=== PATIENT | male | born 1935 | race Caucasian/White ===

== ENCOUNTER 2022-05-15 15:08 | Outpatient (CLI) | payer MEDICARE, BC, SELFPAY ==
[2022-05-15 17:23] LABS: Chloride* 100 mmol/L (96-114); Potassium* 3.2 mmol/L (3.6-5.1); Sodium* 140 mmol/L (135-149)
[2022-05-15 17:25] LABS: Creatinine* 0.9 mg/dL (0.5-1.5); Estimated Glomerular Filt Rate 84 ml/min
[2022-05-15 17:26] LABS: Blood Urea Nitrogen* 29 mg/dL (7-30); Calcium* 9.2 mg/dL (8.4-10.6); Carbon Dioxide* 29 mmol/L (20-32); Glucose* 116 mg/dL (60-115)
== END 2022-05-15 15:09 | disposition home or self-care (01) ==
PROVIDERS: PCP Family Medicine; Visit Provider Family Medicine
DX: R10.31 Right lower quadrant pain (principal); R06.00 Dyspnea, unspecified; I10 Essential (primary) hypertension
CPT/HCPCS: 80048; 84443

== ENCOUNTER 2022-05-19 10:30 | Outpatient (CLI) | payer MEDICARE, BC, SELFPAY ==
--- NOTE | 2022-05-19 11:00 | CRLHL7_ITS ---
For Patients: As a result of the Century Cures Act, medical imaging exams and procedure reports are released immediately into your electronic medical record. You may view this report before your referring provider. If you have questions, please contact your health care provider. Indication: RLQ pain Technique: Noncontrast CT abdomen and pelvis Please note that all CT scans at this facility use dose modulation, iterative reconstruction, and/or weight-based dosing when appropriate to reduce radiation dose to as low as reasonably achievable. Comparison: 02/17/2019 Findings: Areas of scarring are present within the visualized lungs. No pleural effusion is present. Tortuosity of the descending thoracic aorta noted. Calcified left hilar lymph nodes are present sequela granulomatous disease. Dense calcifications in the coronary arteries. Calcified granulomas in the spleen. Adrenal glands are normal. Simple water attenuation cysts both kidneys. On the left, these cysts measure up to 7.2 cm and on the right there is a cyst measuring 4.4 cm. No renal stones or hydronephrosis. The gallbladder is normal. The noncontrast enhanced liver is within normal limits. Mild pancreatic atrophy. Vascular calcifications in the aorta. No aneurysm. The bladder is incompletely distended. A small left-sided diverticulum is noted. Colonic diverticulosis. No diverticulitis. There is no bowel obstruction or acute areas of inflammation. The appendix is within normal limits. No free air, free fluid or adenopathy. Postoperative changes of left hip replacement and lumbar spine fusion noted. No acute fracture is present. Impression: No acute intra-abdominal or intrapelvic pathology. Normal appendix without evidence of appendicitis. Incidental renal cysts without hydronephrosis. Please note that all CT scans at this facility use dose modulation, iterative reconstruction, and/or weight-based dosing when appropriate to reduce radiation dose to as low as reasonably achievable. Dictated by Jas Olvera MD @ 05/19/2022 12:36:38 PM (Electronically Signed)
== END 2022-05-19 10:31 | disposition home or self-care (01) ==
LOC: CT 10:31
PROVIDERS: PCP Family Medicine; Visit Provider Family Medicine
DX: R10.31 Right lower quadrant pain (principal); N28.1 Cyst of kidney, acquired
CPT/HCPCS: 74176

== ENCOUNTER 2022-08-11 10:52 | Outpatient (CLI) | payer MEDICARE, BC, SELFPAY | END 2022-08-11 10:53 | disposition home or self-care (01) | LOC: RAD 10:55 | PROVIDERS: PCP Family Medicine; Visit Provider Family Medicine | DX: R06.09 Other forms of dyspnea (principal); I51.7 Cardiomegaly; I35.1 Nonrheumatic aortic (valve) insufficiency; I48.20 Chronic atrial fibrillation, unspecified | CPT/HCPCS: 93306 ==

== ENCOUNTER 2022-11-23 17:53 | Emergency (ER) | payer MEDICARE, BC, SELFPAY ==
[2022-11-23 17:58] VITALS: BP 98/63; PULSE 71; RESP 18; TEMP 36.7; O2SAT 94; BMI 33.9
--- NOTE | 2022-11-23 18:23 | CRLHL7_ITS ---
For Patients: As a result of the Century Cures Act, medical imaging exams and procedure reports are released immediately into your electronic medical record. You may view this report before your referring provider. If you have questions, please contact your health care provider. INDICATION: Diarrhea. TECHNIQUE: CT abdomen and pelvis acquired with 97 cc Isovue 370 IV contrast. COMPARISON: 05/19/2022. FINDINGS: Lower chest: Coronary artery calcifications. Calcified left hilar lymph nodes, likely sequela of healed granulomatous disease. Liver: Hepatic steatosis. Gallbladder and bile ducts: Unremarkable. No stones or inflammation. No biliary ductal dilatation. Spleen: Normal in size. Few calcified granulomas. Adrenal glands: Unremarkable. No nodules. Pancreas: Fatty atrophy. Kidneys: Bilateral renal cysts. Subcentimeter hypodense foci are too small to accurately characterize but statistically likely cysts. No stones or hydronephrosis. GI tract: Normal in caliber. No evidence of obstruction. Fluid-filled colon. Scattered colonic diverticula without evidence of diverticulitis. Appendix not visualized. Lymph nodes: No lymphadenopathy. Vasculature: Scattered atherosclerotic calcifications. Omentum/Peritoneum/Abdominal Wall: Small fat containing umbilical hernia. No free air or significant free fluid. Pelvis: Status post prostatectomy. Few small urinary bladder diverticula, possibly sequela of chronic bladder outlet obstruction. Bones: Degenerative changes of the spine. L4-S1 spinal fusion. Left hip arthroplasty. IMPRESSION: 1. Fluid-filled colon, likely reflecting diarrheal state. 2. Scattered colonic diverticula without evidence of diverticulitis. 3. Hepatic steatosis. Please note that all CT scans at this facility use dose modulation, iterative reconstruction, and/or weight-based dosing when appropriate to reduce radiation dose to as low as reasonably achievable. Dictated by Tanner Garcia MD @ 11/23/2022 8:04:55 PM (Electronically Signed)
--- NOTE | 2022-11-23 18:40 | ED.GENADULT ---
HPI - General Adult General Date Seen: 11/23/22 Chief complaint: Diarrhea Stated complaint: Abdominal pain and diarrhea Time Seen by Provider: 11/23/22 18:11 Source: patient and family Mode of arrival: ambulatory Limitations: no limitations History of Present Illness HPI narrative: Patient is an 87-year-old male brought into the ER by his with concerns of watery stools that have gone on just today. He has gone more than 10 times. He has not seen anything black or bloody. He denies any weakness, chest pain, shortness of breath. He has some chronic ankle edema which is unchanged. He had a similar day like this about two weeks ago that resolved in less than 24 hours. He has no appetite but denies vomiting. He is on Coumadin and had a protime checked a couple of weeks ago. Related Data Home Medications Medication Instructions Recorded Confirmed multivitamin (Multiple Vitamins 1 tab PO QAM 12/20/21 05/15/22 tablet) omega-3 fatty acids-fish oil 340 1 cap PO QDAY 12/20/21 05/15/22 mg-1,000 mg capsule (Fish Oil) triamcinolone acetonide 0.5 % 1 applic topical BID 12/20/21 05/15/22 topical cream metolazone 5 mg tablet 5 mg PO QDAY 11/23/22 11/23/22 torsemide 20 mg tablet 20 mg PO QDAY 11/23/22 11/23/22 Previous Rx's Medication Instructions Recorded atorvastatin 20 mg tablet 20 mg PO .Bedtime #90 tabs 12/20/21 metolazone 5 mg tablet 5 mg PO QDAY #90 tabs 12/20/21 oxycodone 5 mg tablet 5 - 10 mg (1 - 2 x 5 mg) PO QPM 01/30/22 PRN pain #45 tabs tramadol 50 mg tablet 50 mg PO Q8H PRN pain #30 tabs 02/25/22 metoprolol succinate 50 mg 50 mg PO DAILY #90 tabs 04/04/22 tablet,extended release 24 hr diltiazem HCl 240 mg See Rx Instructions .Route 05/02/22 capsule,extended release 24 hr .COMPLEX #90 caps potassium chloride 10 mEq 10 meq PO QDAY #90 caps 05/16/22 capsule,extended release gabapentin 100 mg capsule See Rx Instructions .Route 05/26/22 .COMPLEX #180 caps zolpidem 10 mg tablet 10 mg PO .hs #30 tabs 10/05/22 warfarin 5 mg tablet See Rx Instructions PO DAILY #135 11/07/22 tabs Allergies Allergy/AdvReac Type Severity Reaction Status Date / Time No Known Allergies Allergy Verified 11/23/22 18:01 Review of Systems Narrative: Review of systems is outlined above otherwise noted to be negative. He is on Coumadin chronically for atrial fibrillation. He does have some neuropathy symptoms and some hearing loss. [facility] Medical History Encounter for counseling regarding advance directives (06/10/09) Surgical History History of arthroplasty of left hip History of blepharoplasty History of fusion of lumbar spine Status post arthroscopy of right knee (01/01/09) Status post tonsillectomy and adenoidectomy Status post transurethral resection of prostate Social History Smoking Status: Never smoker Non-prescribed substance use: denies use Exam Narrative: Exam Narrative: Vitals noted. He is in no distress. HEENT: Conjunctiva clear. Tympanic membranes are pearly white bilaterally. Posterior pharynx is clear without erythema or exudate. Neck is supple without adenopathy, thyromegaly, carotid bruit. Lungs: Clear to auscultation in all ambrosio. No wheezes, rales, rhonchi. Heart: Irregularly irregular rate and rhythm with a systolic murmur. Abdomen: Soft and nontender. No guarding, rigidity, rebound. Bowel sounds are normal. No palpable masses. Extremities: He has 1+ edema on the left and 2+ on the right. Good distal pulses. Skin: No abnormalities noted of the exposed skin. Neurologic: Awake, alert, fully oriented. Neurologic exam is nonfocal. He has stocking-glove distribution neuropathy. Const: Vital Signs, click to edit/add: Vital Signs - 24 hr 11/23/22 17:58 11/23/22 20:12 Temperature 98.0 F 98.1 F Pulse Rate [Left P ulse Oximeter] 71 70 Respiratory Rate 18 16 Blood Pressure [Ri ght Upper Arm] 98/63 102/64 Pulse Oximetry 94 97 Oxygen Delivery Me thod Room Air Room Air Course Course Hospital Course: Patient seen and examined. He is afebrile and vitally stable. IV is established and he is given 500 mL of normal saline. Labs and CT of the abdomen and pelvis are ordered. Reevaluation(s) Reevaluation #1: CBC, BMP, LFTs are unremarkable. INR is 3.66. CT shows a fluid-filled loops of bowel. No evidence of colitis or other worrisome pathology. Vital Signs Vital signs: Initial Vital Signs Temperature 98.0 F 11/23/22 17:58 Temperature Source Temporal Artery Scan 11/23/22 17:58 Pulse Rate 71 11/23/22 17:58 Pulse Rhythm Regular 11/23/22 17:58 Pulse Strength 3+ Normal 11/23/22 17:58 Respiratory Rate 18 11/23/22 17:58 Blood Pressure 98/63 11/23/22 17:58 Blood Pressure Mean 74 11/23/22 17:58 Blood Pressure Position Sitting 11/23/22 17:58 Pulse Oximetry 94 11/23/22 17:58 Oxygen Delivery Method Room Air 11/23/22 17:58 Vital Signs Temperature 98.0 F 11/23/22 17:58 Pulse Rate 71 11/23/22 17:58 Respiratory Rate 18 11/23/22 17:58 Blood Pressure 98/63 11/23/22 17:58 Pulse Oximetry 94 11/23/22 17:58 Oxygen Delivery Method Room Air 11/23/22 17:58 Temperature 98.1 F 11/23/22 20:12 Pulse Rate 70 11/23/22 20:12 Respiratory Rate 16 11/23/22 20:12 Blood Pressure 102/64 11/23/22 20:12 Pulse Oximetry 97 11/23/22 20:12 Oxygen Delivery Method Room Air 11/23/22 20:12 Medical Decision Making Lab Data Labs: Lab Results 11/23/22 Range/Units 18:35 WBC 9.63 (4.50-11.00) K/uL RBC 4.59 (4.30-5.90) m/uL Hgb 13.5 (13.5-17.5) gm/dL Hct 40.6 (37.0-53.0) % MCV 89 (80-100) fL MCH 29 (26-34) pg MCHC 33 (32-36) gm/dL RDW Coeff of [place] 14.3 (11.5-15.5) % Plt Count 212 (140-440) K/uL Neut % (Auto) 87.3 H (42.0-72.0) % Lymph % (Auto) 3.3 L (20-44) % [place] % (Auto) 8.4 (0.0-11.0) % Eos % (Auto) 0.2 (0.0-7.0) % Baso % (Auto) 0.2 (0.0-3.0) % Neut # (Auto) 8.40 H (1.7-7.0) K/uL Lymph # (Auto) 0.30 L (0.90-2.90) K/uL [place] # (Auto) 0.80 (0.00-0.90) K/UL Eos # (Auto) 0.02 (0.00-0.50) K/uL Baso # (Auto) 0.02 (0.00-0.30) K/uL INR 3.66 H (0.91-1.10) Sodium 135 (135-149) mmol/L Potassium 4.1 (3.6-5.1) mmol/L Chloride 100 (96-114) mmol/L Carbon Dioxide 25 (20-32) mmol/L BUN 33 H (7-30) mg/dL Creatinine 1.2 (0.5-1.5) mg/dL Estimated Creat Clear 39.88 Estimated GFR 59 ml/min Glucose 113 (60-115) mg/dL Calcium 8.0 L (8.4-10.6) mg/dL Total Bilirubin 0.7 (0.1-1.5) mg/dL Direct Bilirubin 0.0 (0.0-0.5) mg/dL AST 27 (12-35) U/L ALT 26 (4-50) U/L Alkaline Phosphatase 62 (40-150) U/L Total Protein 6.4 (6.0-8.3) g/dL Albumin 3.7 (3.3-5.0) g/dL Discharge Plan Discharge Clinical Impression: Diarrhea Patient Disposition: Home, Self-Care Condition: Improved Additional Instructions: Your labs are all reassuring. No Coumadin for 3 days and then resume current dose. Push fluids. [place] diet. Imodium is ok to use if diarrhea not improving over the next 1-2 days. Follow up with Dr Barth if not improving over the next 3-5 days. Tylenol for cramps. Prescriptions: No Action torsemide 20 mg tablet 20 mg PO QDAY metolazone 5 mg tablet 5 mg PO QDAY multivitamin [Multiple Vitamins] Tablet 1 tab PO QAM Fish Oil 340-1,000 mg capsule 1 cap PO QDAY triamcinolone acetonide 0.5 % cream 1 applic topical BID Rx Instructions: Apply to affected areas BID. metolazone 5 mg tablet 5 mg PO QDAY Qty: 90 3RF atorvastatin 20 mg tablet 20 mg PO .Bedtime Qty: 90 3RF oxycodone 5 mg tablet 5 - 10 mg PO QPM PRN (Reason: pain) Qty: 45 0RF tramadol 50 mg tablet 50 mg PO Q8H PRN (Reason: pain) Qty: 30 2RF metoprolol succinate 50 mg tablet extended release 24 hr 50 mg PO DAILY Qty: 90 2RF diltiazem HCl 240 mg capsule,extended release 24hr See Rx Instructions .ROUTE .COMPLEX Qty: 90 3RF Dose Instruction: TAKE ONE CAPSULE BY MOUTH ONCE DAILY Rx Instructions: TAKE ONE CAPSULE BY MOUTH ONCE DAILY potassium chloride 10 mEq capsule, extended release 10 meq PO QDAY Qty: 90 3RF gabapentin 100 mg capsule See Rx Instructions .ROUTE .COMPLEX Qty: 180 3RF Dose Instruction: TAKE TWO CAPSULES BY MOUTH AT BEDTIME Rx Instructions: TAKE TWO CAPSULES BY MOUTH AT BEDTIME zolpidem 10 mg tablet 10 mg PO .hs Qty: 30 2RF warfarin 5 mg tablet See Rx Instructions PO DAILY Qty: 135 4RF Rx Instructions: 5 mg QD except 7.5 mg QWed orally daily; Greene 5 MG, M 5 MG, Tu 5 MG, W 7.5 MG, Th 5 MG, F 5 MG, Sa 5 MG Follow Up/Referrals: Rafa Barth MD [Primary Care Provider] - Stand Alone Forms: [facility] Info Instructions
[2022-11-23 18:46] LABS: Basophils Absolute Auto 0.02 K/uL (0.00-0.30); Basophils Percent Auto 0.2 % (0.0-3.0); Eosinophils Absolute Auto 0.02 K/uL (0.00-0.50); Eosinophils Percent Auto 0.2 % (0.0-7.0); Hematocrit 40.6 % (37.0-53.0); Hemoglobin* 13.5 gm/dL (13.5-17.5); Immature Granulocytes Abs Auto 0.06 K/uL (0.00-0.30); Immature Granulocytes Pct Auto 0.6 %; Lymphocytes Percent Auto 3.3 % (20-44); Mean Corpuscular HGB Conc 33 gm/dL (32-36); Mean Corpuscular Hemoglobin 29 pg (26-34); Mean Corpuscular Volume 89 fL (80-100); Monocytes Percent Auto 8.4 % (0.0-11.0); Neutrophils Percent Auto 87.3 % (42.0-72.0); Platelet Count* 212 K/uL (140-440); RDW Coefficient of Variation % 14.3 % (11.5-15.5); Red Blood Count 4.59 m/uL (4.30-5.90); White Blood Count* 9.63 K/uL (4.50-11.00)
[2022-11-23] MEDS: 0.9 % SODIUM CHLORIDE 500 ML 500 ML 250 ML IV (18:49)
[2022-11-23 18:53] LABS: Slide Review Reflex No
[2022-11-23 19:02] LABS: Albumin* 3.7 g/dL (3.3-5.0)
[2022-11-23 19:03] LABS: Chloride* 100 mmol/L (96-114); Potassium* 4.1 mmol/L (3.6-5.1); Sodium* 135 mmol/L (135-149)
[2022-11-23 19:05] LABS: Alkaline Phosphatase* 62 U/L (40-150); Aspartate Amino Transferase* 27 U/L (12-35); Bilirubin Total* 0.7 mg/dL (0.1-1.5); Blood Urea Nitrogen* 33 mg/dL (7-30); Carbon Dioxide* 25 mmol/L (20-32); Creatinine* 1.2 mg/dL (0.5-1.5); Est. Creatinine Clearance* 39.88; Estimated Glomerular Filt Rate 59 ml/min; INR 3.66 (0.91-1.10); Prothrombin Time 38.1 Seconds; Total Protein* 6.4 g/dL (6.0-8.3)
[2022-11-23 19:06] LABS: Alanine Aminotransferase* 26 U/L (4-50); Glucose* 113 mg/dL (60-115)
[2022-11-23 20:12] VITALS: BP 102/64; PULSE 70; RESP 16; TEMP 36.7; O2SAT 97
== END 2022-11-23 20:40 | disposition home or self-care (01) ==
PROVIDERS: Emergency Provider Family Medicine; PCP Family Medicine
DX: R19.7 Diarrhea, unspecified (principal)
CPT/HCPCS: 36415; 74177; 80048; 80076; 85025; 85610; 99282; 99284; 99285; J7120; Q9967

== ENCOUNTER 2023-01-09 09:13 | Outpatient (CLI) | payer MEDICARE, BC, SELFPAY | END 2023-01-09 09:14 | disposition home or self-care (01) | PROVIDERS: PCP Family Medicine; Visit Provider Family Medicine | DX: Z00.00 Encounter for general adult medical examination without abnormal findings (principal); E78.5 Hyperlipidemia, unspecified; I10 Essential (primary) hypertension; I48.0 Paroxysmal atrial fibrillation; R60.9 Edema, unspecified | CPT/HCPCS: 80048; 80061; 82607; 85610 ==

== ENCOUNTER 2023-02-13 08:58 | Outpatient (CLI) | payer MEDICARE, BC, SELFPAY | END 2023-02-13 08:59 | disposition home or self-care (01) | LOC: NFLDREF 02-14 00:19 | PROVIDERS: PCP Family Medicine; Referring Provider Family Medicine; Visit Provider Family Medicine | DX: I48.0 Paroxysmal atrial fibrillation (principal) | CPT/HCPCS: 85610 ==

== ENCOUNTER 2023-02-19 09:27 | Outpatient (CLI) | payer MEDICARE, BC, SELFPAY | END 2023-02-19 09:28 | disposition home or self-care (01) | LOC: NFLDREF 02-22 09:30 | PROVIDERS: PCP Family Medicine; Referring Provider Family Medicine; Visit Provider Family Medicine | DX: I48.0 Paroxysmal atrial fibrillation (principal); Z79.01 Long term (current) use of anticoagulants | CPT/HCPCS: 85610 ==

== ENCOUNTER 2023-03-20 10:06 | Emergency (ER) | payer MEDICARE, BC, SELFPAY ==
[2023-03-20 10:09] VITALS: BP 154/83; PULSE 62; RESP 18; TEMP 36.3; O2SAT 97; BMI 41.6
--- NOTE | 2023-03-20 11:06 | CRLHL7_ITS ---
For Patients: As a result of the Cures Act, medical imaging exams and procedure reports are released immediately into your electronic medical record. You may view this report before your referring provider. If you have questions, please contact your health care provider. INDICATION: Fall 1 week ago, hip Pain TECHNIQUE: Single view pelvis with AP and frogleg views of the right hip. COMPARISONS: None available. FINDINGS: There is a left hip arthroplasty with extensive osteophyte and joint capsule calcification. The right femoral head is well seated in the acetabulum. There is no evidence of displaced fracture or dislocation. There is moderate degenerative change of the right hip. There is no significant degenerative change. The soft tissues are unremarkable. IMPRESSION: Moderate degenerative change of the right hip without acute osseous abnormality. Dictated by Michael Alegria MD @ 03/20/2023 11:53:39 AM (Electronically Signed)
--- NOTE | 2023-03-20 11:16 | ED_ITS ---
HPI - General Adult General Date Seen: 03/20/23 Chief complaint: Hip Injury/Pain Stated complaint: rt hip pain Time Seen by Provider: 03/20/23 11:01 Source: patient Mode of arrival: ambulatory Limitations: no limitations History of Present Illness HPI narrative: Patient is an 87-year-old gentleman here with his for evaluation of pain in his right hip and leg since a fall about a week ago. He says that initially was hurting just back at the upper posterior leg near the gluteal cleft but it has moved now more up into the hip. He is needing to use a walker because he is not able to put weight on it without that. He denies other injuries. He has had problems with swelling in that leg for the past couple of months, he says he was seen and had some sort of test done, he is not sure exactly what it was or what they were looking for, something to do with blood vessels. He says he was told that that looked fine and that he was ?just getting old, which he says he did not appreciate. Related Data Home Medications Medication Instructions Recorded Confirmed multivitamin (Multiple Vitamins 1 tab PO QAM 12/20/21 01/09/23 tablet) omega-3 fatty acids-fish oil 340 1 cap PO QDAY 12/20/21 01/09/23 mg-1,000 mg capsule (Fish Oil) triamcinolone acetonide 0.5 % 1 applic topical BID 12/20/21 01/09/23 topical cream torsemide 20 mg tablet 20 mg PO QDAY 11/23/22 01/09/23 Previous Rx's Medication Instructions Recorded diltiazem HCl 240 mg See Rx Instructions .Route 05/02/22 capsule,extended release 24 hr .COMPLEX #90 caps potassium chloride 10 mEq 10 meq PO QDAY #90 caps 05/16/22 capsule,extended release zolpidem 10 mg tablet 10 mg PO .hs #30 tabs 10/05/22 warfarin 5 mg tablet See Rx Instructions PO DAILY #135 11/07/22 tabs tramadol 50 mg tablet 50 mg PO Q8H PRN pain #30 tabs 11/27/22 amoxicillin 500 mg capsule 2,000 mg (4 x 500 mg) PO ONCE #8 12/21/22 caps metoprolol succinate 50 mg 50 mg PO DAILY #90 tabs 12/21/22 tablet,extended release 24 hr atorvastatin 20 mg tablet 20 mg PO .Bedtime #90 tabs 12/28/22 metolazone 5 mg tablet 5 mg PO QDAY #90 tabs 01/28/23 Allergies Allergy/AdvReac Type Severity Reaction Status Date / Time No Known Allergies Allergy Verified 01/09/23 08:30 Review of Systems Status of ROS: Reports: 6 or more systems reviewed and unremarkable except as noted in History and below [facility] History Syncope ?R55 - Syncope and collapse (ICD-10) Encounter for counseling regarding advance directives (06/10/09) ?Z71.89 - Other specified counseling (ICD-10) Surgical History Status post transurethral resection of prostate ?Z90.79 - Acquired absence of other genital organ(s) (ICD-10) Status post tonsillectomy and adenoidectomy ?Z90.89 - Acquired absence of other organs (ICD-10) Status post arthroscopy of right knee (01/01/09) ?Z98.890 - Other specified postprocedural states (ICD-10) History of fusion of lumbar spine ?Z98.1 - Arthrodesis status (ICD-10) History of blepharoplasty ?Z98.890 - Other specified postprocedural states (ICD-10) History of arthroplasty of left hip ?Z98.890 - Other specified postprocedural states (ICD-10) Social History What is your current living situation?: I presently have a place to live Problems where you live: no known problems In the past 12 months, utilities in danger of being shut off: no In past 12 months, lack of transportation kept you from medical appts, meetings, work, or getting things needed for daily living: no In the past 12 mos, have been you worried that your food would run out before you had money to buy more?: never true In the past 12 mos, the food you bought just didn't last and you didn't have money to buy more?: never true Smoking Status: Never smoker Non-prescribed substance use: denies use How often does anyone, including family, friends and others, physically hurt you : never How often does anyone, including family, friends and others, insult or talk down to you: never How often does anyone, including family, friends and others, threaten you with harm: never How often does anyone, including family, friends and others, scream or curse at you: never Little interest or pleasure in doing things: more than half the days Feeling down, depressed, or hopeless: several days Exam Narrative: Exam Narrative: Vital signs reviewed In general, alert, well-appearing elderly male, lying comfortably in bed. Extremities: He does have asymmetric edema right greater than left, though he does have edema in both legs. Pulses are intact. He has full range of motion of the right hip, does not complain of pain. He does not have any significant tenderness throughout the lateral hip or groin but is mildly tender over the hamstring. There is no bruising, swelling or deformity. No significant tenderness over the trochanteric bursa. Skin: Warm and dry, no erythema, warmth, rashes or other lesions. Const: Vital Signs, click to edit/add: Vital Signs - 24 hr 03/20/23 10:09 Temperature 97.4 F L Pulse Rate [Right Pulse Oximeter] 62 Respiratory Rate 18 Blood Pressure [Ri ght Upper Arm] 154/83 H Pulse Oximetry 97 Oxygen Delivery Me thod Room Air Documenting provider has reviewed patient's vital signs: yes Course Course ED Course: I reviewed the patient's prior records, his is under the impression that he was seen somewhere here for this leg swelling and had this test done at the hospital but I do not see any record of that. X-rays ordered of the right hip and pelvis. By my review, x-rays of the right hip and pelvis were unremarkable aside from degenerative changes. He has a hip replacement on the left, some arthritis no rodrigue on the right. Final radiology read was negative for acute fracture. He continued to note pain with weight-bearing so I elected to do a CT scan. This is read by Radiology as negative for fracture as well. He does have some stranding around the proximal hamstring muscles consistent with a muscular tendinous injury which certainly is consistent with his presentation. I suspect this is the source of his pain. He has been taking ibuprofen and Tylenol and says it is not providing adequate pain control for him. I gave him 2.5 mg of oxycodone here with some improvement. He is ambulatory with his walker without difficulty and is comfortable going home. He asked if an injection would be helpful, at this time I think that is unlikely since I think the pain is likely coming from the proximal hamstring, but encouraged him to follow up with Orthopedics if he is not gradually improving with conservative measures over the next week or 2. Return any time for worsening. I gave him 4 tablets of oxycodone to use 1/2 tablet as needed in addition to Tylenol 1000 mg daily. Recommend ice and relative rest. Vital Signs Vital signs: Initial Vital Signs Temperature 97.4 F L 03/20/23 10:09 Temperature Source Temporal Artery Scan 03/20/23 10:09 Pulse Rate 62 03/20/23 10:09 Respiratory Rate 18 03/20/23 10:09 Blood Pressure 154/83 H 03/20/23 10:09 Blood Pressure Mean 106 H 03/20/23 10:09 Blood Pressure Position Sitting 03/20/23 10:09 Pulse Oximetry 97 03/20/23 10:09 Oxygen Delivery Method Room Air 03/20/23 10:09 Vital Signs Temperature 97.4 F L 03/20/23 10:09 Pulse Rate 62 03/20/23 10:09 Respiratory Rate 18 03/20/23 10:09 Blood Pressure 154/83 H 03/20/23 10:09 Pulse Oximetry 97 03/20/23 10:09 Oxygen Delivery Method Room Air 03/20/23 10:09 Temperature 97.4 F L 03/20/23 10:09 Pulse Rate 62 03/20/23 10:09 Respiratory Rate 18 03/20/23 10:09 Blood Pressure 154/83 H 03/20/23 10:09 Pulse Oximetry 97 03/20/23 10:09 Oxygen Delivery Method Room Air 03/20/23 10:09 Discharge Plan Discharge Clinical Impression: Right hamstring injury Patient Disposition: Home, Self-Care Condition: Improved Instructions: Hamstring Injury (ED) Additional Instructions: Ice, continue with Tylenol 1000 mg 3 times daily. If needed, you can use oxycodone for uncontrolled pain. Be aware that this can be habit-forming if taken for longer time. , can be associated with dizziness or lightheadedness, fatigue, constipation. Use only as needed. My suspicion is that your pain is coming from muscular injury and is unlikely to be helped by an injection to the hip joint, but if you find you are not improving over the next week or 2 it would be reasonable to follow up with Orthopedics for re-evaluation. [phone] if you need to schedule with them. Prescriptions: No Action torsemide 20 mg tablet 20 mg PO QDAY multivitamin [Multiple Vitamins] Tablet 1 tab PO QAM Fish Oil 340-1,000 mg capsule 1 cap PO QDAY triamcinolone acetonide 0.5 % cream 1 applic topical BID Rx Instructions: Apply to affected areas BID. tramadol 50 mg tablet 50 mg PO Q8H PRN (Reason: pain) Qty: 30 1RF diltiazem HCl 240 mg capsule,extended release 24hr See Rx Instructions .ROUTE .COMPLEX Qty: 90 3RF Dose Instruction: TAKE ONE CAPSULE BY MOUTH ONCE DAILY Rx Instructions: TAKE ONE CAPSULE BY MOUTH ONCE DAILY potassium chloride 10 mEq capsule, extended release 10 meq PO QDAY Qty: 90 3RF zolpidem 10 mg tablet 10 mg PO .hs Qty: 30 2RF warfarin 5 mg tablet See Rx Instructions PO DAILY Qty: 135 4RF Rx Instructions: 5 mg QD except 7.5 mg QWed orally daily; Greene 5 MG, M 5 MG, Tu 5 MG, W 7.5 MG, Th 5 MG, F 5 MG, Sa 5 MG metoprolol succinate 50 mg tablet extended release 24 hr 50 mg PO DAILY Qty: 90 2RF amoxicillin 500 mg capsule 2,000 mg PO ONCE Qty: 8 1RF atorvastatin 20 mg tablet 20 mg PO .Bedtime Qty: 90 0RF metolazone 5 mg tablet 5 mg PO QDAY Qty: 90 3RF Follow Up/Referrals: Rafa Barth MD [Primary Care Provider] - Stand Alone Forms: [facility] Info Instructions
--- NOTE | 2023-03-20 12:06 | CRLHL7_ITS ---
For Patients: As a result of the Century Cures Act, medical imaging exams and procedure reports are released immediately into your electronic medical record. You may view this report before your referring provider. If you have questions, please contact your health care provider. Indication: Fall, painful weight-bearing. Technique: Noncontrast CT of the right hip. Please note that all CT scans at this facility use dose modulation, iterative reconstruction, and/or weight-based dosing when appropriate to reduce radiation dose to as low as reasonably achievable. Comparison: Radiographs 03/20/2023. Findings: The bones are diffusely demineralized, which limits evaluation for nondisplaced fracture. No displaced fractures identified. There is severe right hip osteoarthritis with joint space loss and marginal osteophytes at the acetabulum and femoral head neck junction. Moderate degenerative changes of the right sacroiliac joint. Extensive atherosclerotic arterial calcifications. Mild stranding surrounding the proximal hamstring muscles without definite intramuscular fluid collection. Impression: 1. No displaced fracture identified. If there is continued clinical concern for CT occult fracture, MRI is recommended. 2. Stranding about the proximal hamstring muscles may be related to muscle strain/myotendinous injury. 3. Severe right hip osteoarthritis. Please note that all CT scans at this facility use dose modulation, iterative reconstruction, and/or weight-based dosing when appropriate to reduce radiation dose to as low as reasonably achievable. Dictated by Kristel Nava MD @ 03/20/2023 1:08:50 PM (Electronically Signed)
[2023-03-20] MEDS: OXYCODONE 5 MG TABLET 2.5 MG PO (13:37)
== END 2023-03-20 14:10 | disposition home or self-care (01) ==
PROVIDERS: Emergency Provider Emergency Medicine; PCP Family Medicine
DX: S76.311A Strain of muscle, fascia and tendon of the posterior muscle group at thigh level, right thigh, initial encounter (principal)
CPT/HCPCS: 73502; 73700; 99283; 99284; A9270

== ENCOUNTER 2023-07-20 06:47 | Outpatient (CLI) | payer MEDICARE, BC, SELFPAY ==
--- OUTSIDE RECORDS SUMMARY | 2023-07-21 06:56 | XMS_ITS | Clinical Summary ---
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 0 Active Aosrg-4-GXJ-EPA-F anat Oil 1,000 mg (120 mg-180 mg) [...] mouth once daily. 0 04/13/2022 Active vit C,N-Wx-fyftf-lute in-zeaxan (PreserVision AREDS-2) capsule Take 1 Capsule [...] Name Administration Dates Next Due COVID-19 vaccine ([employer] NTVisualDNA 30mcg/0.3mL) PF, MDV 03/18/2021,08/14/2020,07/24/2020 Influenza, High-dose Inactivated [...] T Respiratory Rate 16 04/20/2017 9:20 AM CAR CHECKER Oxygen Saturation 96% 08/31/2022 1:57 PM CDT Inhaled Oxygen Concentration - - Weight 118.4 kg (261 lb) 08/31/2022 1:57 PM CDT Height 169.5 cm (5' 6.73) 08/11/2022 9:12 AM CS T Body Mass Index 41.21 08/11/2022 9:12 AM CAR CHECKER Plan of Treatment Health Maintenance Due Date [...] Completed 01/24/2012 Medical Devices Implanted Type Area Supervisor Fishing Device Identifier Shelf Expiration Date Model / Serial / Lot Vincent Lmbr 70x5.5mm Tsrh 3d Cvd Titwv - [id number] Implanted:Qty: 2 on 04/17/2017 by Carlos A Del Castillo MD at [facility] Spine Implants N/A: Lumbar Vertebrae Medtronic Spine/Ortho [id number] / / Bone Matrix 6cc Pine Dbf Putty Db - [id number] Implanted:Qty: 1 on 04/17/2017 by Carlos A Del Castillo MD at [facility] N/A: Lumbar Vertebrae Medtronic Spine/Ortho 01/15/2019 [id number] / / [id number] Cnnctr Lmbr Tsrh 3dx Offsettitnm - [id number] Implanted:Qty: 1 on 04/17/2017 by Carlos A Del Castillo MD at [facility] N/A: Lumbar Vertebrae Medtronic Spine/Ortho [id number] / / Bone Matrix 6cc Pine Dbf Putty Dbm - [id number] Implanted:Qty: 1 on 04/17/2017 by Carlos A Del Castillo MD at [facility] N/A: Lumbar Vertebrae Medtronic Spine/Ortho 01/15/2019 [id number] / / [id number] Bone 1-4mm 60cc Medtronic Chips Canclls Frozen - [id number] Implanted:Qty: 1 on 04/17/2017 by Carlos A Del Castillo MD at [facility] N/A: Lumbar Vertebrae Medtronic Spine/Ortho 06/17/2021 [id number] / [id number] / [id number] Spacer Lmbr 63u92ao Capstone Tlif Titnm Coating - [id number] Implanted:Qty: 1 on 04/17/2017 by Carlos A Del Castillo MD at [facility] N/A: Lumbar Vertebrae Medtronic Spine/Ortho 09/24/2023 [id number] / / [id number] Spacer Lmbr [id number] Capstone Tlif Titnm Coating - [id number] Implanted:Qty: 1 on 04/17/2017 by Carlos A Del Castillo MD at [facility] N/A: Lumbar Vertebrae Medtronic Spine/Ortho 08/16/2024 [id number] / / [id number] Screw Lmbr Post 7.5x50mm Tsrh 3dx Og Thin Va - [id number] Implanted:Qty: 3 on 04/17/2017 by Carlos A Del Castillo MD at [facility] N/A: Lumbar Vertebrae Medtronic Spine/Ortho [id number] # / / Screw Lmbr Post 7.5x45mm Tsrh 3dx Og Thin Va - [id number] Implanted:Qty: 3 on 04/17/2017 by Carlos A Del Castillo MD at [facility] N/A: Lumbar Vertebrae Medtronic Spine/Ortho [id number] # / / Set Screw Lmbr Ts 3dx - [id number] Implanted:Qty: 6 on 04/17/2017 by Carlos A Del Castillo MD at [facility] N/A: Lumbar Vertebrae Medtronic Spine/Ortho [id number] / / Cnnctr Lmbr Sm Tsrh 3dx Offsettitnm - [id number] Implanted:Qty: 5 on 04/17/2017 by Carlos A Del Castillo MD at [facility] N/A: Lumbar Vertebrae Medtronic Spine/Ortho [id number] / / Additional Health Concerns Infection Onset [...] Code Status Discussion: Not Discussed Care Teams Splicing Machine Operator Relationship Specialty Start Date End Date Aditi Jackson MD [address] [place] [address] PCP - General Family Practice 09/19/22
== END 2023-07-21 06:48 | disposition home or self-care (01) ==
LOC: AMB 08-15 08:42
PROVIDERS: PCP Family Medicine; Visit Provider Family Medicine
DX: S49.92XA Unspecified injury of left shoulder and upper arm, initial encounter (principal); W18.30XA Fall on same level, unspecified, initial encounter; Y92.007 Garden or yard of unspecified non-institutional (private) residence as the place of occurrence of the external cause
CPT/HCPCS: A0425; A0427

== ENCOUNTER 2023-07-20 08:09 | Emergency (ER) | payer MEDICARE, BC, SELFPAY ==
[2023-07-20] VITALS (24 sets, daily range): BP systolic 135–146; BP diastolic 79–85; PULSE 85–97; RESP 20; TEMP 38.1–38.8; O2SAT 91–96; BMI 39.5
--- NOTE | 2023-07-20 08:27 | XR_ITS ---
Final Report Patient: KRISTINE SIMPSON Facility:?[facility] Patient ID:?[id number] Site Patient ID:?[id number]. Site :?[id number] Study:?XRay Shoulder Left 3 VIEWS-07/20/2023 9:51:35 AM Ordering Physician:GHULAM Final Report: Indication: Injury, pain Technique: Left shoulder 3 views. Comparison: None. Findings: Type 2 acromion is present. Chronic ossicle adjacent to the lateral acromion. Narrowing and spurring at the acromioclavicular and glenohumeral joints. No acute fracture. Impression: No sign of acute injury. Dictated by Jas Olvera MD @ 07/20/2023 10:37:27 AM (Electronic Signature)
--- NOTE | 2023-07-20 08:28 | XR_ITS ---
Final Report Patient: KRISTINE SIMPSON Facility:?[facility] Patient ID:?[id number] Site Patient ID:?[id number]. Site :?[id number] Study:?XRay Chest 2 VIEWS-07/20/2023 9:54:13 AM Ordering Physician:GHULAM Final Report: INDICATION: Shortness of breath TECHNIQUE: Chest 2 views COMPARISON: 02/20/2019 FINDINGS: Reticulonodular densities are present within both lung bases. Cardiomegaly. Aortic tortuosity. No pleural effusion. No vertebral body compression fracture. IMPRESSION: CHF suspected. Dictated by Jas Olvera MD @ 07/20/2023 10:34:36 AM (Electronic Signature)
--- OUTSIDE RECORDS SUMMARY | 2023-07-20 08:37 | XMS_ITS | Clinical Summary ---
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 Max acetaminophen dose: 4000mg in 24 hrs. 0 Active Zyslp-4-MME-EPA-F anat Oil 1,000 mg (120 mg-180 mg) cap Take by mouth. 0 Active diltiazem CD (CARDIZEM CD) 240 mg extended release 24 hr capsule Take 240 mg by mouth once daily. 0 Active metOLazone (ZAROXOLYN) 5 mg tablet Take 5 mg by mouth once daily. 0 12/20/2021 Active atorvastatin (LIPITOR) 20 mg tablet Take 20 mg by mouth at bedtime. 0 04/04/2022 Active cholecalciferol (Vitamin D) 1,000 unit capsule Take 1 Capsule (1,000 units) by mouth once daily. 0 04/13/2022 Active vit C,O-On-clmie-lute in-zeaxan (PreserVision AREDS-2) capsule Take 1 Capsule by mouth once daily. 0 04/13/2022 Active zolpidem (AMBIEN) 10 mg tablet Take 10 mg by mouth at bedtime. 0 02/26/2022 Active gabapentin (NEURONTIN) 100 mg capsule Take 2 Capsules (200 mg) by mouth at bedtime. 0 04/13/2022 Active bisacodyL (DULCOLAX) 10 mg suppositoryIndica tions:Constipatio n, acute Insert 1 Suppository (10 mg) rectally once daily if needed (constipation). 4 Suppository 0 08/11/2022 Active polyethylene glycoL (MIRALAX) 17 gram/scoop powderIndications :Constipation, acute Mix 1 scoop (17 g) in liquid then take by mouth once daily. 289 g 0 08/11/2022 Active ammonium lactate 12% (LACHYDRIN) 12 % creamIndications: Xerosis cutis Apply topically to affected area(s) two times daily. 140 g 3 08/11/2022 Active potassium chloride (MICRO-K) 10 mEq Controlled-releas e capsuleIndication s:Hypokalemia Take 2 Capsules (20 mEq) by mouth once daily with a meal. 0 08/21/2022 Active warfarin (COUMADIN) 5 mg tabletIndications :Chronic atrial fibrillation (HC),Anticoagulat ion monitoring, INR range 2-3 TAKE 5MG BY MOUTH ON SUN/SUN/SUN/SUN/ AND 7.5MG ON SUNDAY/SUNDAY 104 Tablet 01/30/2023 Active Active Problems Problem Noted Date Diagnosed Date Depression, recurrent 08/04/2022 Obesity, morbid 08/04/2022 Chronic atrial fibrillation 04/13/2022 Overview: Since 2011. On warfarin. History of left hip replacement 05/22/2018 Primary osteoarthritis of right hip 05/22/2018 Trochanteric bursitis of both hips 05/22/2018 Spinal stenosis, lumbar [place] on, without neurogenic claudication 04/17/2017 Sensorineural hearing loss, bilateral 07/29/2013 Subjective tinnitus 07/29/2013 Peter's esophagus 03/16/2010 Overview: EGD 03/2010 Peter's esophagus, repeat EGD in 2 years VASOVAGAL SYNCOPE ASCENDING AORTIC ANEURYSM OBSTRUCTIVE SLEEP APNEA BENIGN PROSTATIC HYPERTROPHY Resolved Problems Problem Noted Date Diagnosed Date Resolved Date Anticoagulation monitoring, INR range 2-3 07/25/2022 12/21/2022 Immunizations Name Administration Dates Next Due COVID-19 vaccine (Abcodia NTVault Dragon 30mcg/0.3mL) PF, MDV 03/18/2021,08/14/2020,07/24/2020 Influenza, High-dose Inactivated 019,04/17/2018,03/16/2017,2015,03/29/2015 Influenza, High-dose Quadriv alent Inactivated 03/08/2022,03/10/2021,03/17/2020 Influenza, IIV3 (Age >=3 years) 04/20/2008 Influenza, IIV4 02/13/2017 Pneumococcal conj 13-Valent (Prevnar 13) 04/28/2015 Td, Preservative Free (age > = 7 Years) 04/18/2007 Tdap 01/24/2012 Social History Tobacco Use Types Packs/Day Years Used Date Smoking Tobacco: Never Smokeless Tobacco: Never Tobacco Cessation:Counseling Given: Not Answered Alcohol Use Standard Drinks/Week Comments Not Currently 0 (1 standard drink = 0.6 oz pur e alcohol) PHQ-2 Answer Date Recorded PHQ-2 TOTAL SCORE 4 04/13/2022 Social Connections Answer Date Recorded Frequency of Communication with Friends and Fami ly Not on file 04/18/2023 Alcohol Use Answer Date Recorded How often do you have a drink containing alcohol ? 2 07/25/2022 How many drinks containing a lcohol do you have on a typical day when you are drinking? 0 07/25/2022 How often do you have five or more drinks on one occasion? 0 07/25/2022 Financial Resource Strain Answer Date R ecorded Difficulty of Paying Living Expenses 3 04/13/2022 Difficulty of Paying Living Expenses Not on file 04/13/2022 Food Insecurity Answer Date Recorded Worried About Running Out of Food in the Last Ye ar 1 04/13/2022 Transportation Needs Answer Date Record ed Lack of Transportation (Medical) 1 04/13/2022 Housing Stability Answer Date Recorded Unable to Pay for Housing in the Last Year 1 04/13/2022 Sex and Gender Information Value Date Recorded Sex Assigned at Not on file Gender Identity Not on file Sexual Orientation Not on file Obstetrics History Last Filed Vital Signs Vital Sign Reading Time Taken Comments Blood Pressure 149/82 08/31/2022 1:57 PM CDT Pulse 69 08/31/2022 1:57 PM CDT Temperature 36.8 ??C (98.2 ??F) 04/20/2017 9:20 AM CS T Respiratory Rate 16 04/20/2017 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 Oxygen Saturation 96% 08/31/2022 1:57 PM CDT Inhaled Oxygen Concentration - - Weight 118.4 kg (261 lb) 08/31/2022 1:57 PM CDT Height 169.5 cm (5' 6.73) 08/11/2022 9:12 AM CS T Body Mass Index 41.21 08/11/2022 9:12 AM [employer]PER[employer] GLUING Plan of Treatment Health Maintenance Due Date Last Done Comments Zoster (shingles) series for age 50+ (1 of 2) 1986 Medicare Wellness for age 65+ 2001 Pneumococcal series for age 65+ (2 of 2 - PPSV23 or PCV20) 06/23/2015 04/28/2015 Tetanus booster 01/23/2022 01/24/2012, 04/18/2007 COVID-19 vaccine series ( season) 2023 03/18/2021, 08/14/2020, 07/24/2020 Influenza for age 65+ 02/02/2023 03/08/2022 , 03/10/2021, 03/17/2020, Additional history exists Depression screening for age 12+ 04/13/2023 04/13/20, 04/13/2022 BMI (ht and wt on same day) for age 18+ 08/12/2023 08/11/2022, 04/13/2022 Tdap Completed 01/24/2012 Medical Devices Implanted Type Area Residential Roofer Device Identifier Shelf Expiration Date Model / Serial / Lot Vincent Lmbr 70x5.5mm Tsrh 3d Cvd Titvt - [id number] Implanted:Qty: 2 on 04/17/2017 by Carlos A Del Castillo MD at [facility] Spine Implants N/A: Lumbar Vertebrae Medtronic Spine/Ortho [id number] / / Bone Matrix 6cc Kingsbury Dbf Putty Db - [id number] Implanted:Qty: 1 on 04/17/2017 by Carlos A Del Castillo MD at [facility] N/A: Lumbar Vertebrae Medtronic Spine/Ortho 01/15/2019 [id number] / / [id number] Cnnctr Lmbr Tsrh 3dx Offsettitnm - [id number] Implanted:Qty: 1 on 04/17/2017 by Carlos A Del Castillo MD at [facility] N/A: Lumbar Vertebrae Medtronic Spine/Ortho [id number]# / / Bone Matrix 6cc Kingsbury Dbf Putty Dbm - [id number] Implanted:Qty: 1 on 04/17/2017 by Carlos A Del Castillo MD at [facility] N/A: Lumbar Vertebrae Medtronic Spine/Ortho 01/15/2019 [id number]# / / [id number] Bone 1-4mm 60cc Medtronic Chips Canclls Frozen - [id number] Implanted:Qty: 1 on 04/17/2017 by Carlos A Del Castillo MD at [facility] N/A: Lumbar Vertebrae Medtronic Spine/Ortho 06/17/2021 [id number] / [id number] / [id number] Spacer Lmbr [id number] Capstone Tlif Titnm Coating - [id number] Implanted:Qty: 1 on 04/17/2017 by Carlos A Del Castillo MD at [facility] N/A: Lumbar Vertebrae Medtronic Spine/Ortho 09/24/2023 [id number]# / / [id number] Spacer Lmbr 10o71py Capstone Tlif Titnm Coating - [id number] Implanted:Qty: 1 on 04/17/2017 by Carlos A Del Castillo MD at [facility] N/A: Lumbar Vertebrae Medtronic Spine/Ortho 08/16/2024 [id number]# / / [id number] Screw Lmbr Post 7.5x50mm Tsrh 3dx Og Thin Va - [id number] Implanted:Qty: 3 on 04/17/2017 by Carlos A Del Castillo MD at [facility] N/A: Lumbar Vertebrae Medtronic Spine/Ortho [id number] # / / Screw Lmbr Post 7.5x45mm Tsrh 3dx Og Thin Va - [id number] Implanted:Qty: 3 on 04/17/2017 by Carlos A Del Castillo MD at [facility] N/A: Lumbar Vertebrae Medtronic Spine/Ortho [id number] # / / Set Screw Lmbr Ts 3dx - [id number] Implanted:Qty: 6 on 04/17/2017 by Carlos A Del Castillo MD at [facility] N/A: Lumbar Vertebrae Medtronic Spine/Ortho [id number]# / / Cnnctr Lmbr Sm Tsrh 3dx Offsettitnm - [id number] Implanted:Qty: 5 on 04/17/2017 by Carlos A Del Castillo MD at [facility] N/A: Lumbar Vertebrae Medtronic Spine/Ortho [id number]# / / Additional Health Concerns Infection Onset Date Last Indicated MRSA Clearance Comment:Order contact precautions. Nares surveillance cultures needed to clear patient if <12 months since positive culture. If >12 months since positive culture, precautions can be discontinued if patient has no MRSA risk factors. #1 +MRSA right ring wound, 7 04/12/2017 04/12/2017 MRSA Comment:Order contact precautions. Nares surveillance cultures needed to clear patient if <12 months since positive culture. If >12 months since positive culture, precautions can be discontinued if patient has no MRSA risk factors. #1 +MRSA 12/03/14, right ring 04/12/2017 04/12/2017 Advance Directives Latest Code Status on File Code Status Date Activated Date Inactivated Comments DNR 04/17/2017 5:37 PM 04/20/2017 1:08 PM DNR after the first 48 hours post operative phase. Question Answer Comments Code Status Discussion: Discussed Code Status History Code Status Date Activated Date Inactivated Comments Full Code 04/17/2017 10:39 AM 04/17/2017 5:09 PM Question Answer Comments Code Status Discussion: Not Discussed Care Teams Manager Apple Relationship Specialty Start Date End Date Aditi Jackson MD [address] [place] [address] PCP - General Family Practice 09/19/22
--- NOTE | 2023-07-20 08:51 | ED_ITS ---
HPI - General Adult General Chief complaint: Fall/Minor Trauma Stated complaint: fall Time Seen by Provider: 07/20/23 08:14 Source: patient Mode of arrival: EMS Limitations: no limitations History of Present Illness HPI narrative: Presenting to the ER via EMS with complains of shoulder pain. Patient states that 2 days ago he fell twice in 1 day by slipping on ice. He states that he did not lose consciousness. States that he did bump his head lightly the 1st time he fell but not the 2nd time. He states that the 2nd time he fell he landed on his left shoulder. He states that since then his left shoulder has been hurting quite a bit. The pain radiates down the arm. It makes his hand go numb on and off throughout the day. This morning he stated that the pain was so bad and his hand was so numb that he called the ambulance. States that the pain also radiates into the left chest. He is not short of breath. He states that he does feel more tired than usual. He denies coughing, nausea or vomiting. States that he ate normal amount of food yesterday. Did not have breakfast this morning. He states that his legs feel achy, and are perhaps more swollen than they usually are. He does not have any shortness of breath. He denies headache. He denies changes in his vision or hearing. He denies any neck or back pain. His past medical history is significant for bilateral hearing loss, obesity, hyperlipidemia, hypertension, atrial fibrillation, neuropathy, spinal stenosis, BPH, ascending aortic aneurysm, macular degeneration, tenderness, sleep apnea, history of sciatica, history of a non ST elevation MA, Peter's esophagus, anticoagulation therapy. Related Data Home Medications Medication Instructions Recorded Confirmed multivitamin (Multiple Vitamins 1 tab PO QAM 12/20/21 07/20/23 tablet) atorvastatin 20 mg tablet 20 mg PO HS 07/20/23 07/20/23 gabapentin 100 mg capsule 200 mg PO QPM 07/20/23 07/20/23 metolazone 5 mg tablet 5 mg PO DAILY 07/20/23 07/20/23 potassium chloride 10 mEq 10 meq PO DAILY 07/20/23 07/20/23 capsule,extended release zolpidem 10 mg tablet 10 mg PO HS PRN 07/20/23 07/20/23 Previous Rx's Medication Instructions Recorded warfarin 5 mg tablet See Rx Instructions PO DAILY #135 11/07/22 tabs amoxicillin 500 mg capsule 2,000 mg (4 x 500 mg) PO ONCE #8 12/21/22 caps metoprolol succinate 50 mg 50 mg PO DAILY #90 tabs 12/21/22 tablet,extended release 24 hr diltiazem HCl 240 mg See Rx Instructions .Route 07/10/23 capsule,extended release 24 hr .COMPLEX #90 caps Allergies Allergy/AdvReac Type Severity Reaction Status Date / Time No Known Allergies Allergy Verified 07/20/23 08:21 Review of Systems Status of ROS: Reports: 10 or more systems reviewed and unremarkable except as noted in History and below [facility] Medical History Syncope ?R55 - Syncope and collapse (ICD-10) Surgical History Status post transurethral resection of prostate ?Z90.79 - Acquired absence of other genital organ(s) (ICD-10) Status post tonsillectomy and adenoidectomy ?Z90.89 - Acquired absence of other organs (ICD-10) Status post arthroscopy of right knee (01/01/09) ?Z98.890 - Other specified postprocedural states (ICD-10) History of fusion of lumbar spine ?Z98.1 - Arthrodesis status (ICD-10) History of blepharoplasty ?Z98.890 - Other specified postprocedural states (ICD-10) History of arthroplasty of left hip ?Z98.890 - Other specified postprocedural states (ICD-10) Social History What is your current living situation?: I presently have a place to live Problems where you live: no known problems In the past 12 months, utilities in danger of being shut off: no In past 12 months, lack of transportation kept you from medical appts, meetings, work, or getting things needed for daily living: no In the past 12 mos, have been you worried that your food would run out before you had money to buy more?: never true In the past 12 mos, the food you bought just didn't last and you didn't have money to buy more?: never true Smoking Status: Never smoker Do you use any of these nicotine containing products: None How often do you have a drink containing alcohol: never How often do you have six or more drinks on one occasion: Never AUDIT-C Alcohol total score: 0 Non-prescribed substance use: denies use How often does anyone, including family, friends and others, physically hurt you : never How often does anyone, including family, friends and others, insult or talk down to you: never How often does anyone, including family, friends and others, threaten you with harm: never How often does anyone, including family, friends and others, scream or curse at you: never Little interest or pleasure in doing things: more than half the days Feeling down, depressed, or hopeless: several days Exam Narrative: Exam Narrative: Obese, well-developed patient in no acute distress. Alert and oriented x3. Answers questions appropriately. Mood and affect are appropriate. Thoughts are goal oriented and rational. No tangential or magical thinking noted. Patient speaks in full sentences without needing to catch his breath. HEENT: Normocephalic atraumatic. Pupils are equally round reactive to light. Extraocular muscles are intact. Conjunctivae are moist without any icterus noted. Moist mucous membranes. Neck is soft . He has no tenderness to palpation of the cervical spine. Cardiovascular: Heart is regular rate and rhythm S1 and S2 are present without any murmurs. Lungs: Clear to auscultation bilaterally no wheezes rhonchi or rales are appreciated. Abdomen: Soft, protuberant. Nontender. Normal bowel sounds. He has bruising on the anterior right abdominal wall. Extremities: Bilateral lower extremities have 2+ pitting edema. Patient has tenderness to palpation over the left anterior shoulder and proximal humerus. He has normal radial pulse of the left arm. 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 Capillary refill is normal. There is no bruising over the shoulder or arm. He can bend at the elbow but does not want to lift the arm up the shoulder. He does not appear to be uncomfortable with palpation of the elbow dying the preliminary examination. He does have swelling on fresh ecchymosis over the left knee. Swelling appears to be subcutaneous. Skin: Well perfused without any obvious rashes. Const: Vital Signs, click to edit/add: Vital Signs - 24 hr 07/20/23 08:16 07/20/23 08:27 07/20/23 09:57 Temperature 101.1 F H Pulse Rate 91 Pulse Rate [Right Pulse Oximeter] 85 Respiratory Rate 20 Blood Pressure 141/79 H Blood Pressure [Ri ght Upper Arm] 146/84 H Pulse Oximetry 94 94 93 Oxygen Delivery Me thod Room Air 07/20/23 09:58 07/20/23 10:00 07/20/23 10:15 Temperature Pulse Rate 92 92 91 Pulse Rate [Right Pulse Oximeter] Respiratory Rate Blood Pressure Blood Pressure [Ri ght Upper Arm] Pulse Oximetry 93 92 91 Oxygen Delivery Me thod 07/20/23 10:21 07/20/23 10:40 07/20/23 10:45 Temperature 100.8 F H Pulse Rate 90 97 Pulse Rate [Right Pulse Oximeter] Respiratory Rate Blood Pressure Blood Pressure [Ri ght Upper Arm] Pulse Oximetry 92 93 Oxygen Delivery Me thod 07/20/23 11:00 07/20/23 11:43 07/20/23 11:45 Temperature Pulse Rate 92 88 92 Pulse Rate [Right Pulse Oximeter] Respiratory Rate Blood Pressure Blood Pressure [Ri ght Upper Arm] Pulse Oximetry 93 93 94 Oxygen Delivery Me thod 07/20/23 11:49 07/20/23 11:50 07/20/23 12:14 Temperature 100.8 F H Pulse Rate 92 90 Pulse Rate [Right Pulse Oximeter] Respiratory Rate Blood Pressure 146/79 H Blood Pressure [Ri ght Upper Arm] Pulse Oximetry 94 94 Oxygen Delivery Me thod 07/20/23 12:15 07/20/23 12:37 07/20/23 12:45 Temperature Pulse Rate 94 95 94 Pulse Rate [Right Pulse Oximeter] Respiratory Rate Blood Pressure Blood Pressure [Ri ght Upper Arm] Pulse Oximetry 93 93 93 Oxygen Delivery Me thod 07/20/23 13:08 07/20/23 13:09 Temperature 100.6 F H Pulse Rate 96 Pulse Rate [Right Pulse Oximeter] Respiratory Rate Blood Pressure 135/85 Blood Pressure [Ri ght Upper Arm] Pulse Oximetry 95 Oxygen Delivery Me thod Course Course ED Course: Given fact that the patient had an unwitnessed fall x2 and did strike his head and and is on anticoagulation, we did do a head CT which was unremarkable. We also x-rayed the left shoulder given the amount tenderness she was having and that surprisingly was unremarkable. Because of the amount of tenderness he was having of the shoulder did go ahead proceed with a shoulder CT. This did not show any evidence of acute fracture. When I went to re-evaluate the patient who told me that his elbow was hurting quite a bit and a with palpation of the elbow he did express discomfort despite the fact that it was not uncomfortable when I initially palpated and examined the elbow. Because of this we did proceed with an elbow x-ray which was unremarkable. Patient then tells me that he is having bilateral hip pain pain comes and goes but has been present for years. He is requesting x-ray of his hips. At this time we discussed that he is not having new pain or worsening pain since his fall on Sunday so a hip x-ray at this time would not be warranted. He seemed comfortable with that. However, he did want to make sure that I knew that his knee was hurting more since falling and the requested an x-ray of the knee. X-ray of the knee was done and was unremarkable. BC did show a slightly elevated white cell count at 14.99. 79% neutrophils. Hemoglobin at 13.3 which appears to be around his baseline. Sodium was 134, potassium low at 2.9. He does appear to have a history of hypokalemia with his last potassium being 3.0. He did receive 20 mEq of IV potassium in 200 mL of normal saline while in the ED today. BUN and creatinine unremarkable, lactate 2.0. CRP slightly elevated at 2.4. UA showing 3+ blood, 25-50 rbc's. Triple swab negative. Blood and urine cultures pending. EKG, read by me, shows sinus rhythm with first-degree AV block and premature atrial complexes with a pulse of 89. Prolonged QT. Patient remained febrile during his stay, otherwise hemodynamically stable. I had a very long discussion with the patient and his about spending the night in the hospital for 1 night of observation. I do not feel comfortable sending him home with a fever of unknown origin and leukocytosis. Patient tells me that he is feeling fine he is requesting to be discharged at this time. Again stressed the importance of observation given his fever and leukocytosis, patient states that he absolutely will not stay in hospital. Vital Signs Vital signs: Initial Vital Signs Temperature 101.1 F H 07/20/23 08:16 Temperature Source Temporal Artery Scan 07/20/23 08:16 Pulse Rate 85 07/20/23 08:16 Pulse Rhythm Regular 07/20/23 08:16 Respiratory Rate 20 07/20/23 08:16 Blood Pressure 146/84 H 07/20/23 08:16 Blood Pressure Mean 104 07/20/23 08:16 Blood Pressure Position Semi-Fowlers 07/20/23 08:16 Pulse Oximetry 94 07/20/23 08:16 Oxygen Delivery Method Room Air 07/20/23 08:16 Vital Signs Temperature 101.1 F H 07/20/23 08:16 Pulse Rate 85 07/20/23 08:16 Respiratory Rate 20 07/20/23 08:16 Blood Pressure 146/84 H 07/20/23 08:16 Pulse Oximetry 94 07/20/23 08:16 Oxygen Delivery Method Room Air 07/20/23 08:16 Temperature 100.6 F H 07/20/23 13:09 Pulse Rate 96 07/20/23 13:08 Respiratory Rate 20 07/20/23 08:16 Blood Pressure 135/85 07/20/23 13:08 Pulse Oximetry 95 07/20/23 13:08 Oxygen Delivery Method Room Air 07/20/23 08:16 Medications Administered Medications: Discontinued Medications Generic Name Dose Route Start Last Admin Trade Name Sheri PRN Reason Stop Dose Admin Acetaminophen 650 mg 07/20/23 08:49 07/20/23 09:01 Acetaminophen 325 Mg Tablet PO 07/20/23 08:50 650 mg ONCE ONE Administration Potassium Chloride 10 meq in 100 mls @ 100 mls/hr 07/20/23 09:30 07/20/23 13:00 Potassium Chloride IVPB 07/20/23 11:59 Infused Q90M OPAL Infusion Morphine Sulfate 2 mg 07/20/23 08:44 07/20/23 09:03 Morphine 2 Mg/Ml Inj IVP 07/20/23 08:45 2 mg ONCE ONE Administration Medical Decision Making MDM Narrative Medical decision making narrative: 88-year-old male with multiple contusions status post fall, no evidence of fractures on multiple imaging modalities. Fever and leukocytosis of unclear etiology. At this time patient is refusing further treatment. Just prior to discharge patient's fever did go up to 102. I told him that going home at this time would be a very bad decision and he told me that that was my opinion. At this point I did have him sign out AMA as I do not feel uncomfortable sending him home with his comorbidities, fever of unclear etiology and leukocytosis. I did give a dose of Rocephin before discharge. Had long discussion again with him and his about returning to the ER for weakness, vomiting, increased fatigue and having a low threshold to do so. I would like for him to be re-evaluated on Sunday. Medical Records Medical records reviewed: Yes I reviewed the patient's medical records Lab Data Lab results reviewed: Yes I reviewed the patient's lab results Labs: Lab Results 07/20/23 07/20/23 Range/Units 08:45 09:01 WBC 14.99 H (4.50-11.00) K/uL RBC 4.49 (4.30-5.90) m/uL Hgb 13.3 L (13.5-17.5) gm/dL Hct 38.8 (37.0-53.0) % MCV 86 (80-100) fL MCH 30 (26-34) pg MCHC 34 (32-36) gm/dL RDW Coeff of Jayson 13.6 (11.5-15.5) % Plt Count 247 (140-440) K/uL Neut % (Auto) 79.1 H (42.0-72.0) % Lymph % (Auto) 6.9 L (20-44) % [place] % (Auto) 13.2 H (0.0-11.0) % Eos % (Auto) 0.2 (0.0-7.0) % Baso % (Auto) 0.2 (0.0-3.0) % Neut # (Auto) 11.90 H (1.7-7.0) K/uL Lymph # (Auto) 1.00 (0.90-2.90) K/uL [place] # (Auto) 2.00 H (0.00-0.90) K/UL Eos # (Auto) 0.00 (0.00-0.50) K/uL Baso # (Auto) 0.00 (0.00-0.30) K/uL Abs Immat Gran (auto) 0.10 (0.00-0.30) K/uL Imm/Tot Granulo (auto) 0.4 % Sodium 134 L (135-149) mmol/L Potassium 2.9 L* (3.6-5.1) mmol/L Chloride 98 (96-114) mmol/L Carbon Dioxide 26 (20-32) mmol/L Anion Gap 10 (7-15) mEq/L BUN 24 (7-30) mg/dL Creatinine 0.9 (0.5-1.5) mg/dL Estimated Creat Clear 48.66 Estimated GFR 83 ml/min Glucose 170 H (60-115) mg/dL Lactate 2.0 H (0.5-1.9) mmol/L Calcium 8.8 (8.4-10.6) mg/dL Total Bilirubin 1.0 (0.1-1.5) mg/dL Direct Bilirubin 0.2 (0.0-0.5) mg/dL AST 24 (12-35) U/L ALT 19 (4-50) U/L Alkaline Phosphatase 78 (40-150) U/L Troponin I 0.01 (0.01-0.04) ng/mL C-Reactive Protein 2.4 H (0.5-1.0) mg/dL NT-Pro-B Natriuret Pep 351 pg/mL Total Protein 7.4 (6.0-8.3) g/dL Albumin 4.0 (3.3-5.0) g/dL Urine Color Yellow (Yellow) Urine Appearance Clear (Clear) Urine pH 6.0 (5.0-8.5) Ur Specific [place] 1.025 (1.000-1.030) Urine Protein Negative (Negative) Urine Glucose (UA) Negative (Negative) Urine Ketones Negative (Negative) Urine Blood 3+ A (Negative) Urine Nitrite Negative (Negative) Urine Bilirubin Negative (Negative) Urine Urobilinogen 0.2 (0.2-1.0) Ur Leukocyte Esterase Negative (Negative) Urine RBC 25-50 A (0-2) Urine WBC 0-2 (0-5) Ur Squamous Epith Cells Few (None-Few) Urine Bacteria None (None) SARS-CoV-2 (PCR) Negative SARS-CoV-2 (Negative) Influenza Type A (PCR) Negative PCR FLU A (Negative) Influenza Type B (PCR) Negative PCR FLU B (Negative) RSV (PCR) Negative PCR RSV (Negative) Imaging Data Chest x-ray: Attestation: I have reviewed the pertinent imaging results. Radiologist's impression: Chest 2 views COMPARISON: 02/20/2019 FINDINGS: Reticulonodular densities are present within both lung bases. Cardiomegaly. Aortic tortuosity. No pleural effusion. No vertebral body compression fracture. IMPRESSION: CHF suspected. X-ray elbow: Attestation: I have reviewed the pertinent imaging results. Radiologist's impression: Indication: Injury and pain Technique: Left elbow 3 views Comparison: None Findings: Degenerative changes are present. There is no fracture. The alignment is normal. No joint effusion. Impression: No sign of acute injury. X-ray knee: Attestation: I have reviewed the pertinent imaging results. Radiologist's impression: Technique: Left knee 3 views Comparison: 02/05/2018 Findings: Chronic fullness of the prepatellar soft tissues. Patellofemoral spurring. No joint effusion. Vascular calcifications. Chondrocalcinosis. No fracture. Impression: No sign of acute injury or synovitis. X-ray shoulder: Attestation: I have reviewed the pertinent imaging results. Radiologist's impression: Technique: Left shoulder 3 views. Comparison: None. Findings: Type 2 acromion is present. Chronic ossicle adjacent to the lateral acromion. Narrowing and spurring at the acromioclavicular and glenohumeral joints. No acute fracture. Impression: No sign of acute injury. CT shoulder: Attestation: I have reviewed the pertinent imaging results. Radiologist's impression: Technique: Routine noncontrast CT left shoulder. Please note that all CT scans at this facility use dose modulation, iterative reconstruction, and/or weight-based dosing when appropriate to reduce radiation dose to as low as reasonably achievable. Comparison: X-rays 07/20/2023 Findings: There is no acute fracture. The alignment is normal. Degenerative joint disease. Intact visualized ribs. Sequela of granulomatous disease. No soft tissue mass. Joint effusion is present related to the degenerative joint disease. Impression: No sign of acute fracture. CT head: Attestation: I have reviewed the pertinent imaging results. Radiologist's impression: TECHNIQUE: A CT volumetric acquisition was performed of the brain without IV contrast. Please note that all CT scans at this facility use dose modulation, iterative reconstruction, and/or weight-based dosing when appropriate to reduce radiation dose to as low as reasonably achievable. FINDINGS: Generalized cortical atrophy is present. Vascular calcifications noted. No intracranial hemorrhage or mass effect. No midline shift or hydrocephalus. Patchy opacification of the ethmoid sinuses and maxillary sinuses. No fracture. IMPRESSION: No intracranial hemorrhage. ECG Data Attestation: I personally reviewed and interpreted this ECG as follows: Discharge Plan Discharge Clinical Impression: Acute shoulder pain, Fever, Leukocytosis, Left knee pain, Left elbow pain, Fall Patient Disposition: Left Against Medical Advice Condition: Unchanged Prescriptions: No Action multivitamin [Multiple Vitamins] Tablet 1 tab PO QAM gabapentin 100 mg capsule 200 mg PO QPM potassium chloride 10 mEq capsule, extended release 10 meq PO DAILY atorvastatin 20 mg tablet 20 mg PO HS metolazone 5 mg tablet 5 mg PO DAILY zolpidem 10 mg tablet 10 mg PO HS PRN warfarin 5 mg tablet See Rx Instructions PO DAILY Qty: 135 4RF Protocol: Dose Management Condition: Sunday Dose/Route: 7.5 mg Instruction: 1.5 x 5 mg tablets Condition: Sunday Dose/Route: 7.5 mg Instruction: 1.5 x 5 mg tablets Condition: Sunday Dose/Route: 7.5 mg Instruction: 1.5 x 5 mg tablets Condition: Sunday Dose/Route: 7.5 mg Instruction: 1.5 x 5 mg tablets Condition: Dose/Route: 5 mg Instruction: 1 x 5 mg tablet Condition: Sunday Dose/Route: 7.5 mg Instruction: 1.5 x 5 mg tablets Condition: Sunday Dose/Route: 7.5 mg Instruction: 1.5 x 5 mg tablets Protocol Text: Adjustment Start Date: 06/28/23 INR Value: 2.4 INR Date: 06/28/23 Recheck Date: 07/28/23 Rx Instructions: 5 mg QD except 7.5 mg QWed orally daily; [place] 5 MG, M 5 MG, Tu 5 MG, W 7.5 MG, Th 5 MG, F 5 MG, Sa 5 MG metoprolol succinate 50 mg tablet extended release 24 hr 50 mg PO DAILY Qty: 90 2RF amoxicillin 500 mg capsule 2,000 mg PO ONCE Qty: 8 1RF diltiazem HCl 240 mg capsule,extended release 24hr See Rx Instructions .ROUTE .COMPLEX Qty: 90 1RF Dose Instruction: TAKE ONE CAPSULE BY MOUTH ONCE DAILY Rx Instructions: TAKE ONE CAPSULE BY MOUTH ONCE DAILY Follow Up/Referrals: Rafa Barth MD [Primary Care Provider] - Stand Alone Forms: [employer] Info Instructions
--- NOTE | 2023-07-20 08:56 | CT_ITS ---
Final Report Patient: KRISTINE SIMPSON Facility:?[facility] Patient ID:?[id number] Site Patient ID:?[id number]. Site :?[id number] Study:?CT Head W/O-07/20/2023 9:39:55 AM Ordering Physician:CLAUDIA PARMAR Final Report: INDICATION: Fall COMPARISON: none TECHNIQUE: A CT volumetric acquisition was performed of the brain without IV contrast. Please note that all CT scans at this facility use dose modulation, iterative reconstruction, and/or weight-based dosing when appropriate to reduce radiation dose to as low as reasonably achievable. FINDINGS: Generalized cortical atrophy is present. Vascular calcifications noted. No intracranial hemorrhage or mass effect. No midline shift or hydrocephalus. Patchy opacification of the ethmoid sinuses and maxillary sinuses. No fracture. IMPRESSION: No intracranial hemorrhage. Please note that all CT scans at this facility use dose modulation, iterative reconstruction, and/or weight-based dosing when appropriate to reduce radiation dose to as low as reasonably achievable. Dictated by Jas Olvera MD @ 07/20/2023 10:22:46 AM (Electronic Signature)
[2023-07-20 08:57] LABS: Basophils Percent Auto 0.2 % (0.0-3.0); Eosinophils Percent Auto 0.2 % (0.0-7.0); Hematocrit 38.8 % (37.0-53.0); Hemoglobin* 13.3 gm/dL (13.5-17.5); Immature Granulocytes Pct Auto 0.4 %; Lymphocytes Percent Auto 6.9 % (20-44); Mean Corpuscular HGB Conc 34 gm/dL (32-36); Mean Corpuscular Hemoglobin 30 pg (26-34); Mean Corpuscular Volume 86 fL (80-100); Monocytes Percent Auto 13.2 % (0.0-11.0); Neutrophils Percent Auto 79.1 % (42.0-72.0); Platelet Count* 247 K/uL (140-440); RDW Coefficient of Variation % 13.6 % (11.5-15.5); Red Blood Count 4.49 m/uL (4.30-5.90); White Blood Count* 14.99 K/uL (4.50-11.00)
[2023-07-20 08:58] LABS: Slide Review Reflex No
[2023-07-20] MEDS: ACETAMINOPHEN 325 MG TABLET 650 MG PO (09:01)
[2023-07-20] MEDS: MORPHINE 2 MG/ML inj IVP (09:03)
[2023-07-20 09:06] LABS: Appearance Urine Clear (Clear); Bilirubin Urine Negative (Negative); Blood Urine 3+ (Negative); Color Urine Yellow (Yellow); Glucose Urine Negative (Negative); Ketones Urine Negative (Negative); Leukocyte Esterase Urine Negative (Negative); Nitrite Urine Negative (Negative); Protein Urine Negative (Negative); Specific Gravity Urine 1.025 (1.000-1.030); Urobilinogen Urine 0.2 (0.2-1.0)
[2023-07-20 09:15] LABS: Chloride* 98 mmol/L (96-114); Sodium* 134 mmol/L (135-149)
[2023-07-20 09:16] LABS: RBC Urine 25-50 (0-2)
[2023-07-20 09:17] LABS: Creatinine* 0.9 mg/dL (0.5-1.5); Est. Creatinine Clearance* 48.66; Estimated Glomerular Filt Rate 83 ml/min
[2023-07-20 09:17] LABS: Squamous Epithelial Cell Urine Few (None-Few); WBC Urine 0-2 (0-5)
[2023-07-20 09:18] LABS: Alanine Aminotransferase* 19 U/L (4-50); Alkaline Phosphatase* 78 U/L (40-150); Anion Gap 10 mEq/L (7-15); Aspartate Amino Transferase* 24 U/L (12-35); Bilirubin Direct* 0.2 mg/dL (0.0-0.5); Blood Urea Nitrogen* 24 mg/dL (7-30); Carbon Dioxide* 26 mmol/L (20-32); Total Protein* 7.4 g/dL (6.0-8.3)
[2023-07-20 09:19] LABS: Calcium* 8.8 mg/dL (8.4-10.6); Glucose* 170 mg/dL (60-115)
[2023-07-20 09:21] LABS: C Reactive Protein* 2.4 mg/dL (0.5-1.0)
[2023-07-20 09:22] LABS: Potassium* 2.9 mmol/L (3.6-5.1)
--- NOTE | 2023-07-20 09:23 | ED.NURSE ---
lab called with critical K+2.9, dr. waldrop updated
[2023-07-20 09:28] LABS: PCR FLU A Negative PCR FLU A (Negative); PCR FLU B Negative PCR FLU B (Negative); PCR RSV Negative PCR RSV (Negative); SARS PCR* Negative SARS-CoV-2 (Negative)
[2023-07-20 09:30] LABS: Troponin I* 0.01 ng/mL (0.01-0.04)
[2023-07-20 09:34] LABS: NT Pro B Type NatriureticPept* 351 pg/mL
[2023-07-20] MEDS: POTASSIUM CHLORIDE 10 MEQ/100 ML PIGGYBACK 100 MEQ IVPB ×2 (09:51→11:45)
--- NOTE | 2023-07-20 10:52 | CT_ITS ---
Final Report Patient: KRISTINE SIMPSON Facility:?[facility] Patient ID:?[id number] Site Patient ID:?[id number]. Site :?[id number] Study:?CT Extremity Left SHOULDER W/O-07/20/2023 11:48:11 AM Ordering Physician:CLAUDIA PARMAR Final Report: Indication: Fall, pain. Technique: Routine noncontrast CT left shoulder. Please note that all CT scans at this facility use dose modulation, iterative reconstruction, and/or weight-based dosing when appropriate to reduce radiation dose to as low as reasonably achievable. Comparison: X-rays 07/20/2023 Findings: There is no acute fracture. The alignment is normal. Degenerative joint disease. Intact visualized ribs. Sequela of granulomatous disease. No soft tissue mass. Joint effusion is present related to the degenerative joint disease. Impression: No sign of acute fracture. Please note that all CT scans at this facility use dose modulation, iterative reconstruction, and/or weight-based dosing when appropriate to reduce radiation dose to as low as reasonably achievable. Dictated by Jas Olvera MD @ 07/20/2023 2:19:39 PM (Electronic Signatur
--- NOTE | 2023-07-20 10:52 | XR_ITS ---
Final Report Patient: KRISTINE SIMPSON Facility:?[facility] Patient ID:?[id number] Site Patient ID:?[id number]. Site :?[id number] Study:?XRay Extremity Left 3V ELBOW-07/20/2023 11:45:29 AM Ordering Physician:?DR. GANDHI Final Report: Indication: Injury and pain Technique: Left elbow 3 views Comparison: None Findings: Degenerative changes are present. There is no fracture. The alignment is normal. No joint effusion. Impression: No sign of acute injury. Dictated by Jas Olvera MD @ 07/20/2023 12:01:58 PM (Electronic Signature)
--- NOTE | 2023-07-20 11:10 | XR_ITS ---
Final Report Patient: KRISTINE SIMPSON Facility:?[facility] Patient ID:?[id number] Site Patient ID:?[id number]. Site :?[id number] Study:?XRay Extremity Left 3V KNEE-07/20/2023 11:42:52 AM Ordering Physician:?DR. GANDHI Final Report: Indication: Fall, pain Technique: Left knee 3 views Comparison: 02/05/2018 Findings: Chronic fullness of the prepatellar soft tissues. Patellofemoral spurring. No joint effusion. Vascular calcifications. Chondrocalcinosis. No fracture. Impression: No sign of acute injury or synovitis. Dictated by Jas Olvera MD @ 07/20/2023 12:01:01 PM (Electronic Signature)
--- NOTE | 2023-07-20 14:56 | ED.NURSE ---
Pt wanted to leave against medical advise, notified the pt of the risks involved. Temporal temperature of 102F taken on pt, pt refused oral temp at the time.
--- NOTE | 2023-07-20 15:03 | ED.NURSE ---
Pt left without getting antibiotic shot. aware, wanted pt to be called to come back to receive antibiotic. Left voicemail with pt phone number on file, 's phone number not working at this time.
[2023-07-20] MEDS: cefTRIAXone 1 GM VIAL IM (16:44)
== END 2023-07-20 16:59 | disposition left against medical advice (07) ==
PROVIDERS: Emergency Provider Family Medicine; PCP Family Medicine
DX: Z53.29 Procedure and treatment not carried out because of patient's decision for other reasons (principal)
CPT/HCPCS: 36415; 70450; 71046; 73030; 73080; 73200; 73562; 80048; 80076; 81001; 83605; 83880; 84484; 85025; 86140; 87040; 87086; 87631; 93005; 94761; 99285; A9270; J0696; J2270; J3480

== ENCOUNTER 2023-07-20 17:00 | Inpatient (IN) | payer MEDICARE, BC, SELFPAY ==
[2023-07-20] VITALS (7 sets, daily range): BP systolic 122–138; BP diastolic 80–97; PULSE 83–96; RESP 16–18; TEMP 37–37.3; O2SAT 92–96; BMI 37.6; BMI 39.7
[2023-07-20] MEDS: cefTRIAXone 500 MG in 0.9 % SODIUM CHLORIDE Mini-bag 100 ML 200 MG IVPB (17:28)
--- OUTSIDE RECORDS SUMMARY | 2023-07-20 17:40 | XMS_ITS | Clinical Summary ---
Author Name Unknown Organization [employer] [facility] Address [place], [place] [address] Care Team Providers Care Geoscience Technician Name Role Phone Aditi Jackson MD Primary [...] dose: 4000mg in 24 hrs. 0 Active Uexvd-7-JCC-EPA-F anat Oil 1,000 mg (120 mg-180 mg) [...] mouth once daily. 0 04/13/2022 Active vit C,K-Kz-ppouw-lute in-zeaxan (PreserVision AREDS-2) capsule Take 1 Capsule [...] Name Administration Dates Next Due COVID-19 vaccine ([facility] 30mcg/0.3mL) PF, MDV 03/18/2021,08/14/2020,07/24/2020 Influenza, High-dose Inactivated [...] T Respiratory Rate 16 04/20/2017 9:20 AM SOUND CUTTER Oxygen Saturation 96% 08/31/2022 1:57 PM CDT Inhaled Oxygen Concentration - - Weight 118.4 kg (261 lb) 08/31/2022 1:57 PM CDT Height 169.5 cm (5' 6.73) 08/11/2022 9:12 AM CS T Body Mass Index 41.21 08/11/2022 9:12 AM SOUND CUTTER Plan of Treatment Health Maintenance Due Date [...] Completed 01/24/2012 Medical Devices Implanted Type Area Legal Paraprofessional Device Identifier Shelf Expiration Date Model / Serial / Lot Vincent Lmbr 70x5.5mm Tsrh 3d Cvd Titid - [id number] Implanted:Qty: 2 on 04/17/2017 by Carlos A Del Castillo MD at [facility] Spine Implants N/A: Lumbar Vertebrae Medtronic Spine/Ortho [id number] / / Bone Matrix 6cc Manati Dbf Putty Db - [id number] Implanted:Qty: 1 on 04/17/2017 by Carlos A Del Castillo MD at [facility] N/A: Lumbar Vertebrae Medtronic Spine/Ortho 01/15/2019 [id number] / / [id number] Cnnctr Lmbr Tsrh 3dx Offsettitnm - [id number] Implanted:Qty: 1 on 04/17/2017 by Carlos A Del Castillo MD at [facility] N/A: Lumbar Vertebrae Medtronic Spine/Ortho [id number] / / Bone Matrix 6cc Manati Dbf Putty Dbm - [id number] Implanted:Qty: 1 on 04/17/2017 by Carlos A Del Castillo MD at [facility] N/A: Lumbar Vertebrae Medtronic Spine/Ortho 01/15/2019 [id number] / / [id number] Bone 1-4mm 60cc Medtronic Chips Canclls Frozen - [id number] Implanted:Qty: 1 on 04/17/2017 by Carlos A Del Castillo MD at [facility] N/A: Lumbar Vertebrae Medtronic Spine/Ortho 06/17/2021 [id number] / [id number] / [id number] Spacer Lmbr 61a09fi Capstone Tlif Titnm Coating - [id number] Implanted:Qty: 1 on 04/17/2017 by Carlos A Del Castillo MD at [facility] N/A: Lumbar Vertebrae Medtronic Spine/Ortho 09/24/2023 [id number] / / [id number] Spacer Lmbr 16h25fn Capstone Tlif Titnm Coating - [id number] Implanted:Qty: 1 on 04/17/2017 by Carlos A Del Castillo MD at [facility] N/A: Lumbar Vertebrae Medtronic Spine/Ortho 08/16/2024 [id number] / / [id number] Screw Lmbr Post 7.5x50mm Tsrh 3dx Og Thin Va - [id number] Implanted:Qty: 3 on 04/17/2017 by Carlos A Del Castillo MD at [facility] N/A: Lumbar Vertebrae Medtronic Spine/Ortho [id number] # / / Screw Lmbr Post 7.5x45mm Tsrh 3dx Og Thin Va - [id number] Implanted:Qty: 3 on 04/17/2017 by Carlos A Del Castillo MD at [facility] N/A: Lumbar Vertebrae Medtronic Spine/Ortho [id number] # / / Set Screw Lmbr Ts 3dx - [id number] Implanted:Qty: 6 on 04/17/2017 by Carlos A Del Castillo MD at [facility] N/A: Lumbar Vertebrae Medtronic Spine/Ortho [id number]# / / Cnnctr Lmbr Sm Tsrh 3dx Offsettitnm - [id number] Implanted:Qty: 5 on 04/17/2017 by Carlos A Del Castillo MD at [facility] N/A: Lumbar Vertebrae Medtronic Spine/Ortho [id number] / / Additional Health Concerns Infection Onset [...] Code Status Discussion: Not Discussed Care Teams Geoscience Technician Relationship Specialty Start Date End Date Aditi Jackson MD [address] [place] [address] PCP - General Family Practice 09/19/22
--- NOTE | 2023-07-20 18:41 | ED_ITS ---
HPI - Weakness General Date Seen: 07/20/23 Chief complaint: Weakness Stated complaint: Fell this AM Time Seen by Provider: 07/20/23 17:34 Source: patient and family Mode of arrival: ambulatory Limitations: no limitations History of Present Illness HPI Narrative: Patient is gentleman, was brought in by his son he was seen earlier today, is suggested for admission, or at least antibiotics, he went back home, signing the AMA form. But then came back with this son. He has been basically having weakness today, with 1 fall and injury to his left shoulder. He had no loss of consciousness, with this denies any neck pain at all, and shortness of breath or other issues, he did have a fever however when he was seen before, I suspect that this is the reason for his weakness. He does have a history of swelling in his legs. I spoke to the doctor who saw him before, she did have a reason for his fever, and suggested that we admit him to the hospital. Other workup included leukocytosis and also low potassium Past medical history significant for hearing loss obesity, hyperlipidemia hypertension atrial fibrillation neuropathy spinal stenosis, BPH, ascending aortic aneurysm, macular degeneration tenderness sleep apnea, history of sciatica history of non STEMI, Peter's esophagus and on anticoagulation. Related Data Home Medications Medication Instructions Recorded Confirmed multivitamin (Multiple Vitamins 1 tab PO QAM 12/20/21 07/20/23 tablet) atorvastatin 20 mg tablet 20 mg PO HS 07/20/23 07/20/23 gabapentin 100 mg capsule 200 mg PO QPM 07/20/23 07/20/23 metolazone 5 mg tablet 5 mg PO DAILY 07/20/23 07/20/23 potassium chloride 10 mEq 10 meq PO DAILY 07/20/23 07/20/23 capsule,extended release zolpidem 10 mg tablet 10 mg PO HS PRN 07/20/23 07/20/23 Previous Rx's Medication Instructions Recorded warfarin 5 mg tablet See Rx Instructions PO DAILY #135 11/07/22 tabs amoxicillin 500 mg capsule 2,000 mg (4 x 500 mg) PO ONCE #8 12/21/22 caps metoprolol succinate 50 mg 50 mg PO DAILY #90 tabs 12/21/22 tablet,extended release 24 hr diltiazem HCl 240 mg See Rx Instructions .Route 07/10/23 capsule,extended release 24 hr .COMPLEX #90 caps Allergies Allergy/AdvReac Type Severity Reaction Status Date / Time No Known Allergies Allergy Verified 07/20/23 08:21 Review of Systems Status of ROS: Reports: 10 or more systems reviewed and unremarkable except as noted in History and below [facility] Medical History Syncope ?R55 - Syncope and collapse (ICD-10) Surgical History Status post transurethral resection of prostate ?Z90.79 - Acquired absence of other genital organ(s) (ICD-10) Status post tonsillectomy and adenoidectomy ?Z90.89 - Acquired absence of other organs (ICD-10) Status post arthroscopy of right knee (01/01/09) ?Z98.890 - Other specified postprocedural states (ICD-10) History of fusion of lumbar spine ?Z98.1 - Arthrodesis status (ICD-10) History of blepharoplasty ?Z98.890 - Other specified postprocedural states (ICD-10) History of arthroplasty of left hip ?Z98.890 - Other specified postprocedural states (ICD-10) Social History What is your current living situation?: I presently have a place to live Problems where you live: no known problems In the past 12 months, utilities in danger of being shut off: no In past 12 months, lack of transportation kept you from medical appts, meetings, work, or getting things needed for daily living: no In the past 12 mos, have been you worried that your food would run out before you had money to buy more?: never true In the past 12 mos, the food you bought just didn't last and you didn't have money to buy more?: never true Smoking Status: Never smoker Do you use any of these nicotine containing products: None How often do you have a drink containing alcohol: never How often do you have six or more drinks on one occasion: Never AUDIT-C Alcohol total score: 0 Non-prescribed substance use: denies use How often does anyone, including family, friends and others, physically hurt you : never How often does anyone, including family, friends and others, insult or talk down to you: never How often does anyone, including family, friends and others, threaten you with harm: never How often does anyone, including family, friends and others, scream or curse at you: never Little interest or pleasure in doing things: more than half the days Feeling down, depressed, or hopeless: several days service: No Exam Narrative: Exam Narrative: I am seeing him in a stabilization room 2, he is appears to be in no apparent distress speaking to me normally, he really has a hard time lifting his left shoulder at all, either internal external rotation, or flexion extension. 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 Finger abduction is normal his neck is full range of motion with no tenderness to palpation, over the C-spine, his head shows no evidence of any injury, his chest is good air entry bilaterally. His heart sounds appear normal, and regular, his abdomen is soft, there is no guarding, no hepatosplenomegaly, obese, nontender, above bruising in the right upper quadrant is notable. Extremities all have 3 to 4+ edema, right greater than left which she says is common for him, his cap refill is normal, he is able to lift both legs up, his back appears nontender over his L-spine T-spine and C-spine, no evidence of bruising is noted. Previous x-rays reports are normal noted. Const: Vital Signs, click to edit/add: Vital Signs - 24 hr 07/20/23 17:06 07/20/23 17:44 Temperature 99.2 F Pulse Rate [Right Pulse Oximeter] 96 Respiratory Rate 18 Blood Pressure [Ri ght Upper Arm] 122/80 Pulse Oximetry 96 94 Oxygen Delivery Me thod Room Air Documenting provider has reviewed patient's vital signs: yes Course Course ED Course: I spoke to Dr. Mcmahan from hospital medicine she agreed to [facility] I spoke with the son who is here also. He does have a history of sepsis and use a walker to get around in given the fact that I do not think he can uses walker with his left shoulder. We should probably admit him at this point. I am reassured by no bony abnormality seen on his shoulder, but wonder about the of the rotator cuff in the biceps Vital Signs Vital signs: Initial Vital Signs Temperature 99.2 F 07/20/23 17:06 Temperature Source Oral 07/20/23 17:06 Pulse Rate 96 07/20/23 17:06 Pulse Rhythm Regular 07/20/23 17:06 Respiratory Rate 18 07/20/23 17:06 Blood Pressure 122/80 07/20/23 17:06 Blood Pressure Mean 94 07/20/23 17:06 Blood Pressure Position Sitting 07/20/23 17:06 Pulse Oximetry 96 07/20/23 17:06 Oxygen Delivery Method Room Air 07/20/23 17:06 Vital Signs Temperature 99.2 F 07/20/23 17:06 Pulse Rate 96 07/20/23 17:06 Respiratory Rate 18 07/20/23 17:06 Blood Pressure 122/80 07/20/23 17:06 Pulse Oximetry 96 07/20/23 17:06 Oxygen Delivery Method Room Air 07/20/23 17:06 Temperature 99.2 F 07/20/23 17:06 Pulse Rate 96 07/20/23 17:06 Respiratory Rate 18 07/20/23 17:06 Blood Pressure 122/80 07/20/23 17:06 Pulse Oximetry 94 07/20/23 17:44 Oxygen Delivery Method Room Air 07/20/23 17:06 Medications Administered Medications: Discontinued Medications Generic Name Dose Route Start Last Admin Trade Name Freq PRN Reason Stop Dose Admin Ceftriaxone Sodium 1 gm/ 100 mls @ 200 mls/hr 07/20/23 17:42 07/20/23 18:05 Sodium Chloride IVPB 07/20/23 17:43 Not Given ONCE ONE Ceftriaxone Sodium 500 mg/ 100 mls @ 200 mls/hr 07/20/23 17:49 07/20/23 17:28 Sodium Chloride IVPB 07/20/23 17:50 200 mls/hr ONCE ONE Administration MDM - Weakness MDM Narrative Medical decision making narrative: There was an order for Rocephin in the nurse before a some gave him 1 g IM, I think giving him 500 mg IV would be also supplemental with this, so we will start this, previously they had done blood cultures, urine cultures, and also a lactate which was borderline at 2.0. He did have a lot of red cells in his urine and this could be a cause given his trying to pee all the time. I think CT treatment with antibiotic is appropriate. Life-threatening differential diagnosis considered include stroke, coronary artery disease, pneumonia, and heart failure. Other differential diagnosis include but are not limited to electrolyte imbalances, anemia, medication reactions, and urinary tract infection Medical Records Attestation: I reviewed the patient's medical records. Discharge Plan Discharge Clinical Impression: Weakness, Fever, Leukocytosis, Fall, Acute pain of left shoulder, Acute hypokalemia Patient Disposition: Admitted As Observation Prescriptions: No Action multivitamin [Multiple Vitamins] Tablet 1 tab PO QAM gabapentin 100 mg capsule 200 mg PO QPM potassium chloride 10 mEq capsule, extended release 10 meq PO DAILY atorvastatin 20 mg tablet 20 mg PO HS metolazone 5 mg tablet 5 mg PO DAILY zolpidem 10 mg tablet 10 mg PO HS PRN warfarin 5 mg tablet See Rx Instructions PO DAILY Qty: 135 4RF Protocol: Dose Management Condition: Sunday Dose/Route: 7.5 mg Instruction: 1.5 x 5 mg tablets Condition: Sunday Dose/Route: 7.5 mg Instruction: 1.5 x 5 mg tablets Condition: Sunday Dose/Route: 7.5 mg Instruction: 1.5 x 5 mg tablets Condition: Sunday Dose/Route: 7.5 mg Instruction: 1.5 x 5 mg tablets Condition: Dose/Route: 5 mg Instruction: 1 x 5 mg tablet Condition: Sunday Dose/Route: 7.5 mg Instruction: 1.5 x 5 mg tablets Condition: Sunday Dose/Route: 7.5 mg Instruction: 1.5 x 5 mg tablets Protocol Text: Adjustment Start Date: 06/28/23 INR Value: 2.4 INR Date: 06/28/23 Recheck Date: 07/28/23 Rx Instructions: 5 mg QD except 7.5 mg QWed orally daily; Greene 5 MG, M 5 MG, Tu 5 MG, W 7.5 MG, Th 5 MG, F 5 MG, Sa 5 MG metoprolol succinate 50 mg tablet extended release 24 hr 50 mg PO DAILY Qty: 90 2RF amoxicillin 500 mg capsule 2,000 mg PO ONCE Qty: 8 1RF diltiazem HCl 240 mg capsule,extended release 24hr See Rx Instructions .ROUTE .COMPLEX Qty: 90 1RF Dose Instruction: TAKE ONE CAPSULE BY MOUTH ONCE DAILY Rx Instructions: TAKE ONE CAPSULE BY MOUTH ONCE DAILY Follow Up/Referrals: Rafa Barth MD [Primary Care Provider] -
--- NOTE | 2023-07-20 18:47 | ED.NURSE ---
report given to grace VALENCIA
[2023-07-20 20:44] LABS: Lactate* 1.9 mmol/L (0.5-1.9)
[2023-07-20 21:05] LABS: INR 3.23 (0.91-1.10); Prothrombin Time 35.5 Seconds
[2023-07-20 21:57] LABS: Procalcitonin* 0.56 ng/mL (<0.50)
[2023-07-20] MEDS: OXYCODONE 5 MG TABLET 2.5 MG PO (22:00)
[2023-07-20] MEDS: SODIUM CHLORIDE 0.9 % (FLUSH) 10 ML SYRINGE 5 ML IVF (22:01)
--- NOTE | 2023-07-20 22:42 | PC.NURSE ---
End of shift: Patient alert and oriented to self and birthdate, intermittent confusion noted. Patient up with assist x 1 with walker, tolerating activity well. Reports pain to left shoulder rating at 8/10, pain does radiate down to hand with movement. Occasional urinary and fecal incontinence reported, patient has remained continent this shift. Denies any chest pain or shortness of breath.
[2023-07-20] MEDS: ACETAMINOPHEN 325 MG TABLET PO (23:15)
[2023-07-21] VITALS (10 sets, daily range): BP systolic 115–146; BP diastolic 61–103; PULSE 76–96; RESP 18–20; TEMP 36.5–38.2; O2SAT 94–95
--- NOTE | 2023-07-21 00:45 | P.IMHP_ITS ---
Hospitalist- H&P: HPI History of Present Illness Time Seen by Provider: 20:15 Date Seen: 07/20/23 Chief complaint: Fell this AM Narrative: Wilber Tsang is a 88 year old male who has had several falls recently came in this morning for a fever and left shoulder pain. Wilber is a poor historian, but was able to give me some history on and off which I was then able to verify over the phone with his , Rebecca. He had a fall about a month ago from which he did not sustain any injuries. He then fell again about 2 days ago on to a wagon. Since then he has been complaining of left shoulder pain. His tells me that she checked his temperature this morning and it was mildly elevated at 100.5. Really got to the emergency room his temperature was elevated around 101. He was offered an observation admission and left against medical advice. He returned to the emergency room shortly after leaving as his family was worried about him going home. He denies any recent illnesses, coughs, colds, shortness of breath, or pain in the chest other than this left shoulder pain. Review of Systems Status of ROS: Reports: 10 or more systems reviewed and unremarkable except as noted in History and below [facility] Medical History (Updated 07/21/23 @ 01:06 by Rebecca Mcmahan MD) Hyperlipidemia ?E78.5 - Hyperlipidemia, unspecified (ICD-10) Neuropathy ?G62.9 - Polyneuropathy, unspecified (ICD-10) Heterotopic ossification of bone ?M89.8X9 - Other specified disorders of bone, unspecified site (ICD-10) Basal cell carcinoma (BCC) ?C44.91 - Basal cell carcinoma of skin, unspecified (ICD-10) Edema ?R60.9 - Edema, unspecified (ICD-10) 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/13) ?H93.13 - Tinnitus, bilateral (ICD-10) Spinal stenosis of lumbar region without neurogenic claudication (04/17/17) ?M48.061 - Spinal stenosis, lumbar region without neurogenic claudication (ICD-10) Sleep apnea (01/01/09) ?G47.30 - Sleep apnea, unspecified (ICD-10) Sensorineural hearing loss (SNHL) of both ears (07/29/13) ?H90.3 - Sensorineural hearing loss, bilateral (ICD-10) Seborrheic keratosis ?L82.1 - Other seborrheic keratosis (ICD-10) Seborrheic dermatitis ?L21.9 - Seborrheic dermatitis, unspecified (ICD-10) Sciatica ?M54.30 - Sciatica, unspecified side (ICD-10) Pulmonary nodules ?R91.8 - Other nonspecific abnormal finding of lung field (ICD-10) Non-ST elevation myocardial infarction (NSTEMI) ?I21.4 - Non-ST elevation (NSTEMI) myocardial infarction (ICD-10) Methicillin resistant Staphylococcus aureus culture positive (12/2014) ?Z22.322 - Carrier or suspected carrier of Methicillin resistant Staphylococcus aureus (ICD-10) detention current use of anticoagulant therapy ?Z79.01 - detention (current) use of anticoagulants (ICD-10) Insomnia, unspecified (01/01/09) ?G47.00 - Insomnia, unspecified (ICD-10) Hypertension (01/01/09) ?I10 - Essential (primary) hypertension (ICD-10) Erysipelas ?A46 - Erysipelas (ICD-10) Diverticulosis (03/02/10) ?K57.90 - Diverticulosis of intestine, part unspecified, without perforation or abscess without bleeding (ICD-10) Colon polyp (01/01/09) ?K63.5 - Polyp of colon (ICD-10) BPH (benign prostatic hyperplasia) (01/01/09) ?N40.0 - Benign prostatic hyperplasia without lower urinary tract symptoms (ICD-10) 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) ?K22.70 - Peter's esophagus without dysplasia (ICD-10) Atrial fibrillation ?I48.91 - Unspecified atrial fibrillation (ICD-10) Ascending aortic aneurysm (09/19/10) ?I71.2 - Thoracic aortic aneurysm, without rupture (ICD-10) Anticoagulation goal of INR 2 to 3 ?Z51.81 - Encounter for therapeutic drug level monitoring (ICD-10) ?Z79.01 - detention (current) use of anticoagulants (ICD-10) Syncope ?R55 - Syncope and collapse (ICD-10) Surgical History Status post transurethral resection of prostate ?Z90.79 - Acquired absence of other genital organ(s) (ICD-10) Status post tonsillectomy and adenoidectomy ?Z90.89 - Acquired absence of other organs (ICD-10) Status post arthroscopy of right knee (01/01/09) ?Z98.890 - Other specified postprocedural states (ICD-10) History of fusion of lumbar spine ?Z98.1 - Arthrodesis status (ICD-10) History of blepharoplasty ?Z98.890 - Other specified postprocedural states (ICD-10) History of arthroplasty of left hip ?Z98.890 - Other specified postprocedural states (ICD-10) Social History (Updated 07/21/23 @ 00:49 by Rebecca Mcmahan MD) Narrative: Lives independently with his , Rebecca. Wishes to be full code. What is your current living situation?: I presently have a place to live Problems where you live: no known problems Problems where you live details: NA In the past 12 months, utilities in danger of being shut off: no In past 12 months, lack of transportation kept you from medical appts, meetings, work, or getting things needed for daily living: no In the past 12 mos, have been you worried that your food would run out before you had money to buy more?: never true In the past 12 mos, the food you bought just didn't last and you didn't have money to buy more?: never true Highest level of school completed/degree received: high school graduate Smoking Status: Former smoker Do you use any of these nicotine containing products: None Second hand tobacco smoke exposure: No How often do you have a drink containing alcohol: monthly or less How many standard drinks containing alcohol do you have on a typical day: 1 or 2 How often do you have six or more drinks on one occasion: Never AUDIT-C Alcohol total score: 1 Non-prescribed substance use: denies use Caffeine: Yes How often does anyone, including family, friends and others, physically hurt you : never How often does anyone, including family, friends and others, insult or talk down to you: never How often does anyone, including family, friends and others, threaten you with harm: never How often does anyone, including family, friends and others, scream or curse at you: never Little interest or pleasure in doing things: more than half the days Feeling down, depressed, or hopeless: several days service: Yes Meds Home Medications and Allergies Home Medications Medication Instructions Recorded Confirmed Type multivitamin (Multiple Vitamins 1 tab PO QAM 12/20/21 07/20/23 History tablet) ascorbic acid (vitamin C) 250 mg 500 mg PO DAILY 07/20/23 07/20/23 History tablet (Vitamin C) cholecalciferol (vitamin D3) 25 25 mcg PO DAILY 07/20/23 07/20/23 History mcg (1,000 unit) capsule gabapentin 100 mg capsule 200 mg PO QPM PRN 07/20/23 07/20/23 History metolazone 5 mg tablet 5 mg PO DAILY 07/20/23 07/20/23 History potassium chloride 10 mEq 10 meq PO DAILY 07/20/23 07/20/23 History capsule,extended release Allergies Allergy/AdvReac Type Severity Reaction Status Date / Time No Known Allergies Allergy Verified 07/20/23 08:21 Exam Narrative: Exam Narrative: General: No acute distress. Awake, alert, oriented x3, although this fluctuates. At times he did not remember that he had fallen or could not remember when he had fallen. HEENT: Normocephalic atraumatic, pupils equally round and reactive to light and accommodation. Oropharynx clear. Mucous membranes are moist. No cervical lymphadenopathy, thyromegaly or carotid bruits. No JVD. Cardiovascular: Irregularly regular. No murmurs, gallops, or rubs. Chest: No increased work of breathing. Clear to auscultation bilaterally. No crackles or wheezes. Abdomen: Bowel sounds present. Soft, nondistended, nontender. No hepatosplenomegaly or masses. Extremities: 3+ pitting edema of both lower extremities to the thighs, no cyanosis or clubbing. Skin: Large ecchymosis over the the right upper quadrant of the abdomen and multiple coalescing ecchymosis over the lower anterior left knee. No jaundice, no pallor, no rashes. Neuro: There are no focal deficits. Romberg is negative. Cranial nerves 2-12 are intact. Extraocular movements are full. No nystagmus. No facial asymmetry. Tongue is midline. Peripheral vision and vision are grossly intact. Strength is 5/5 in all 4 extremities. DTRs intact and symmetric. Light touch sensation is intact in face body and extremities. Coordination is intact in upper and lower extremities. Const: Vital Signs, click to edit/add: Vital Signs - 24 hr 07/20/23 17:06 07/20/23 17:44 07/20/23 19:25 Temperature 99.2 F 98.6 F Pulse Rate Pulse Rate [Right Pulse Oximeter] 96 89 Respiratory Rate 18 16 Blood Pressure [Ri ght Arm] 124/97 H Blood Pressure [Ri ght Upper Arm] 122/80 Pulse Oximetry 96 94 96 Oxygen Delivery Me thod Room Air Room Air 07/20/23 19:25 07/20/23 23:00 07/20/23 23:11 Temperature 99.0 F Pulse Rate 83 Pulse Rate [Right Pulse Oximeter] 83 Respiratory Rate 16 18 Blood Pressure [Ri ght Arm] 138/80 Blood Pressure [Ri ght Upper Arm] Pulse Oximetry 96 92 Oxygen Delivery Me thod Room Air Room Air 07/20/23 23:15 07/20/23 23:20 Temperature 99.0 F Pulse Rate Pulse Rate [Right Pulse Oximeter] Respiratory Rate 18 Blood Pressure [Ri ght Arm] Blood Pressure [Ri ght Upper Arm] Pulse Oximetry 92 Oxygen Delivery Me thod Room Air Hospitalist - H&P: Result Labs Labs: 07/20/2023 EKG: Sinus rhythm with first-degree AV block with premature atrial complexes. 89 beats per minute. Nonspecific ST abnormality. Prolonged QT. Facility:?[facility] Patient ID:?[id number] Site Patient ID:?[id number]. Site :?1935 Study:?CT Head W/O-07/20/2023 9:39:55 AM Ordering Physician:?CLAUDIA GANDHI Final Report: INDICATION: Fall COMPARISON: none TECHNIQUE: A CT volumetric acquisition was performed of the brain without IV contrast. Please note that all CT scans at this facility use dose modulation, iterative reconstruction, and/or weight-based dosing when appropriate to reduce radiation dose to as low as reasonably achievable. FINDINGS: Generalized cortical atrophy is present. Vascular calcifications noted. No intracranial hemorrhage or mass effect. No midline shift or hydrocephalus. Patchy opacification of the ethmoid sinuses and maxillary sinuses. No fracture. IMPRESSION: No intracranial hemorrhage. Please note that all CT scans at this facility use dose modulation, iterative reconstruction, and/or weight-based dosing when appropriate to reduce radiation dose to as low as reasonably achievable. Dictated by Jas Olvera MD @ 07/20/2023 10:22:46 AM (Electronic Signature) Facility: [facility] Site . Site : 1935 Study: XRay Shoulder Left 3 VIEWS-07/20/2023 9:51:35 AM Ordering Physician: HIRAM Final Report: Indication: Injury, pain Technique: Left shoulder 3 views. Comparison: None. Findings: Type 2 acromion is present. Chronic ossicle adjacent to the lateral acromion. Narrowing and spurring at the acromioclavicular and glenohumeral joints. No acute fracture. Impression: No sign of acute injury. Dictated by Jas Olvera MD @ 07/20/2023 10:37:27 AM (Electronic Signature) Facility: [facility] Site . Site : 1935 Study: XRay Chest 2 VIEWS-07/20/2023 9:54:13 AM Ordering Physician: HIRAM Final Report: INDICATION: Shortness of breath TECHNIQUE: Chest 2 views COMPARISON: 02/20/2019 FINDINGS: Reticulonodular densities are present within both lung bases. Cardiomegaly. Aortic tortuosity. No pleural effusion. No vertebral body compression fracture. IMPRESSION: CHF suspected. Dictated by Jas Olvera MD @ 07/20/2023 10:34:36 AM (Electronic Signature) Facility: [facility] Site . Site : 1935 Study: XRay Extremity Left 3V KNEE-07/20/2023 11:42:52 AM Ordering Physician: DR. GANDHI Final Report: Indication: Fall, pain Technique: Left knee 3 views Comparison: 02/05/2018 Findings: Chronic fullness of the prepatellar soft tissues. Patellofemoral spurring. No joint effusion. Vascular calcifications. Chondrocalcinosis. No fracture. Impression: No sign of acute injury or synovitis. Dictated by Jas Olvera MD @ 07/20/2023 12:01:01 PM (Electronic Signature) Facility: [facility] Site . Site : 1935 Study: XRay Extremity Left 3V ELBOW-07/20/2023 11:45:29 AM Ordering Physician: DR. GANDHI Final Report: Indication: Injury and pain Technique: Left elbow 3 views Comparison: None Findings: Degenerative changes are present. There is no fracture. The alignment is normal. No joint effusion. Impression: No sign of acute injury. Dictated by Jas Olvera MD @ 07/20/2023 12:01:58 PM (Electronic Signature) Facility:?[facility] Patient ID:?[id number] Site Patient ID:?[id number]. Site :?1935 Study:?CT Extremity Left SHOULDER W/O-07/20/2023 11:48:11 AM Ordering Physician:CLAUDIA PARMAR Final Report: Indication: Fall, pain. Technique: Routine noncontrast CT left shoulder. Please note that all CT scans at this facility use dose modulation, iterative reconstruction, and/or weight-based dosing when appropriate to reduce radiation dose to as low as reasonably achievable. Comparison: X-rays 07/20/2023 Findings: There is no acute fracture. The alignment is normal. Degenerative joint disease. Intact visualized ribs. Sequela of granulomatous disease. No soft tissue mass. Joint effusion is present related to the degenerative joint disease. Impression: No sign of acute fracture. Please note that all CT scans at this facility use dose modulation, iterative reconstruction, and/or weight-based dosing when appropriate to reduce radiation dose to as low as reasonably achievable. Dictated by Jas Olvera MD @ 07/20/2023 2:19:39 PM (Electronic Signature) Assessment and Plan Assessment and plan (1) Fever: Status: Acute (2) Acute pain of left shoulder: Status: Acute (3) Sleep apnea: Problem comment: On AutoPAP, 4-20cm H2O, changed to 5-18 cm H2O on 01/2023. Sleep study 11/03/05 at [facility] Status: Chronic (4) Hyperlipidemia: Status: Chronic (5) Hypertension: Status: Chronic (6) Atrial fibrillation: Status: Chronic (7) Edema: Status: Chronic (8) Anticoagulation goal of INR 2 to 3: Status: Acute (9) Fall: Status: Acute (10) Hypokalemia: Status: Acute (11) Supratherapeutic INR: Status: Acute Plan 88-year-old male with several recent falls and presented through the emergency department with a fever of unclear etiology. He does not appear otherwise ill. Interestingly his white count and procalcitonin are mildly elevated. He was given a dose of ceftriaxone in the emergency department. Blood cultures are pending. Urinalysis is remarkable only for hematuria. COVID, influenza a, influenza B, and RSV PCR swabs are negative. Will admit for observation. I will hold off on further antibiotics and just monitor for now to see if he declares himself overnight. Abdomen is soft and essentially nontender and LFTs are unremarkable, so I do not think he needs gallbladder imaging at this time. Will replace potassium and recheck potassium and INR in the morning. Will also have PT and OT evaluate him because of the recent falls to help determine if he needs any services at home.
[2023-07-21] MEDS: OXYCODONE 5 MG TABLET 2.5 MG PO ×2 (02:41→10:30)
--- NOTE | 2023-07-21 06:56 | PC.NURSE ---
End of shift [id number]: Alert &O w/ periodic confusion. VSS w/ sats >90% on RA. Rating pain in left shoulder 8-02/11. See eMAR for intervention. Denies chest pain or SOB. KARENA wraps in BLE. SBA w/ walker and gait belt. Using call light appropriately.
[2023-07-21 07:38] LABS: Basophils Percent Auto 0.4 % (0.0-3.0); Eosinophils Percent Auto 0.4 % (0.0-7.0); Hematocrit 37.5 % (37.0-53.0); Hemoglobin* 12.8 gm/dL (13.5-17.5); Immature Granulocytes Pct Auto 0.3 %; Mean Corpuscular HGB Conc 34 gm/dL (32-36); Mean Corpuscular Hemoglobin 30 pg (26-34); Mean Corpuscular Volume 86 fL (80-100); Monocytes Percent Auto 19.2 % (0.0-11.0); Neutrophils Percent Auto 65.7 % (42.0-72.0); Platelet Count* 217 K/uL (140-440); RDW Coefficient of Variation % 13.6 % (11.5-15.5); Red Blood Count 4.34 m/uL (4.30-5.90); White Blood Count* 13.46 K/uL (4.50-11.00)
[2023-07-21 07:57] LABS: Chloride* 95 mmol/L (96-114); Sodium* 132 mmol/L (135-149)
[2023-07-21 08:00] LABS: Creatinine* 0.9 mg/dL (0.5-1.5); Est. Creatinine Clearance* 46.96; Estimated Glomerular Filt Rate 83 ml/min
[2023-07-21 08:01] LABS: Anion Gap 9 mEq/L (7-15); Blood Urea Nitrogen* 24 mg/dL (7-30); Calcium* 8.4 mg/dL (8.4-10.6); Carbon Dioxide* 28 mmol/L (20-32); Glucose* 131 mg/dL (60-115); Magnesium* 1.4 mg/dL (1.5-2.6)
[2023-07-21 08:14] LABS: Potassium* 2.9 mmol/L (3.6-5.1)
[2023-07-21 08:15] LABS: C Reactive Protein* 17.7 mg/dL (0.5-1.0)
[2023-07-21 08:18] LABS: INR 3.06 (0.91-1.10)
[2023-07-21] MEDS: POTASSIUM BICARB 25 MEQ EFFERVESCENT TAB PO ×3 (08:35→13:26)
[2023-07-21] MEDS: ASCORBIC ACID 500 MG TABLET PO (08:38)
[2023-07-21] MEDS: METOPROLOL SUCCINATE (XL) 50 MG TAB PO (08:38)
[2023-07-21] MEDS: POTASSIUM CHLORIDE 10 MEQ CAPSULE ER PO (08:38)
[2023-07-21] MEDS: dilTIAZem 240 MG CAP (CD) PO (08:38)
[2023-07-21] MEDS: MULTIVITAMIN/MINERALS 1 TABLET 1 TAB PO (08:38)
[2023-07-21] MEDS: ACETAMINOPHEN 325 MG TABLET PO ×2 (08:39→16:40)
[2023-07-21] MEDS: SODIUM CHLORIDE 0.9 % (FLUSH) 10 ML SYRINGE 5 ML IVF ×2 (08:39→21:49)
[2023-07-21] MEDS: metOLazone 2.5 MG TABLET 5 MG PO (08:45)
[2023-07-21] MEDS: AZITHROMYCIN 250 MG TABLET 500 MG PO (08:45)
[2023-07-21 08:47] LABS: Slide Review Reflex Yes
[2023-07-21 08:48] LABS: Slide Review Acceptable Review (Acceptable)
--- NOTE | 2023-07-21 15:47 | P.IMPN_ITS ---
Progress Note: A&P Assessment and plan (1) Frequent falls: Problem details: Patient appears to have gait instability leading to falls and now injuries leading to inability to walk independently. PT and OT to assess. Consult Orthopedics regarding left knee and shoulder injuries for plan of care Status: Acute (2) Atrial fibrillation: Problem details: Continue rate control and therapeutic anticoagulation Status: Chronic (3) Pneumonia: Problem details: Suspected based on abnormal chest x-ray, fever, leukocytosis, elevated CRP and procalcitonin. Ceftriaxone and azithromycin. Status: Acute (4) Hypokalemia: Problem details: Replace and follow Status: Acute (5) Sleep apnea: Problem details: On AutoPAP, 4-20cm H2O, changed to 5-18 cm H2O on 01/2023. Sleep study 11/03/05 at [facility] Status: Chronic (6) Injury of left shoulder: Problem details: Likely primarily from recent fall. No obvious bony injury. Suspect rotator cuff tear. Consult Ortho Status: Acute (7) Left knee injury: Problem details: From recent fall. May have a hemarthrosis. On anticoagulation causing quite a bit of bruising and stiffness. Consult Ortho Status: Acute Plan Patient is admitted the hospital for evaluation management of fever, suspected pneumonia, acute left shoulder and left knee injuries and disability from these illnesses and injury. Time Spent With Patient Total time spent: Total time spent today is 60 minutes, 40 minutes in coordination of care and discussing with patient, and other providers ongoing evaluation management of injuries and illness. Subjective Date Seen: 07/21/23 Interval history: Wilber Tsang is a 88 year old male who has had several falls recently came in this morning for a fever and left shoulder pain. Wilber is a poor historian, but was able to give me some history on and off which I was then able to verify over the phone with his , Rebecca. He had a fall about a month ago from which he may have injured his left shoulder. After that however his left shoulder and arm were relatively functional. He then fell again about 2 days ago on to a wagon. Since then he has been complaining of left shoulder pain. Since then he has not been able to move his left shoulder at all. It is quite painful His tells me that she checked his temperature this morning and it was mildly elevated at 100.5. Really got to the emergency room his temperature was elevated around 101. He was offered an observation admission and left against medical advice. He returned to the emergency room shortly after leaving as his family was worried about him going home. He denies any recent illnesses, coughs, colds, shortness of breath, or pain in the chest other than this left shoulder pain. He normally walks independently at home. He does have a walker but he does not usually use it. The fall a month ago was a slip on the ice. The recent fall was a loss of balance for unknown reasons. In addition to his left shoulder injury he also has a left knee injury. Radiographs of the shoulder and knee show no obvious fracture. Today he reports no symptoms of illness. He is not aware of fever and chills. He had a fever on admission but maximum temperature overnight was 99.1. He reports some cough which he attributes to a bad cold he had a month ago. No new shortness of breath. No chest pain. No nausea vomiting or abdominal pain. No diarrhea. Does have chronic urinary problems with frequency and urgency. On admission chest x-ray was mildly abnormal suggestive of heart failure though in the presence of cough and fever this may be aspiration pneumonia. Urinalysis notable for hematuria without pyuria. Blood and urine cultures are negative to date and pending. Exam Narrative: Exam Narrative: He is alert and not oriented to his circumstances. Head is without apparent trauma. Oropharynx with small airway. Neck is supple without mass or adenopathy. Respirations with somewhat diminished breath sounds. Rare basilar crackle. Otherwise clear and unlabored breathing. Cardiovascular: S1, S2, regular rate and rhythm. Abdomen: Bowel sounds active. Abdomen is soft without tenderness or mass. Right upper extremity moves normally without pain or weakness. Left upper extremity has marked limitation of movement in the shoulder with only 30? of abduction and flexion limited by pain. Left elbow motion and strength is normal as is left wrist motion and strength. Intact pulses and sensation distally. Right lower extremity is relatively normal. He does struggle to lift it off the bed but it is not painful. Strength appears to be intact in his right lower extremity. Left lower extremity as moderate swelling of the knee. There appears to be a joint effusion as well as bruising external to the joint. He has quite limited range of motion in that left knee. Hip and ankle moved without significant discomfort. Intact strength in his foot and ankle. Const: Vital Signs, click to edit/add: Vital Signs - 24 hr 07/20/23 17:06 07/20/23 17:44 07/20/23 19:25 Temperature 99.2 F 98.6 F Pulse Rate Pulse Rate [Right Pulse Oximeter] 96 89 Respiratory Rate 18 16 Blood Pressure [Ri ght Arm] 124/97 H Blood Pressure [Ri ght Upper Arm] 122/80 Pulse Oximetry 96 94 96 Oxygen Delivery Me thod Room Air Room Air 07/20/23 19:25 07/20/23 23:00 07/20/23 23:11 Temperature 99.0 F Pulse Rate 83 Pulse Rate [Right Pulse Oximeter] 83 Respiratory Rate 16 18 Blood Pressure [Ri ght Arm] 138/80 Blood Pressure [Ri ght Upper Arm] Pulse Oximetry 96 92 Oxygen Delivery Me thod Room Air Room Air 07/20/23 23:15 07/20/23 23:20 07/21/23 00:57 Temperature 99.0 F 98.2 F Pulse Rate Pulse Rate [Right Pulse Oximeter] Respiratory Rate 18 Blood Pressure [Ri ght Arm] Blood Pressure [Ri ght Upper Arm] Pulse Oximetry 92 Oxygen Delivery Me thod Room Air 07/21/23 02:33 07/21/23 07:00 07/21/23 07:00 Temperature 97.9 F 97.7 F Pulse Rate Pulse Rate [Right Pulse Oximeter] 76 81 Respiratory Rate 20 18 18 Blood Pressure [Ri ght Arm] 146/79 H 115/81 Blood Pressure [Ri ght Upper Arm] Pulse Oximetry 95 95 94 Oxygen Delivery Me thod Room Air Room Air Room Air 07/21/23 07:00 07/21/23 11:55 Temperature 99.1 F Pulse Rate Pulse Rate [Right Pulse Oximeter] 76 76 Respiratory Rate 18 18 Blood Pressure [Ri ght Arm] 122/72 Blood Pressure [Ri ght Upper Arm] Pulse Oximetry 94 Oxygen Delivery Me thod Room Air Documenting provider has reviewed patient's vital signs: yes Labs Labs: Laboratory Results - last 24 hr 07/20/23 07/21/23 07/21/23 20:35 06:49 06:52 WBC 13.46 H RBC 4.34 Hgb 12.8 L Hct 37.5 MCV 86 MCH 30 MCHC 34 RDW Coeff of Jayson 13.6 Plt Count 217 Neut % (Auto) 65.7 Lymph % (Auto) 14.0 L [place] % (Auto) 19.2 H Eos % (Auto) 0.4 Baso % (Auto) 0.4 Neut # (Auto) 8.80 H Lymph # (Auto) 1.90 [place] # (Auto) 2.60 H Eos # (Auto) 0.10 Baso # (Auto) 0.10 Abs Immat Gran (auto) 0.00 Imm/Tot Granulo (auto) 0.3 Diff Slide Review Acceptable Review INR 3.23 H 3.06 H Sodium 132 L Potassium 2.9 L* Chloride 95 L Carbon Dioxide 28 Anion Gap 9 BUN 24 Creatinine 0.9 Estimated Creat Clear 46.96 Estimated GFR 83 Glucose 131 H Lactate 1.9 Calcium 8.4 Magnesium 1.4 L C-Reactive Protein 17.7 H Procalcitonin 0.56 H Lab Acknowledgement Test Added
[2023-07-21] MEDS: WARFARIN 5 MG TABLET PO (16:40)
[2023-07-21] MEDS: cefTRIAXone 1 GM in 0.9 % SODIUM CHLORIDE Mini-bag 100 ML IVPB (17:53)
--- NOTE | 2023-07-21 19:43 | PC.NURSE ---
End of shift-- Very pleasant and cooperative, alert and oriented but forgetful patient. VSS and highest temp this shift 100.3F. SPO2 maintained >90% on RA. Pain appears well managed with Tylenol and occasional Oxycodone. Pt denied pain in arm while still, but rated it 10 out of 10 when moving it. Telemetry shows NSR with 1st degree AV block. LS clear but diminished. He denied nausea and ate 100% of 3 meals today. He was up to BR and chair with SBA and walker and tolerated it well. Bruising noted on right side of abdomen/ribs, abrasion and swelling noted to left knee and small area of redness that is warm to touch was noted on front of right pacheco. Area was outlined, but appeared improved even by this evening. was at bedside today and appears loving and supportive. Report to ERIK Joya.
--- NOTE | 2023-07-22 06:02 | PC.NURSE ---
Shift note: Pt was doing well at the start of the shift until 2300 where pt started increase confusion. Pt removed the telebox and did want it back. Pt was disoriented but easily redirecting. Pt removed the IV line and refused for insertion of new one. Had frequency of micturition. Dressed up and requested to sit in the recliner waiting to go home. Vitally stable.
[2023-07-22] MEDS: AZITHROMYCIN 250 MG TABLET 500 MG PO (06:47)
[2023-07-22 07:00] VITALS: BP 147/93; PULSE 81; RESP 18; TEMP 37.8; O2SAT 94
[2023-07-22] MEDS: ASCORBIC ACID 500 MG TABLET PO (08:32)
[2023-07-22] MEDS: MULTIVITAMIN/MINERALS 1 TABLET 1 TAB PO (08:32)
[2023-07-22] MEDS: metOLazone 2.5 MG TABLET 5 MG PO (08:32)
[2023-07-22] MEDS: METOPROLOL SUCCINATE (XL) 50 MG TAB PO (08:32)
[2023-07-22] MEDS: ACETAMINOPHEN 325 MG TABLET PO ×2 (08:32→17:13)
[2023-07-22] MEDS: dilTIAZem 240 MG CAP (CD) PO (08:33)
[2023-07-22] MEDS: POTASSIUM CHLORIDE 10 MEQ CAPSULE ER PO (08:33)
[2023-07-22 09:44] LABS: Basophils Percent Auto 0.2 % (0.0-3.0); Eosinophils Percent Auto 0.1 % (0.0-7.0); Hematocrit 35.5 % (37.0-53.0); Immature Granulocytes Pct Auto 0.3 %; Lymphocytes Percent Auto 6.6 % (20-44); Mean Corpuscular HGB Conc 34 gm/dL (32-36); Mean Corpuscular Hemoglobin 29 pg (26-34); Mean Corpuscular Volume 87 fL (80-100); Monocytes Percent Auto 12.1 % (0.0-11.0); Neutrophils Percent Auto 80.7 % (42.0-72.0); Platelet Count* 231 K/uL (140-440); RDW Coefficient of Variation % 13.5 % (11.5-15.5); Red Blood Count 4.09 m/uL (4.30-5.90); White Blood Count* 16.15 K/uL (4.50-11.00)
[2023-07-22 09:47] LABS: Slide Review Reflex No
[2023-07-22 09:59] LABS: Chloride* 93 mmol/L (96-114); Potassium* 3.2 mmol/L (3.6-5.1); Sodium* 132 mmol/L (135-149)
[2023-07-22 10:01] LABS: INR 2.57 (0.91-1.10); Prothrombin Time 29.6 Seconds
[2023-07-22 10:02] LABS: Est. Creatinine Clearance* 46.96; Estimated Glomerular Filt Rate 73 ml/min
[2023-07-22 10:03] LABS: Anion Gap 9 mEq/L (7-15); Blood Urea Nitrogen* 23 mg/dL (7-30); Calcium* 8.3 mg/dL (8.4-10.6); Carbon Dioxide* 30 mmol/L (20-32); Glucose* 161 mg/dL (60-115)
[2023-07-22 10:21] LABS: C Reactive Protein* 26.3 mg/dL (0.5-1.0)
--- NOTE | 2023-07-22 12:19 | CT_ITS ---
Final Report Patient: KRISTINE SIMPSON Facility:?[facility] Patient ID:?[id number] Site Patient ID:?[id number]. Site :?[id number] Study:?CT Chest/Abd/Pelvis w/iv-07/22/2023 2:24:24 PM Ordering Physician:YONI Final Report: INDICATION: Fever, history of basal cell carcinoma. TECHNIQUE: CT chest, abdomen and pelvis acquired with 113 mL Isovue 370 IV contrast. COMPARISON: 11/23/2022 and 05/19/2022 abdomen pelvis CTs, 05/24/[address] FINDINGS: CHEST: Cardiovascular structures: Heart size is normal. 5.1 cm ascending aortic aneurysm is unchanged. Mediastinum and azar: No mass or adenopathy. Lungs and pleura: Somewhat shallow inspiration with mild dependent atelectasis. No suspicious nodule or consolidation. Chest wall and axilla: No mass or adenopathy. Bones: No suspicious bone lesions. Unremarkable for age. ABDOMEN AND PELVIS: Liver: Mild steatosis. Gallbladder and bile ducts: Unremarkable. Pancreas: Unremarkable. Spleen: Unremarkable. Adrenal glands: Unremarkable. Kidneys: Bilateral cysts GI tract: Unremarkable. Vascular structures: Unremarkable. Lymph nodes: Unremarkable. Miscellaneous: Small fat containing left inguinal hernia. No free air or significant free fluid. Pelvic Organs: Unremarkable. Bones: Left hip arthroplasty. Lumbar spine fusion. IMPRESSION: 1. No acute findings. No cause for fever identified. 2. Hepatic steatosis. 3. Stable 5.1 cm ascending thoracic aortic aneurysm. Please note that all CT scans at this facility use dose modulation, iterative reconstruction, and/or weight-based dosing when appropriate to reduce radiation dose to as low as reasonably achievable. Dictated by Deepak Sim MD @ 07/22/2023 5:37:55 PM (Electronic Signature)
--- NOTE | 2023-07-22 12:22 | P.ORCN_ITS ---
History of Present Illness HPI Time Seen by Provider: 11:00 Date Seen: 07/22/23 Consult date: 07/22/23 Requesting physician: Luis Miguel Pa Consult reason: other (Left knee, left shoulder pain post fall) Chief complaint: Fell this AM Narrative: Orthopedics consulted on a pleasant 88-year-old male, chief complaint of left knee and left shoulder pain. This is result of two separate falls - most recent 07/18/2023 in his garage while getting ready to go to orthodox, and the initial fall a couple of months ago. Denies loss of consciousness with her fall. He believes he fell landing on his left knee on 07/18/2023. Was able to get up on his own. EMS brought the patient to [facility] ER for evaluation. The reports patient has also had a fever measured at home. Upon initial ER assessment on 07/20/2023, there is no radiographic evidence of fracture involving multiple bones including proximal humerus, knee, elbow including CT of the proximal humerus. Was found to have an elevated white count, CRP and fever in the ER. Recommendation was for patient to be admitted for observation, which patient declined and discharged AMA. He returned to the ER a few hours later as family did not feel he could manage at home (he lives independently with his in [place]). Similar findings at that ER visit. He was admitted for observation primarily due to his fever of unknown origin, leukocytosis, elevated CRP, and low potassium. Patient reports that his left shoulder and left knee bother him. He has history of chronic pain, not managed with pain medication. Left shoulder hurts anteriorly, and he has little to no motion or strength. He and his state that he was unable to lift his arm above chest height even before the initial fall a couple months ago. He is right-hand dominant. 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 Also comments left knee pain, swelling, heat, and bruising. He is on chronic Coumadin for atrial fibrillation. His knee feels mildly stiff with thresholds of motion (flexion and extension). Notes discomfort over the knee cap. Also has a history of right chronic knee discomfor. Past medical history pertinent for atrial fibrillation (Coumadin and rate control), frequent falls, hypertension, chronic anticoagulation, MRSA, left total hip arthroplasty, posterior approach Dr. Davis (06/09/2009). Review of Systems Narrative: No recent illnesses, chills, or aches; no numbness or tingling distally. [facility] Medical History Frequent falls ?R29.6 - Repeated falls (ICD-10) Hyperlipidemia ?E78.5 - Hyperlipidemia, unspecified (ICD-10) Neuropathy ?G62.9 - Polyneuropathy, unspecified (ICD-10) Heterotopic ossification of bone ?M89.8X9 - Other specified disorders of bone, unspecified site (ICD-10) Basal cell carcinoma (BCC) ?C44.91 - Basal cell carcinoma of skin, unspecified (ICD-10) Edema ?R60.9 - Edema, unspecified (ICD-10) 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/13) ?H93.13 - Tinnitus, bilateral (ICD-10) Spinal stenosis of lumbar region without neurogenic claudication (04/17/17) ?M48.061 - Spinal stenosis, lumbar region without neurogenic claudication (ICD-10) Sleep apnea (01/01/09) ?G47.30 - Sleep apnea, unspecified (ICD-10) Sensorineural hearing loss (SNHL) of both ears (07/29/13) ?H90.3 - Sensorineural hearing loss, bilateral (ICD-10) Seborrheic keratosis ?L82.1 - Other seborrheic keratosis (ICD-10) Seborrheic dermatitis ?L21.9 - Seborrheic dermatitis, unspecified (ICD-10) Sciatica ?M54.30 - Sciatica, unspecified side (ICD-10) Pulmonary nodules ?R91.8 - Other nonspecific abnormal finding of lung field (ICD-10) Non-ST elevation myocardial infarction (NSTEMI) ?I21.4 - Non-ST elevation (NSTEMI) myocardial infarction (ICD-10) Methicillin resistant Staphylococcus aureus culture positive (12/2014) ?Z22.322 - Carrier or suspected carrier of Methicillin resistant Staphylococcus aureus (ICD-10) custodial current use of anticoagulant therapy ?Z79.01 - custodial (current) use of anticoagulants (ICD-10) Insomnia, unspecified (01/01/09) ?G47.00 - Insomnia, unspecified (ICD-10) Hypertension (01/01/09) ?I10 - Essential (primary) hypertension (ICD-10) Erysipelas ?A46 - Erysipelas (ICD-10) Diverticulosis (03/02/10) ?K57.90 - Diverticulosis of intestine, part unspecified, without perforation or abscess without bleeding (ICD-10) Colon polyp (01/01/09) ?K63.5 - Polyp of colon (ICD-10) BPH (benign prostatic hyperplasia) (01/01/09) ?N40.0 - Benign prostatic hyperplasia without lower urinary tract symptoms (ICD-10) 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) ?K22.70 - Peter's esophagus without dysplasia (ICD-10) Atrial fibrillation ?I48.91 - Unspecified atrial fibrillation (ICD-10) Ascending aortic aneurysm (09/19/10) ?I71.2 - Thoracic aortic aneurysm, without rupture (ICD-10) Anticoagulation goal of INR 2 to 3 ?Z51.81 - Encounter for therapeutic drug level monitoring (ICD-10) ?Z79.01 - custodial (current) use of anticoagulants (ICD-10) Syncope ?R55 - Syncope and collapse (ICD-10) Surgical History Status post transurethral resection of prostate ?Z90.79 - Acquired absence of other genital organ(s) (ICD-10) Status post tonsillectomy and adenoidectomy ?Z90.89 - Acquired absence of other organs (ICD-10) Status post arthroscopy of right knee (01/01/09) ?Z98.890 - Other specified postprocedural states (ICD-10) History of fusion of lumbar spine ?Z98.1 - Arthrodesis status (ICD-10) History of blepharoplasty ?Z98.890 - Other specified postprocedural states (ICD-10) History of arthroplasty of left hip ?Z98.890 - Other specified postprocedural states (ICD-10) Social History Narrative: Lives independently with his , Rebecca. Wishes to be full code. What is your current living situation?: I presently have a place to live Problems where you live: no known problems Problems where you live details: NA In the past 12 months, utilities in danger of being shut off: no In past 12 months, lack of transportation kept you from medical appts, meetings, work, or getting things needed for daily living: no In the past 12 mos, have been you worried that your food would run out before you had money to buy more?: never true In the past 12 mos, the food you bought just didn't last and you didn't have money to buy more?: never true Highest level of school completed/degree received: high school graduate Smoking Status: Former smoker Do you use any of these nicotine containing products: None Second hand tobacco smoke exposure: No How often do you have a drink containing alcohol: monthly or less How many standard drinks containing alcohol do you have on a typical day: 1 or 2 How often do you have six or more drinks on one occasion: Never AUDIT-C Alcohol total score: 1 Non-prescribed substance use: denies use Caffeine: Yes How often does anyone, including family, friends and others, physically hurt you : never How often does anyone, including family, friends and others, insult or talk down to you: never How often does anyone, including family, friends and others, threaten you with harm: never How often does anyone, including family, friends and others, scream or curse at you: never Little interest or pleasure in doing things: more than half the days Feeling down, depressed, or hopeless: several days service: Yes Meds Home Medications and Allergies Home Medications Medication Instructions Recorded Confirmed Type multivitamin (Multiple Vitamins 1 tab PO QAM 12/20/21 07/20/23 History tablet) ascorbic acid (vitamin C) 250 mg 500 mg PO DAILY 07/20/23 07/20/23 History tablet (Vitamin C) cholecalciferol (vitamin D3) 25 25 mcg PO DAILY 07/20/23 07/20/23 History mcg (1,000 unit) capsule gabapentin 100 mg capsule 200 mg PO QPM PRN 07/20/23 07/20/23 History metolazone 5 mg tablet 5 mg PO DAILY 07/20/23 07/20/23 History potassium chloride 10 mEq 10 meq PO DAILY 07/20/23 07/20/23 History capsule,extended release Home Medication Comments: Patient is also on chronic warfarin, and diltiazem which is not indicated in the above medication section. Allergies Allergy/AdvReac Type Severity Reaction Status Date / Time No Known Allergies Allergy Verified 07/20/23 08:21 Ortho Exam Narrative Exam Narrative: General: Well-developed, well-nourished, A&Ox 3, no apparent acute distress. Pulmonary: Breathing pattern regular, even, without apparent distress or audible wheeze present. Left Shoulder: No lesions, no wounds, no erythema or ecchymosis; no heat TTP long head biceps tendon Soft tissue swelling anterior shoulder vs. joint effusion AROM: 20/10/20/unable to perform internal rotation due to position in chair, but I do not believe that he would be able to perform this even when not in his chair (contralateral side 170/170/50) PROM: 170/170 pain-free; at 90 degrees abduction ER/IR 70/25 painful more with internal rotation (contralateral side 90/30). Unable to perform any strength testing Positive drop test Nontender AC joint 2+ radial pulse, pink, warm digits with appropriate cap refill; intact dermatomes and myotomes including the radial, ulnar, median, and axillary nerve distributions Left Knee: Notable swelling throughout the knee especially prepatellar, with notable ecchymosis predominantly inferior patella, and just distal and posterior to the lateral joint line to the posterior knee. There is slight erythema that appears to be spreading around the knee, outlined in marker today. This is either erythema or ecchymosis as patient is on Coumadin. Patient's knee is notably warm to touch, as well as distal/mid thigh, and proximal lower leg Boggy prepatellar bursa (difficult to palpate borders of the patella) No obvious knee joint effusion No obvious wounds regarding the knee, lesions, there is dry skin directly over his knee, lower patellar region Tender to palpation prepatellar bursa Moderate tender medial joint line Mild-moderate tender lateral joint line Nontender medial/lateral retinaculum Nontender Tibial plateau Nontender Distal femoral condyles ROM 0-90 degrees actively, without significant discomfort until reaching threshold of flexion. Passive flexion is 95 degree. Gentle knee arc range of motion from 0-30 does not cause significant pain Stable to varus and valgus stress at 0 and 30? Intact straight leg raise 2+ DP/PT pulses, pink warm digits with brisk cap refill; intact dermatomes and myotomes distally including the common peroneal, tibial, saphenous, and sural nerve distributions Const Vital Signs, click to edit/add: Vital Signs - 24 hr 07/21/23 15:00 07/21/23 15:00 07/21/23 15:00 Temperature 100.8 F H Pulse Rate Pulse Rate [Right Pulse Oximeter] 83 83 Respiratory Rate 18 18 18 Blood Pressure [Right Arm] 134/61 Pulse Oximetry 94 94 Oxygen Delivery Method Room Air Room Air 07/21/23 15:20 07/21/23 16:40 07/21/23 17:57 Temperature 100.8 F H 100.3 F H Pulse Rate 79 Pulse Rate [Right Pulse Oximeter] Respiratory Rate Blood Pressure [Right Arm] Pulse Oximetry Oxygen Delivery Method 07/21/23 19:00 07/21/23 23:00 07/21/23 23:00 Temperature 98.5 F Pulse Rate Pulse Rate [Right Pulse Oximeter] 80 96 Respiratory Rate 18 18 Blood Pressure [Right Arm] 132/79 Pulse Oximetry 95 95 Oxygen Delivery Method Room Air Room Air 07/21/23 23:00 07/22/23 07:00 07/22/23 07:00 Temperature 98.6 F 100.1 F H Pulse Rate Pulse Rate [Right Pulse Oximeter] 96 81 Respiratory Rate 18 18 18 Blood Pressure [Right Arm] 142/103 H 147/93 H Pulse Oximetry 95 94 94 Oxygen Delivery Method Room Air Room Air Room Air 07/22/23 07:00 Temperature Pulse Rate Pulse Rate [Right Pulse Oximeter] 81 Respiratory Rate 18 Blood Pressure [Right Arm] Pulse Oximetry Oxygen Delivery Method Results Labs Labs: Laboratory Results - last 48 hr 07/20/23 07/21/23 07/21/23 20:35 06:49 06:52 WBC 13.46 H RBC 4.34 Hgb 12.8 L Hct 37.5 MCV 86 MCH 30 MCHC 34 RDW Coeff of Jayson 13.6 Plt Count 217 Neut % (Auto) 65.7 Lymph % (Auto) 14.0 L Miner % (Auto) 19.2 H Eos % (Auto) 0.4 Baso % (Auto) 0.4 Neut # (Auto) 8.80 H Lymph # (Auto) 1.90 Miner # (Auto) 2.60 H Eos # (Auto) 0.10 Baso # (Auto) 0.10 Abs Immat Gran (auto) 0.00 Imm/Tot Granulo (auto) 0.3 Diff Slide Review Acceptable Review INR 3.23 H 3.06 H Sodium 132 L Potassium 2.9 L* Chloride 95 L Carbon Dioxide 28 Anion Gap 9 BUN 24 Creatinine 0.9 Estimated Creat Clear 46.96 Estimated GFR 83 Glucose 131 H Lactate 1.9 Calcium 8.4 Magnesium 1.4 L C-Reactive Protein 17.7 H Procalcitonin 0.56 H Lab Acknowledgement Test Added 07/22/23 09:37 WBC 16.15 H RBC 4.09 L Hgb 12.0 L Hct 35.5 L MCV 87 MCH 29 MCHC 34 RDW Coeff of Jayson 13.5 Plt Count 231 Neut % (Auto) 80.7 H Lymph % (Auto) 6.6 L Miner % (Auto) 12.1 H Eos % (Auto) 0.1 Baso % (Auto) 0.2 Neut # (Auto) 13.00 H Lymph # (Auto) 1.10 Miner # (Auto) 2.00 H Eos # (Auto) 0.00 Baso # (Auto) 0.00 Abs Immat Gran (auto) 0.00 Imm/Tot Granulo (auto) 0.3 Diff Slide Review INR 2.57 H Sodium 132 L Potassium 3.2 L Chloride 93 L Carbon Dioxide 30 Anion Gap 9 BUN 23 Creatinine 1.0 Estimated Creat Clear 46.96 Estimated GFR 73 Glucose 161 H Lactate Calcium 8.3 L Magnesium C-Reactive Protein 26.3 H Procalcitonin Lab Acknowledgement Diagnostic results Shoulder x-ray: report reviewed and image reviewed Shoulder CT: report reviewed and image reviewed Knee x-ray: report reviewed and image reviewed Additional Comments: 2 different AP, and scap Y-views left shoulder ordered by different provider [facility] dated 07/20/2023. These images were reviewed and corroborated with the radiology report showing no obvious acute fractures, avulsions, or interosseous pathology. While the glenohumeral joint is concentrically reduced without significant joint space narrowing, we do appreciate proximal migration of the humeral head relative to glenoid by approximately 9 mm. This decreases the acromial humeral space. Moderate joint space narrowing of the AC joint with small osteophytes inferiorly off the distal clavicle. Calcification seen lateral to the acromion. Left shoulder noncontrast CT ordered by different provider [facility] dated 07/20/2023. These images were reviewed and corroborated with the radiology report showing no acute fracture. Normal alignment. No soft tissue mass. Joint effusion present. Three views left knee ordered by different provider [facility] dated 07/20/2023. These are nonweightbearing views. These images were reviewed and corroborated with the radiology report showing mild joint space narrowing of the medial compartment. Chondrocalcinosis seen predominantly lateral joint. No obvious fractures, loose bodies, or interosseous pathology. Osteophytes off the inferior and superior pole patella. Notable calcifications to the posterior vessels. No obvious knee joint effusion or lipohemarthrosis. Prominent soft tissue swelling over the prepatellar region. Assessment and Plan Assessment and plan (1) Frequent falls: Problem comment: Patient appears to have gait instability leading to falls and now injuries leading to inability to walk independently. PT and OT to assess. Consult Orthopedics regarding left knee and shoulder injuries for plan of care Status: Acute Total time spent: Total time spent is greater than 50% in coordination of care (as documented) at patient's floor/unit and/or counseling patient: (2) Atrial fibrillation: Problem comment: Continue rate control and therapeutic anticoagulation Status: Chronic Total time spent: Total time spent is greater than 50% in coordination of care (as documented) at patient's floor/unit and/or counseling patient: (3) Pneumonia: Problem comment: Suspected based on abnormal chest x-ray, fever, leukocytosis, elevated CRP and procalcitonin. Ceftriaxone and azithromycin. Status: Acute Total time spent: Total time spent is greater than 50% in coordination of care (as documented) at patient's floor/unit and/or counseling patient: (4) Hypokalemia: Problem comment: Replace and follow Status: Acute Total time spent: Total time spent is greater than 50% in coordination of care (as documented) at patient's floor/unit and/or counseling patient: (5) Sleep apnea: Problem comment: On AutoPAP, 4-20cm H2O, changed to 5-18 cm H2O on 01/2023. Sleep study 11/03/05 at [facility] Status: Chronic Total time spent: Total time spent is greater than 50% in coordination of care (as documented) at patient's floor/unit and/or counseling patient: (6) Injury of left shoulder: Problem comment: Likely primarily from recent fall. No obvious bony injury. Suspect rotator cuf f tear. Consult Ortho Status: Acute Total time spent: Total time spent is greater than 50% in coordination of care (as documented) at patient's floor/unit and/or counseling patient: (7) Left knee injury: Problem comment: From recent fall. May have a hemarthrosis. On anticoagulation causing quite a bit of bruising and stiffness. Consult Ortho Smooth, unimpaired, pain-free left knee motion without obvious effusion or hemarthrosis Status: Acute Total time spent: Total time spent is greater than 50% in coordination of care (as documented) at patient's floor/unit and/or counseling patient: (8) Rotator cuff arthropathy of left shoulder: Problem comment: Exacerbated and inflamed from most recent falls. Status: Acute (9) Prepatellar bursitis, left knee: Problem comment: Appears aseptic Status: Acute Plan We had a thorough discussion regarding pathology. Regarding left shoulder: This appears to be rotator cuff arthropathy, as evidenced by his positive exam findings of poor strength and poor motion, positive drop test, and radiograph findings of proximal migration of the humeral head relative to glenoid. Likely a chronic issue for him, worsened by the most recent fall due, resulting in inflammation. Treatment for left shoulder includes gentle motion with PT/OT, and activities as tolerated. Would be important for him to assess ability to use walker with this left arm weakness in order to determine if he can safely use a walker. He may also be developing an element of frozen shoulder, as evidenced on exam. He may benefit from corticosteroid injection in the future, but at this time since loss of motion and strength are the overriding concerns versus pain. Albeit, he has shoulder pain, but it is not substantial. Thus, we elect to postpone left shoulder corticosteroid injection at this time. Encouraged to follow up outpatient in Orthopedic Clinic to address the shoulder further, establish outpatient physical therapy, and further explain prognosis. I explained today that left shoulder MRI would not change our treatment at this time. He states understanding and agrees with the plan. Left knee: My concern for joint proper infection is low, as he has smooth, unimpaired, pain-free gentle left knee motion arc with passive and active motion. No obvious effusion. We see some swelling over the prepatellar region, which signifies prepatellar bursa especially with the associated ecchymosis all related to his fall onto this left knee. There is no obvious fracture of the patella. The region is warm to touch. The outline region is erythema verses progressing ecchymosis as patient is on Coumadin. He also has notable ecchymosis lateral and posterior knee. After discussing with the patient as well as with hospitalist, we elect to try and aspirate the prepatellar bursa to identify if this is the cause of his leukocytosis, and CRP which both are trending up, as well as persistent fever. Patient agrees with this procedure. Risks, benefits, and alternatives to aspiration and injection provided, including but not limited to: infection, needle encroachment on a nerve or vascular structure, or non sustaining symptom relief. Patient stated understanding, and elects to proceed. After sterile ChloraPrep prep of the left lateral aspect of his knee and topical ethyl chloride spray was applied for topical numbing, a 25 gauge needle was inserted into the distal lateral aspect of the knee and prepatellar bursa for injection of 5 mL 1% lidocaine without epinephrine for numbing purposes. This medication was allowed to numb the region. Then, an 18 gauge needle was inserted into the prepatellar bursa from a distal lateral approach, aspirating approximately 1cc of ray blood, without obvious purulence. This syringe of aspirate was immediately taken to the lab, where unfortunately a clot had already formed; thus, cell count was not able to be performed, but Gram stain and cultures (aerobic, anaerobic) were ran. Procedure tolerated well by the patient without complication. Band-Aid was applied. Post injection instructions given. Patient is encouraged to move his knee as tolerated gently, as well as ankle pumps. Encouraged Austen socks. Orthopedics will continue to follow this patient while in the hospital.
--- NOTE | 2023-07-22 12:28 | PC.NURSE ---
Per lab, unable to perform Cell count with differential due to clot in syringe despite taking sample directly to lab. Macario MARIN notified.
[2023-07-22 12:53] VITALS: BP 119/69; PULSE 64; RESP 18; O2SAT 95
[2023-07-22] MEDS: POTASSIUM BICARB 25 MEQ EFFERVESCENT TAB 50 MEQ PO (14:40)
[2023-07-22 15:00] VITALS: BP 125/76; PULSE 74; RESP 16; RESP 18; TEMP 37.6; O2SAT 95
--- NOTE | 2023-07-22 15:57 | P.IMPN_ITS ---
Progress Note: A&P Assessment and plan (1) Fever: Problem details: Cause for this was initially thought to be a urinary tract infection or pneumonia. Treatment with ceftriaxone and azithromycin has not made any significant improvement. Does not have any obvious symptoms to suggest a focus of infection. Cultures so far are negative. Inflammatory markers continued to increase with marked elevation of white blood count and CRP. Continue to search for infection. Repeat blood cultures. Obtain chest abdomen pelvis CT. Await cultures from aspiration of the prepatellar bursa. Status: Acute (2) Frequent falls: Problem details: Patient appears to have gait instability leading to falls and now injuries leading to inability to walk independently. PT and OT to assess. Consult Orthopedics regarding left knee and shoulder injuries for plan of care Status: Acute (3) Atrial fibrillation: Problem details: Continue rate control and therapeutic anticoagulation Status: Chronic (4) Pneumonia: Problem details: Suspected based on abnormal chest x-ray, fever, leukocytosis, elevated CRP and procalcitonin. Obtain chest CT and broaden spectrum of antibiotics Status: Acute (5) Hypokalemia: Problem details: Replace and follow Status: Acute (6) Sleep apnea: Problem details: On AutoPAP, 4-20cm H2O, changed to 5-18 cm H2O on 01/2023. Sleep study 11/03/05 at [facility] Status: Chronic (7) Injury of left shoulder: Problem details: Likely primarily from recent fall. No obvious bony injury. Suspect rotator cuff tear. Consult Ortho Status: Acute (8) Left knee injury: Problem details: From recent fall. May have a hemarthrosis. On anticoagulation causing quite a bit of bruising and stiffness. Consult Ortho Smooth, unimpaired, pain-free left knee motion without obvious effusion or hemarthrosis Status: Acute (9) Rotator cuff arthropathy of left shoulder: Problem details: Exacerbated and inflamed from most recent falls. Status: Acute (10) Prepatellar bursitis, left knee: Problem details: Appears aseptic. Gram stain and cultures pending from aspiration on 07/22 Status: Acute Plan Continue in hospital for evaluation of injuries, disability, fever, in creasing phlegm a yadira markers. Broad-spectrum IV antibiotics pending identification of a source for his illness. Time Spent With Patient Total time spent: Total time spent today is 60 minutes, 40 minutes in coordination of care discussing with patient and family and other providers ongoing evaluation management of fever and injuries Subjective Date Seen: 07/22/23 Interval history: Wilber Tsang is a 88 year old male who has had several falls recently came in this morning for a fever and left shoulder pain. Wilber is a poor historian, but was able to give me some history on and off which I was then able to verify over the phone with his , Rebecca. He had a fall about a month ago from which he may have injured his left shoulder. After that however his left shoulder and arm were relatively functional. He then fell again about 2 days ago on to a wagon. Since then he has been complaining of left shoulder pain. Since then he has not been able to move his left shoulder at all. It is quite painful His tells me that she checked his temperature this morning and it was mildly elevated at 100.5. Really got to the emergency room his temperature was elevated around 101. He was offered an observation admission and left against medical advice. He returned to the emergency room shortly after leaving as his family was worried about him going home. He denies any recent illnesses, coughs, colds, shortness of breath, or pain in the chest other than this left shoulder pain. He normally walks independently at home. He does have a walker but he does not usually use it. The fall a month ago was a slip on the ice. The recent fall was a loss of balance for unknown reasons. In addition to his left shoulder injury he also has a left knee injury. Radiographs of the shoulder and knee show no obvious fracture. Today he reports no symptoms of illness. He is not aware of fever and chills. He had a fever on admission but maximum temperature overnight was 99.1. He reports some cough which he attributes to a bad cold he had a month ago. No new shortness of breath. No chest pain. No nausea vomiting or abdominal pain. No diarrhea. Does have chronic urinary problems with frequency and urgency. On admission chest x-ray was mildly abnormal suggestive of heart failure though in the presence of cough and fever this may be aspiration pneumonia. Urinalysis notable for hematuria without pyuria. Blood and urine cultures are negative to date and pending. Patient today reports primarily wants to go home. Denies any other problems. His shoulder in knee are still bothering him. He is having no cough shortness of breath. Had a low-grade fever again this morning. Initially refuse blood tests but then agreed after I spoke with him. Exam Narrative: Exam Narrative: He is alert and appears in no distress. He is oriented to his circumstances and when I speak with him is able to negotiate up plan of care where he stays in the hospital gets more treatment and evaluation. Respirations are clear to auscultation. No wheezing rales or rhonchi. Cardiovascular: S1, S2, regular rate and rhythm. Abdomen is soft without tenderness or mass. Has a little bit of superficial bruising over his right upper quadrant. External genitalia normal. Extremities with moderate edema bilaterally. Left shoulder appears without obvious trauma but marked limitation of motion remains and is quite painful to attempt range of motion. He moves his elbow and wrist on the left quite well. Left knee is moderately swollen and bruised it is mildly warm to touch. There appears to be a prepatellar bursa out fluid collection that is ballotable. There may also be at a intra-articular fluid collection. He tolerates range of motion the knee fairly well with only mild discomfort. Const: Vital Signs, click to edit/add: Vital Signs - 24 hr 07/21/23 16:40 07/21/23 17:57 07/21/23 19:00 Temperature 100.8 F H 100.3 F H 98.5 F Pulse Rate [Right Pulse Oximeter] 80 Respiratory Rate 18 Blood Pressure [Ri ght Arm] 132/79 Pulse Oximetry 95 Oxygen Delivery Me thod Room Air 07/21/23 23:00 07/21/23 23:00 07/21/23 23:00 Temperature 98.6 F Pulse Rate [Right Pulse Oximeter] 96 96 Respiratory Rate 18 18 Blood Pressure [Ri ght Arm] 142/103 H Pulse Oximetry 95 95 Oxygen Delivery Me thod Room Air Room Air 07/22/23 07:00 07/22/23 07:00 07/22/23 07:00 Temperature 100.1 F H Pulse Rate [Right Pulse Oximeter] 81 81 Respiratory Rate 18 18 18 Blood Pressure [Ri ght Arm] 147/93 H Pulse Oximetry 94 94 Oxygen Delivery Fl thod Room Air Room Air 07/22/23 12:53 Temperature Pulse Rate [Right Pulse Oximeter] 64 Respiratory Rate 18 Blood Pressure [Ri ght Arm] 119/69 Pulse Oximetry 95 Oxygen Delivery Fl thod Room Air Documenting provider has reviewed patient's vital signs: yes Labs Labs: Laboratory Results - last 24 hr 07/22/23 09:37 WBC 16.15 H RBC 4.09 L Hgb 12.0 L Hct 35.5 L MCV 87 MCH 29 MCHC 34 RDW Coeff of Jayson 13.5 Plt Count 231 Neut % (Auto) 80.7 H Lymph % (Auto) 6.6 L [place] % (Auto) 12.1 H Eos % (Auto) 0.1 Baso % (Auto) 0.2 Neut # (Auto) 13.00 H Lymph # (Auto) 1.10 [place] # (Auto) 2.00 H Eos # (Auto) 0.00 Baso # (Auto) 0.00 Abs Immat Gran (auto) 0.00 Imm/Tot Granulo (auto) 0.3 INR 2.57 H Sodium 132 L Potassium 3.2 L Chloride 93 L Carbon Dioxide 30 Anion Gap 9 BUN 23 Creatinine 1.0 Estimated Creat Clear 46.96 Estimated GFR 73 Glucose 161 H Calcium 8.3 L C-Reactive Protein 26.3 H
[2023-07-22] MEDS: WARFARIN 5 MG TABLET PO (17:12)
[2023-07-22 17:20] VITALS: PULSE 72
[2023-07-22 19:00] VITALS: BP 120/75; PULSE 74; RESP 18; TEMP 37.2; O2SAT 93
[2023-07-22] MEDS: PIPERACILLIN/TAZOBACTAM 3.375 GM in 0.9 % SODIUM CHLORIDE Mini-bag 100 ML IVPB (19:11)
--- NOTE | 2023-07-22 19:47 | PC.NURSE ---
End of shift-- Pt pleasant and alert, but was refusing care this morning. was called and arrived at bedside and with support from her and his son, pt was convinced to cooperate. Pt has been pleasant and cooperative since. VSS and had only low grade temps today. Pain in shoulder and knee are well managed with Tylenol, though pt still c/o pain with movement. Telemetry shows NSR with 1st degree AV block. LS CTA. He denied nausea and tolerated a regular diet. He was up to BR and chair with SBA and walker and tolerated it well. Ortho PA at bedside today and aspirated fluid from pt's knee and pt had an abdominal CT this afternoon and he tolerated both procedures well. and son were at bedside today and appear loving and supportive. Report to ERIK Townsend.
[2023-07-22] MEDS: MAGNESIUM IV 2 GM/50 ML PIGGYBACK IVPB (20:00)
[2023-07-22 23:00] VITALS: BP 142/76; PULSE 59; PULSE 74; PULSE 76; RESP 20; TEMP 36.7; O2SAT 95
[2023-07-23] VITALS (10 sets, daily range): BP systolic 102–138; BP diastolic 51–82; PULSE 60–90; RESP 16–20; TEMP 36.7–37.5; O2SAT 92–96
[2023-07-23] MEDS: PIPERACILLIN/TAZOBACTAM 3.375 GM in 0.9 % SODIUM CHLORIDE Mini-bag 100 ML IVPB ×4 (01:33→18:58)
[2023-07-23 06:19] LABS: Basophils Absolute Auto 0.04 K/uL (0.00-0.30); Basophils Percent Auto 0.5 % (0.0-3.0); Eosinophils Absolute Auto 0.17 K/uL (0.00-0.50); Eosinophils Percent Auto 1.9 % (0.0-7.0); Hematocrit 31.1 % (37.0-53.0); Hemoglobin* 10.6 gm/dL (13.5-17.5); Immature Granulocytes Abs Auto 0.11 K/uL (0.00-0.30); Immature Granulocytes Pct Auto 1.2 %; Lymphocytes Percent Auto 16.6 % (20-44); Mean Corpuscular HGB Conc 34 gm/dL (32-36); Mean Corpuscular Hemoglobin 30 pg (26-34); Mean Corpuscular Volume 87 fL (80-100); Monocytes Percent Auto 13.2 % (0.0-11.0); Neutrophils Percent Auto 66.6 % (42.0-72.0); Platelet Count* 242 K/uL (140-440); RDW Coefficient of Variation % 13.8 % (11.5-15.5); Red Blood Count 3.56 m/uL (4.30-5.90); White Blood Count* 8.86 K/uL (4.50-11.00)
[2023-07-23 06:22] LABS: Slide Review Reflex No
[2023-07-23 06:25] LABS: Chloride* 97 mmol/L (96-114)
[2023-07-23 06:26] LABS: Sodium* 133 mmol/L (135-149)
[2023-07-23 06:28] LABS: Est. Creatinine Clearance* 46.96; Estimated Glomerular Filt Rate 73 ml/min
[2023-07-23 06:29] LABS: Anion Gap 7 mEq/L (7-15); Blood Urea Nitrogen* 23 mg/dL (7-30); Calcium* 7.9 mg/dL (8.4-10.6); Carbon Dioxide* 29 mmol/L (20-32); Glucose* 150 mg/dL (60-115)
--- NOTE | 2023-07-23 06:29 | PC.NURSE ---
End of shift report: Patient alert and oriented to self, date and place. At 2114 patient set off bed alarm, patient found to have pulled out IV. New IV placed. Patient was easily redirected. Charge nurse moved room closer to nurses station due to increased confusion at that time. Patient pleasant and cooperative through the night.
[2023-07-23 06:33] LABS: Potassium* 2.7 mmol/L (3.6-5.1)
[2023-07-23 06:35] LABS: INR 2.34 (0.91-1.10); Prothrombin Time 27.4 Seconds
[2023-07-23 06:44] LABS: Procalcitonin* 0.55 ng/mL (<0.50)
[2023-07-23 07:00] LABS: C Reactive Protein* 21.3 mg/dL (0.5-1.0)
[2023-07-23 07:06] LABS: Erythrocyte SedimentationRate* 97 mm/hr (2-15)
[2023-07-23] MEDS: POTASSIUM BICARB 25 MEQ EFFERVESCENT TAB PO ×4 (07:55→13:27)
[2023-07-23] MEDS: dilTIAZem 240 MG CAP (CD) PO (08:52)
[2023-07-23] MEDS: MAGNESIUM OXIDE 400 MG TABLET PO (08:53)
[2023-07-23] MEDS: METOPROLOL SUCCINATE (XL) 50 MG TAB PO (08:53)
[2023-07-23] MEDS: ASCORBIC ACID 500 MG TABLET PO (08:53)
[2023-07-23] MEDS: MULTIVITAMIN/MINERALS 1 TABLET 1 TAB PO (08:53)
[2023-07-23] MEDS: POTASSIUM CHLORIDE 10 MEQ CAPSULE ER PO (09:22)
[2023-07-23] MEDS: metOLazone 2.5 MG TABLET 5 MG PO (09:23)
[2023-07-23] MEDS: SODIUM CHLORIDE 0.9 % (FLUSH) 10 ML SYRINGE 5 ML IVF ×3 (11:05→20:10)
--- NOTE | 2023-07-23 11:21 | PM.IMPN1 ---
Progress Note: A&P Assessment and plan (1) Fever: Problem details: Cause for this was initially thought to be a urinary tract infection or pneumonia. Treatment with ceftriaxone and azithromycin has not made any significant improvement. Does not have any obvious symptoms to suggest a focus of infection. Cultures so far are negative. Inflammatory markers continued to increase with marked elevation of white blood count and CRP. Continue to search for infection. Repeat blood cultures. Patient has no symptoms of infection. Physical examination shows no focus of definite infection. Chest abdomen and pelvis CT shows no obvious source of infection. Await cultures from aspiration of the prepatellar bursa. Knee bursitis does not appear to be infectious. Continue antibiotics for 1 more day and monitor clinically. Status: Acute (2) Frequent falls: Problem details: Patient appears to have gait instability leading to falls and now injuries leading to inability to walk independently. PT and OT to assess. Orthopedics recommends outpatient therapy. Status: Acute (3) Atrial fibrillation: Problem details: Continue rate control and therapeutic anticoagulation Status: Chronic (4) Pneumonia: Problem details: Pneumonia diagnosed on admission. CT chest does not show signs of pneumonia at this time. Continue to monitor for signs and symptoms. One more day of IV antibiotics. Status: Acute (5) Hypokalemia: Problem details: Replace and follow. Likely due to metolazone. Status: Acute (6) Sleep apnea: Problem details: On AutoPAP, 4-20cm H2O, changed to 5-18 cm H2O on 01/2023. Sleep study 11/03/[address] [facility] Status: Chronic (7) Injury of left shoulder: Problem details: Likely primarily from recent fall. No obvious bony injury. Suspect rotator cuff tear. Consult Ortho Status: Acute (8) Left knee injury: Problem details: From recent fall. May have a hemarthrosis. On anticoagulation causing quite a bit of bruising and stiffness. Consult Ortho Smooth, unimpaired, pain-free left knee motion without obvious effusion or hemarthrosis Status: Acute (9) Rotator cuff arthropathy of left shoulder: Problem details: Exacerbated and inflamed from most recent falls. Status: Acute (10) Prepatellar bursitis, left knee: Problem details: Appears aseptic. Gram stain and cultures pending from aspiration on 07/22 Status: Acute (11) Delirium due to general medical condition: Problem details: Patient appears to have relatively mild hospital-acquired delirium. Episodes occurred yesterday and today but then clear fairly well. Status: Acute Plan Continue in hospital for ongoing broad-spectrum IV antibiotics pending culture results and clinical course. Today patient appears to be improving with his mental status, physical functioning, inflammatory markers. Probable discharge to home with his if continued to do well. Time Spent With Patient Total time spent: Total time spent today is 55 minutes, 35 minutes in coordination of care and discussing with patient and family ongoing evaluation and management of injuries, falls, weakness, confusion, fever. Subjective Date Seen: 07/23/23 Interval history: Wilber Tsang is a 88 year old male who has had several falls recently came in this morning for a fever and left shoulder pain. Wilber is a poor historian, but was able to give me some history on and off which I was then able to verify over the phone with his , Rebecca. He had a fall about a month ago from which he may have injured his left shoulder. After that however his left shoulder and arm were relatively functional. He then fell again about 2 days ago on to a wagon. Since then he has been complaining of left shoulder pain. Since then he has not been able to move his left shoulder at all. It is quite painful His tells me that she checked his temperature this morning and it was mildly elevated at 100.5. Really got to the emergency room his temperature was elevated around 101. He was offered an observation admission and left against medical advice. He returned to the emergency room shortly after leaving as his family was worried about him going home. He denies any recent illnesses, coughs, colds, shortness of breath, or pain in the chest other than this left shoulder pain. He normally walks independently at home. He does have a walker but he does not usually use it. The fall a month ago was a slip on the ice. The recent fall was a loss of balance for unknown reasons. In addition to his left shoulder injury he also has a left knee injury. Radiographs of the shoulder and knee show no obvious fracture. Today he reports no symptoms of illness. He is not aware of fever and chills. He had a fever on admission but maximum temperature overnight was 99.1. He reports some cough which he attributes to a bad cold he had a month ago. No new shortness of breath. No chest pain. No nausea vomiting or abdominal pain. No diarrhea. Does have chronic urinary problems with frequency and urgency. On admission chest x-ray was mildly abnormal suggestive of heart failure though in the presence of cough and fever this may be aspiration pneumonia. Urinalysis notable for hematuria without pyuria. Blood and urine cultures are negative to date and pending. Yesterday and last night patient had episodes where he was a little confused, refusing to cooperate with nursing and blood testing and demanding to go home. When I talk with him and when his talks with him it gets better and he is much more cooperative. Today he seemed more oriented and pleasant and cooperative. He was more articulate and did much better with physical therapy. Exam Narrative: Exam Narrative: He is alert and pleasant. Much more talkative. More oriented to his circumstances. No obvious facial asymmetry. Respirations are clear to auscultation. Breathing is unlabored. Cardiovascular: S1, S2, regular rate and rhythm. Abdomen is soft without tenderness or mass. Left shoulder is nontender to palpation but still marked limitation in motion in his left shoulder. Left knee with still moderate swelling and bruising. No erythema. He has some mild tenderness with palpation. Fairly good range of motion. He is observed to walk with a walker quite effectively despite his shoulder and knee problems. Still with 3+ edema in his legs. Const: Vital Signs, click to edit/add: Vital Signs - 24 hr 07/22/23 12:53 07/22/23 15:00 07/22/23 15:00 Temperature 99.7 F H Pulse Rate Pulse Rate [Right Pulse Oximeter] 64 74 Respiratory Rate 18 16 18 Blood Pressure [Ri ght Arm] 119/69 125/76 Pulse Oximetry 95 95 95 Oxygen Delivery Nc thod Room Air Room Air Room Air 07/22/23 15:00 07/22/23 17:20 07/22/23 19:00 Temperature 98.9 F Pulse Rate 72 Pulse Rate [Right Pulse Oximeter] 74 74 Respiratory Rate 18 18 Blood Pressure [Ri ght Arm] 120/75 Pulse Oximetry 93 Oxygen Delivery Nc thod Room Air 07/22/23 23:00 07/22/23 23:00 07/22/23 23:00 Temperature Pulse Rate 59 L Pulse Rate [Right Pulse Oximeter] 74 Respiratory Rate 20 20 Blood Pressure [Ri ght Arm] Pulse Oximetry 95 Oxygen Delivery Nc thod Room Air 07/22/23 23:00 07/23/23 03:00 07/23/23 07:51 Temperature 98.0 F 98.6 F 98.7 F Pulse Rate Pulse Rate [Right Pulse Oximeter] 76 90 68 Respiratory Rate 20 20 20 Blood Pressure [Ri ght Arm] 142/76 H 132/74 117/51 L Pulse Oximetry 95 96 92 Oxygen Delivery Me thod Room Air Room Air Room Air 07/23/23 09:14 Temperature Pulse Rate 71 Pulse Rate [Right Pulse Oximeter] Respiratory Rate Blood Pressure [Ri ght Arm] Pulse Oximetry Oxygen Delivery Me thod Documenting provider has reviewed patient's vital signs: yes Labs Labs: Laboratory Results - last 24 hr 07/23/23 05:36 WBC 8.86 RBC 3.56 L Hgb 10.6 L Hct 31.1 L MCV 87 MCH 30 MCHC 34 RDW Coeff of Jayson 13.8 Plt Count 242 Neut % (Auto) 66.6 Lymph % (Auto) 16.6 L [place] % (Auto) 13.2 H Eos % (Auto) 1.9 Baso % (Auto) 0.5 Neut # (Auto) 5.90 Lymph # (Auto) 1.50 [place] # (Auto) 1.20 H Eos # (Auto) 0.17 Baso # (Auto) 0.04 Abs Immat Gran (auto) 0.11 Imm/Tot Granulo (auto) 1.2 ESR 97 H INR 2.34 H Sodium 133 L Potassium 2.7 L* Chloride 97 Carbon Dioxide 29 Anion Gap 7 BUN 23 Creatinine 1.0 Estimated Creat Clear 46.96 Estimated GFR 73 Glucose 150 H Calcium 7.9 L Magnesium 2.0 C-Reactive Protein 21.3 H Procalcitonin 0.55 H
--- NOTE | 2023-07-23 14:50 | PC.NURSE ---
shift note: pt up 1/walker/GB in room with steady slow gait. pt rating lt knee 3/10 pain. lt knee swollen with bruising. markings on lt knee and lower rt calf:redness gone. PP+ bilat. IV patent. Pt afeb
[2023-07-23] MEDS: ACETAMINOPHEN 325 MG TABLET PO (16:26)
--- NOTE | 2023-07-23 16:50 | PC.SOCIAL ---
Discharge planning- Met with pt and pt's to discuss discharge plans. Per therapy, pt will discharge with outpatient PT/OT orders. Pt has assistance from and children. Pt's son is installing grab bars in the home today. Pt is not in need of any resources or social work assistance.
[2023-07-23] MEDS: WARFARIN 5 MG TABLET PO (17:37)
--- NOTE | 2023-07-23 19:32 | PC.NURSE ---
End of shift [id number] ? RN took over pt care at approximately 1500. Pt alert, oriented, cooperative. Pt reported pain in L ankle from reportedly walking with PT. RN propped L leg onto pillows and gave PRN medication per MAR with verbalized improvement. Bruising noted on L knee from fall prior to hospitalization. Mild edema noted in bilat LE, wraps added. Pt tolerating RA, regular diet, fluids. VSS, afebrile. Pt appears to be resting comfortably at end of shift. ?
[2023-07-23] MEDS: MELATONIN 3 MG TABLET PO (21:22)
[2023-07-24] VITALS (10 sets, daily range): BP systolic 118–156; BP diastolic 69–87; PULSE 63–98; RESP 16–24; TEMP 36.5–37.1; O2SAT 94–98
[2023-07-24] MEDS: PIPERACILLIN/TAZOBACTAM 3.375 GM in 0.9 % SODIUM CHLORIDE Mini-bag 100 ML IVPB ×2 (00:57→06:29)
[2023-07-24] MEDS: ACETAMINOPHEN 325 MG TABLET PO (05:37)
[2023-07-24 06:18] LABS: Basophils Absolute Auto 0.04 K/uL (0.00-0.30); Basophils Percent Auto 0.4 % (0.0-3.0); Eosinophils Absolute Auto 0.23 K/uL (0.00-0.50); Eosinophils Percent Auto 2.5 % (0.0-7.0); Hematocrit 31.7 % (37.0-53.0); Hemoglobin* 10.8 gm/dL (13.5-17.5); Immature Granulocytes Abs Auto 0.07 K/uL (0.00-0.30); Immature Granulocytes Pct Auto 0.8 %; Lymphocytes Percent Auto 19.4 % (20-44); Mean Corpuscular HGB Conc 34 gm/dL (32-36); Mean Corpuscular Hemoglobin 30 pg (26-34); Mean Corpuscular Volume 87 fL (80-100); Monocytes Percent Auto 13.8 % (0.0-11.0); Neutrophils Absolute Auto 5.81 K/uL (1.7-7.0); Neutrophils Percent Auto 63.1 % (42.0-72.0); Platelet Count* 293 K/uL (140-440); RDW Coefficient of Variation % 13.7 % (11.5-15.5); Red Blood Count 3.65 m/uL (4.30-5.90); White Blood Count* 9.21 K/uL (4.50-11.00)
[2023-07-24 06:23] LABS: Slide Review Reflex No
[2023-07-24] MEDS: 0.9 % SODIUM CHLORIDE 250 ml IV (06:28)
[2023-07-24 06:29] LABS: Chloride* 99 mmol/L (96-114); Sodium* 134 mmol/L (135-149)
[2023-07-24 06:32] LABS: Est. Creatinine Clearance* 46.96; Estimated Glomerular Filt Rate 73 ml/min
[2023-07-24 06:33] LABS: Anion Gap 8 mEq/L (7-15); Blood Urea Nitrogen* 20 mg/dL (7-30); Calcium* 8.5 mg/dL (8.4-10.6); Carbon Dioxide* 27 mmol/L (20-32); Glucose* 113 mg/dL (60-115)
--- NOTE | 2023-07-24 06:41 | PC.NURSE ---
End of shift note [id number]: Pt noted to be alert & oriented x 4 this shift and has been using call light appropriately. Pt noted to urinate every hour at times. Bladder scan was completed after pt voided on toilet and highest PVR of 12 mL was noted. Staff also using urine collection device in toilet to record accurate output. Pt states it is not uncommon for him to have this pattern at home too. IV to L wrist patent and SL. PRN Tylenol administered for c/o headache. Pt has otherwise been denying pain when asked throughout the shift. He is transferring well with SBA using GB and RW. Bruising to L knee and R abdomen have been previously noted. Pt was agreeable to trying PRN Melatonin given at HS. Pt remains on tele with NSR with first degree AV block noted which is not a new finding. VSS and pt has been afebrile throughout the shift.
[2023-07-24 06:43] LABS: INR 2.01 (0.91-1.10); Prothrombin Time 24.3 Seconds
[2023-07-24 06:52] LABS: C Reactive Protein* 14.2 mg/dL (0.5-1.0)
[2023-07-24] MEDS: METOPROLOL SUCCINATE (XL) 50 MG TAB PO (07:57)
[2023-07-24] MEDS: MULTIVITAMIN/MINERALS 1 TABLET 1 TAB PO (07:57)
[2023-07-24] MEDS: ASCORBIC ACID 500 MG TABLET PO (07:57)
[2023-07-24] MEDS: POTASSIUM CHLORIDE 10 MEQ CAPSULE ER 20 MEQ PO (07:57)
[2023-07-24] MEDS: dilTIAZem 240 MG CAP (CD) PO (07:57)
[2023-07-24] MEDS: MAGNESIUM OXIDE 400 MG TABLET PO (07:58)
[2023-07-24] MEDS: POTASSIUM BICARB 25 MEQ EFFERVESCENT TAB PO ×4 (08:07→14:39)
[2023-07-24] MEDS: metOLazone 2.5 MG TABLET PO (08:08)
[2023-07-24] MEDS: SPIRONOLACTONE 25 MG TABLET PO (08:08)
[2023-07-24] MEDS: SODIUM CHLORIDE 0.9 % (FLUSH) 10 ML SYRINGE 5 ML IVF ×2 (08:09→20:53)
--- NOTE | 2023-07-24 10:55 | P.IMPN_ITS ---
Progress Note: A&P Assessment and plan (1) Fever: Problem details: Cause for his fever is uncertain. Initially thought to be urinary infection or pneumonia. Urine and blood cultures are negative so far. Chest abdomen pelvis CT shows no obvious focus of infection. Fever and inflammatory markers are better in the last 2 days. Stop broad-spectrum antibiotics. Status: Acute (2) Frequent falls: Problem details: Patient appears to have gait instability leading to falls and now injuries leading to inability to walk independently. PT and OT to assess. Orthopedics recommends outpatient therapy. Status: Acute (3) Atrial fibrillation: Problem details: Continue rate control and therapeutic anticoagulation Status: Chronic (4) Pneumonia: Problem details: Clinically suspected on admission. Broad-spectrum antibiotics for 5 days. No clinical pneumonia present now Status: Acute (5) Hypokalemia: Problem details: Continues to be difficult to maintain normal potassium. Likely due to metolazone but diarrhea last night also contributing. I have cut metolazone in half to 2.5 mg an added spironolactone 25 mg Status: Acute (6) Sleep apnea: Problem details: On AutoPAP, 4-20cm H2O, changed to 5-18 cm H2O on 01/2023. Sleep study 11/03/05 at [facility] Status: Chronic (7) Rotator cuff arthropathy of left shoulder: Problem details: Exacerbated and inflamed from most recent falls. Status: Acute (8) Prepatellar bursitis, left knee: Problem details: Appears aseptic. Gram stain and cultures pending from aspiration on 07/22. Negative so far. Bruising likely due to trauma from recent falls while on therapeutic warfarin Status: Acute (9) Delirium due to general medical condition: Problem details: Patient appears to have relatively mild hospital-acquired delirium. Episodes occurred earlier in hospitalization but now much better the last 2 days Status: Acute Plan Continue in hospital for evaluation management of above medical problems. Stop IV antibiotics. Replace potassium and monitor potassium. Continue therapy. Addressed diarrhea. Time Spent With Patient Total time spent: Total time spent today is 50 minutes, 40 minutes in coordination of care discussing with patient, and other providers ongoing management of above problems Subjective Date Seen: 07/24/23 Interval history: Wilber Tsang is a 88 year old male who has had several falls recently came in this morning for a fever and left shoulder pain. Wilber is a poor historian, but was able to give me some history on and off which I was then able to verify over the phone with his , Rebecca. He had a fall about a month ago from which he may have injured his left shoulder. After that however his left shoulder and arm were relatively functional. He then fell again about 2 days ago on to a wagon. Since then he has been complaining of left shoulder pain. Since then he has not been able to move his left shoulder at all. It is quite painful His tells me that she checked his temperature this morning and it was mildly elevated at 100.5. Really got to the emergency room his temperature was elevated around 101. He was offered an observation admission and left against medical advice. He returned to the emergency room shortly after leaving as his family was worried about him going home. He denies any recent illnesses, coughs, colds, shortness of breath, or pain in the chest other than this left shoulder pain. He normally walks independently at home. He does have a walker but he does not usually use it. The fall a month ago was a slip on the ice. The recent fall was a loss of balance for unknown reasons. In addition to his left shoulder injury he also has a left knee injury. Radiographs of the shoulder and knee show no obvious fracture. Today he reports no symptoms of illness. He is not aware of fever and chills. He had a fever on admission but maximum temperature overnight was 99.1. He reports some cough which he attributes to a bad cold he had a month ago. No new shortness of breath. No chest pain. No nausea vomiting or abdominal pain. No diarrhea. Does have chronic urinary problems with frequency and urgency. On admission chest x-ray was mildly abnormal suggestive of heart failure though in the presence of cough and fever this may be aspiration pneumonia. Urinalysis notable for hematuria without pyuria. Blood and urine cultures are negative to date and pending. Two days ago patient had episodes where he was a little confused, refusing to cooperate with nursing and blood testing and demanding to go home. When I talk with him and when his talks with him it gets better and he is much more cooperative. Today he seemed more oriented and pleasant and cooperative. He was more articulate and did much better with physical therapy again today. Last night he had quite a bit of diarrhea. No other new concerns. He is not having abdominal pain. Exam Narrative: Exam Narrative: He is alert and appears in no distress. Mood and affect are appropriate. He is quite cooperative and pleasant. Speech is normal. Respirations are clear to auscultation. Cardiovascular: S1, S2, regular rate and rhythm. Abdomen is soft without tenderness or mass. Bowel sounds are active. Left upper extremity moves better today. He has 30? of flexion and abduction with less pain today. Left knee has bruising and improvement in the swelling. No erythema. 2+ edema in both ankles. Const: Vital Signs, click to edit/add: Vital Signs - 24 hr 07/23/23 11:00 07/23/23 15:00 07/23/23 15:00 Temperature 98.2 F 99.5 F Pulse Rate Pulse Rate [Right Pulse Oximeter] 84 74 Respiratory Rate 20 20 20 Blood Pressure [Le ft Arm] Blood Pressure [Ri ght Arm] 102/72 122/70 Pulse Oximetry 96 94 94 Oxygen Delivery Me thod Room Air Room Air Room Air 07/23/23 18:47 07/23/23 19:58 07/23/23 23:00 Temperature 98.1 F Pulse Rate 72 Pulse Rate [Right Pulse Oximeter] 71 60 Respiratory Rate 18 16 Blood Pressure [Le ft Arm] Blood Pressure [Ri ght Arm] 138/82 Pulse Oximetry 96 Oxygen Delivery Me thod Room Air 07/23/23 23:00 07/23/23 23:31 07/23/23 23:31 Temperature 98.0 F Pulse Rate 62 Pulse Rate [Right Pulse Oximeter] 60 Respiratory Rate 16 16 Blood Pressure [Le ft Arm] Blood Pressure [Ri ght Arm] 121/66 Pulse Oximetry 96 96 Oxygen Delivery Me thod Room Air Room Air 07/24/23 02:52 07/24/23 07:00 07/24/23 07:00 Temperature 98.2 F 98.0 F Pulse Rate Pulse Rate [Right Pulse Oximeter] 68 98 Respiratory Rate 16 24 Blood Pressure [Le ft Arm] 118/69 Blood Pressure [Ri ght Arm] 118/75 Pulse Oximetry 95 95 95 Oxygen Delivery Me thod Room Air Room Air Room Air 07/24/23 07:43 Temperature Pulse Rate 69 Pulse Rate [Right Pulse Oximeter] Respiratory Rate Blood Pressure [Le ft Arm] Blood Pressure [Ri ght Arm] Pulse Oximetry Oxygen Delivery Me thod Documenting provider has reviewed patient's vital signs: yes Labs Labs: Laboratory Results - last 24 hr 07/22/23 07/24/23 12:15 05:48 WBC 9.21 RBC 3.65 L Hgb 10.8 L Hct 31.7 L MCV 87 MCH 30 MCHC 34 RDW Coeff of Jayson 13.7 Plt Count 293 Neut % (Auto) 63.1 Lymph % (Auto) 19.4 L Lawrence % (Auto) 13.8 H Eos % (Auto) 2.5 Baso % (Auto) 0.4 Neut # (Auto) 5.81 Lymph # (Auto) 1.80 Lawrence # (Auto) 1.30 H Eos # (Auto) 0.23 Baso # (Auto) 0.04 Abs Immat Gran (auto) 0.07 Imm/Tot Granulo (auto) 0.8 INR 2.01 H Sodium 134 L Potassium 3.0 L Chloride 99 Carbon Dioxide 27 Anion Gap 8 BUN 20 Creatinine 1.0 Estimated Creat Clear 46.96 Estimated GFR 73 Glucose 113 Calcium 8.5 C-Reactive Protein 14.2 H Urine L. pneumophilia Ag Cancelled Urine Strep pneumoniae Ag Cancelled
[2023-07-24] MEDS: WARFARIN 5 MG TABLET PO (17:21)
[2023-07-24 19:25] LABS: Potassium* 3.5 mmol/L (3.6-5.1)
--- NOTE | 2023-07-24 19:31 | PC.NURSE ---
End of shift [id number] - Pt alert, oriented x 4, cooperative. Pt up to bathroom and ambulating in halls with standby assistance. Pt denies pain, SOB, nausea, vomiting. Tolerating RA, regular diet, fluids. Loose stools noted during shift, MD aware, lab results pending. Family at bedside. No hospital induced delirium noted, VSS, afebrile. Pt appears to be resting comfortably at end of shift.
[2023-07-24] MEDS: MELATONIN 3 MG TABLET PO (20:53)
[2023-07-24 21:02] LABS: CDIFFEPI 027 Presumptive Negative (Negative)
[2023-07-24 21:03] LABS: C.Difficile Negative (Negative)
[2023-07-25 03:36] VITALS: BP 115/76; PULSE 65; RESP 16; TEMP 36.8; O2SAT 93
[2023-07-25 06:34] LABS: Basophils Absolute Auto 0.04 K/uL (0.00-0.30); Basophils Percent Auto 0.4 % (0.0-3.0); Eosinophils Percent Auto 3.3 % (0.0-7.0); Hematocrit 33.7 % (37.0-53.0); Hemoglobin* 11.3 gm/dL (13.5-17.5); Immature Granulocytes Abs Auto 0.03 K/uL (0.00-0.30); Immature Granulocytes Pct Auto 0.3 %; Lymphocytes Absolute Auto 2.17 K/uL (0.90-2.90); Mean Corpuscular HGB Conc 34 gm/dL (32-36); Mean Corpuscular Hemoglobin 29 pg (26-34); Mean Corpuscular Volume 87 fL (80-100); Monocytes Percent Auto 12.6 % (0.0-11.0); Neutrophils Absolute Auto 5.38 K/uL (1.7-7.0); Neutrophils Percent Auto 59.4 % (42.0-72.0); Platelet Count* 329 K/uL (140-440); RDW Coefficient of Variation % 13.7 % (11.5-15.5); Red Blood Count 3.86 m/uL (4.30-5.90); White Blood Count* 9.06 K/uL (4.50-11.00)
[2023-07-25 06:41] LABS: Slide Review Reflex No
--- NOTE | 2023-07-25 06:42 | PC.NURSE ---
End of shift note [id number]: Pt continues to transfer and ambulate in room with SBA using GB and walker. Pt has been denying pain when asked. IV to L wrist patent and SL. VSS and pt has been afebrile throughout the shift. Day RN sent stool sample to lab with negative C. diff results noted. Bed alarm utilized as pt has been forgetting to use call light when needing to toilet at times throughout the shift. Pt is also fall risk due to hx of frequent falls before admission to hospital. No loose stool noted this shift.
[2023-07-25 06:53] LABS: INR 1.89 (0.91-1.10); Prothrombin Time 23.1 Seconds
[2023-07-25 06:55] LABS: Chloride* 97 mmol/L (96-114); Potassium* 3.2 mmol/L (3.6-5.1); Sodium* 133 mmol/L (135-149)
[2023-07-25 06:58] LABS: Creatinine* 0.9 mg/dL (0.5-1.5); Est. Creatinine Clearance* 46.96; Estimated Glomerular Filt Rate 83 ml/min
[2023-07-25 06:59] LABS: Anion Gap 10 mEq/L (7-15); Blood Urea Nitrogen* 18 mg/dL (7-30); Calcium* 9.2 mg/dL (8.4-10.6); Carbon Dioxide* 26 mmol/L (20-32); Glucose* 114 mg/dL (60-115)
[2023-07-25 07:13] LABS: C Reactive Protein* 10.9 mg/dL (0.5-1.0)
[2023-07-25 07:24] VITALS: PULSE 65
[2023-07-25 07:50] VITALS: BP 152/88; PULSE 65; PULSE 77; RESP 16; TEMP 36.7; O2SAT 93
[2023-07-25] MEDS: dilTIAZem 240 MG CAP (CD) PO (09:05)
[2023-07-25] MEDS: METOPROLOL SUCCINATE (XL) 50 MG TAB PO (09:05)
[2023-07-25] MEDS: ASCORBIC ACID 500 MG TABLET PO (09:05)
[2023-07-25] MEDS: MULTIVITAMIN/MINERALS 1 TABLET 1 TAB PO (09:05)
[2023-07-25] MEDS: MAGNESIUM OXIDE 400 MG TABLET PO (09:05)
[2023-07-25] MEDS: SODIUM CHLORIDE 0.9 % (FLUSH) 10 ML SYRINGE 5 ML IVF (09:07)
[2023-07-25] MEDS: POTASSIUM CHLORIDE 10 MEQ CAPSULE ER 20 MEQ PO (09:07)
[2023-07-25] MEDS: SPIRONOLACTONE 25 MG TABLET PO (09:07)
[2023-07-25] MEDS: metOLazone 2.5 MG TABLET PO (09:08)
--- NOTE | 2023-07-25 10:05 | PM.DS1 ---
DS: Providers Provider Date Seen: 07/25/23 Date of admission: 07/22/23 12:27 Primary care physician: Rafa Barth MD Admitting Clinician: Rebecca Mcmahan MD Consults: 07/20/23 20:13 Consult to Occupational Therapy [CONS] Routine Comment: Reason(s) for OT Consult:: Evaluate and Treat Any Restrictions?:: No Restrictions Consult to Physical Therapy [CONS] Routine Comment: Reason(s) for PT Consult:: Evaluate and Treat Any Restrictions?:: No Restrictions Consult to Electronic Components Assembler [CONS] Routine Comment: Reason for Consult:: Discharge Planning Needs 07/20/23 21:50 Consult to Occupational Therapy [CONS] Routine Comment: Reason(s) for OT Consult:: Difficulty Managing ADLs Any Restrictions?:: No Restrictions Consult to Physical Therapy [CONS] Routine Comment: Reason(s) for PT Consult:: Recent Falls Any Restrictions?:: No Restrictions 07/21/23 11:20 Consult to Physician [CONS] Routine Comment: Consulting Provider: Macario Sharp Has provider been notified: Yes Attending Physician on discharge: Simona Urbano [facility], [facility] Hospitalist Date of Discharge: 07/25/23 DS: Diagnosis Discharge Diagnosis (1) Fever: Status: Acute Problem details: Cause for his fever is uncertain. Initially thought to be urinary infection or pneumonia. Urine and blood cultures are negative so far. Chest abdomen pelvis CT shows no obvious focus of infection. Fever and inflammatory markers are better in the last 2 days. Stop broad-spectrum antibiotics. (2) Frequent falls: Status: Acute Problem details: Patient appears to have gait instability leading to falls and now injuries leading to inability to walk independently. PT and OT to assess. Orthopedics recommends outpatient therapy. (3) Atrial fibrillation: Status: Chronic Problem details: Continue rate control and therapeutic anticoagulation (4) Pneumonia: Status: Acute Problem details: Clinically suspected on admission. Broad-spectrum antibiotics for 5 days. No clinical pneumonia present now (5) Hypokalemia: Status: Acute Problem details: Continues to be difficult to maintain normal potassium. Likely due to metolazone but diarrhea last night also contributing. I have cut metolazone in half to 2.5 mg an added spironolactone 25 mg (6) Sleep apnea: Status: Chronic Problem details: On AutoPAP, 4-20cm H2O, changed to 5-18 cm H2O on 01/2023. Sleep study 11/03/05 at [facility] (7) Rotator cuff arthropathy of left shoulder: Status: Acute Problem details: Exacerbated and inflamed from most recent falls. (8) Prepatellar bursitis, left knee: Status: Acute Problem details: Appears aseptic. Gram stain and cultures pending from aspiration on 07/22. Negative so far. Bruising likely due to trauma from recent falls while on therapeutic warfarin (9) Delirium due to general medical condition: Status: Acute Problem details: Patient appears to have relatively mild hospital-acquired delirium. Episodes occurred earlier in hospitalization but now much better the last 2 days DS: Summary Hospital Course Hospital Course: [age] year old male past medical history significant for atrial fibrillation on chronic anticoagulation, edema, sleep apnea, hypertension, hyperlipidemia, DJD was admitted to the medical floor for following several falls with a fever and left shoulder pain. Course of care and details as noted above. On admission, patient was started on antibiotics for fever of unknown source, suspected possible community-acquired pneumonia. He completed a 5 day course of antibiotics. No further sources for infection were found. Patient remained afebrile prior to discharge. In setting of recent frequent falls, patient was noted to have a prepatellar bursitis which was aspirated, found to be aseptic. PT and OT were consulted, recommending outpatient PT and OT upon returning home. Paperwork has been completed for this. Initially, patient was noted to have what was suspected to be a mild hospital acquired delirium. This did clear prior to discharge. Remainder of chronic medical comorbidities were monitored and managed with home medications. Status at Discharge Functional status at discharge: uses cane/walker Overall status at discharge: patient is progressing back to baseline Time Spent with Patient Time attestation: Total time spent providing and/or coordinating discharge services: Time spent: Greater than 30 minutes Exam Narrative: Exam Narrative: PHYSICAL EXAM General: Pleasant, conversant, NAD Cardiovascular: RRR Pulmonary: No dyspnea Neurological: Alert, answering questions appropriately Skin: Warm, dry. Const: Vital Signs, click to edit/add: Vital Signs - 24 hr 07/24/23 11:00 07/24/23 15:00 07/24/23 15:00 Temperature 97.7 F 98.8 F Pulse Rate Pulse Rate [Right Pulse Oximeter] 64 72 Respiratory Rate 20 20 20 Blood Pressure [Le ft Arm] 130/72 140/83 H Blood Pressure [Ri ght Arm] Pulse Oximetry 98 95 95 Oxygen Delivery Me thod Room Air Room Air Room Air 07/24/23 15:00 07/24/23 19:43 07/24/23 23:00 Temperature 98.6 F Pulse Rate 70 Pulse Rate [Right Pulse Oximeter] 72 69 Respiratory Rate 16 16 Blood Pressure [Le ft Arm] 156/87 H Blood Pressure [Ri ght Arm] Pulse Oximetry 94 Oxygen Delivery Me thod Room Air 07/24/23 23:02 07/24/23 23:32 07/24/23 23:33 Temperature 98.6 F Pulse Rate 63 Pulse Rate [Right Pulse Oximeter] 69 Respiratory Rate 18 16 Blood Pressure [Le ft Arm] Blood Pressure [Ri ght Arm] 149/86 H Pulse Oximetry 94 94 Oxygen Delivery Me thod Room Air Room Air 07/25/23 03:36 07/25/23 07:24 07/25/23 07:50 Temperature 98.3 F Pulse Rate 65 Pulse Rate [Right Pulse Oximeter] 65 65 Respiratory Rate 16 16 Blood Pressure [Le ft Arm] Blood Pressure [Ri ght Arm] 115/76 Pulse Oximetry 93 Oxygen Delivery Me thod Room Air 07/25/23 07:50 07/25/23 07:50 Temperature 98.1 F Pulse Rate Pulse Rate [Right Pulse Oximeter] 77 Respiratory Rate 16 16 Blood Pressure [Le ft Arm] 152/88 H Blood Pressure [Ri ght Arm] Pulse Oximetry 93 93 Oxygen Delivery Me thod Room Air Room Air DS: Data Data Completed and Pending Completed studies during hospitalization: BC x2 negative, UC negative, left knee aspiration unremarkable, MRSA negative Labs on day of discharge: Labs from last 24 hours 07/25/23 07/24/23 07/24/23 06:16 19:10 18:20 WBC 9.06 RBC 3.86 L Hgb 11.3 L Hct 33.7 L MCV 87 MCH 29 MCHC 34 RDW Coeff of Jayson 13.7 Plt Count 329 Neut % (Auto) 59.4 Lymph % (Auto) 24.0 [place] % (Auto) 12.6 H Eos % (Auto) 3.3 Baso % (Auto) 0.4 Neut # (Auto) 5.38 Lymph # (Auto) 2.17 [place] # (Auto) 1.10 H Eos # (Auto) 0.30 Baso # (Auto) 0.04 Abs Immat Gran (auto) 0.03 Imm/Tot Granulo (auto) 0.3 INR 1.89 H Sodium 133 L Potassium 3.2 L 3.5 L Chloride 97 Carbon Dioxide 26 Anion Gap 10 BUN 18 Creatinine 0.9 Estimated Creat Clear 46.96 Estimated GFR 83 Glucose 114 Calcium 9.2 C-Reactive Protein 10.9 H Stl C. diff Tox B Gene Negative Stl C. diff [id number] Presumptive Negative Preliminary micro results at discharge 07/22/23 12:20 Aerobic Culture - Preliminary Knee,Left 07/22/23 16:55 Blood Culture - Preliminary Blood NO GROWTH AFTER 48 HOURS 07/22/23 16:50 Blood Culture - Preliminary Blood NO GROWTH AFTER [address] Chest/Ab/Pelvis: Attestation: I have reviewed the pertinent imaging results. Radiologist's impression: CT chest, abdomen and pelvis acquired with 113 mL Isovue 370 IV contrast. COMPARISON: 11/23/2022 and 05/19/2022 abdomen pelvis CTs, 05/24/[address] FINDINGS: CHEST: Cardiovascular structures: Heart size is normal. 5.1 cm ascending aortic aneurysm is unchanged. Mediastinum and azar: No mass or adenopathy. Lungs and pleura: Somewhat shallow inspiration with mild dependent atelectasis. No suspicious nodule or consolidation. Chest wall and axilla: No mass or adenopathy. Bones: No suspicious bone lesions. Unremarkable for age. ABDOMEN AND PELVIS: Liver: Mild steatosis. Gallbladder and bile ducts: Unremarkable. Pancreas: Unremarkable. Spleen: Unremarkable. Adrenal glands: Unremarkable. Kidneys: Bilateral cysts GI tract: Unremarkable. Vascular structures: Unremarkable. Lymph nodes: Unremarkable. Miscellaneous: Small fat containing left inguinal hernia. No free air or significant free fluid. Pelvic Organs: Unremarkable. Bones: Left hip arthroplasty. Lumbar spine fusion. IMPRESSION: 1. No acute findings. No cause for fever identified. 2. Hepatic steatosis. 3. Stable 5.1 cm ascending thoracic aortic aneurysm. left knee plain film: Attestation: I have reviewed the pertinent imaging results. Radiologist's impression: Findings: Chronic fullness of the prepatellar soft tissues. Patellofemoral spurring. No joint effusion. Vascular calcifications. Chondrocalcinosis. No fracture. Impression: No sign of acute injury or synovitis. CT shoulder: Attestation: I have reviewed the pertinent imaging results. Radiologist's impression: Study:?CT Extremity Left SHOULDER W/O-07/20/2023 11:48:11 AM Ordering Physician:CLAUDIA PARMAR Final Report: Indication: Fall, pain. Technique: Routine noncontrast CT left shoulder. Please note that all CT scans at this facility use dose modulation, iterative reconstruction, and/or weight-based dosing when appropriate to reduce radiation dose to as low as reasonably achievable. Comparison: X-rays 07/20/2023 Findings: There is no acute fracture. The alignment is normal. Degenerative joint disease. Intact visualized ribs. Sequela of granulomatous disease. No soft tissue mass. Joint effusion is present related to the degenerative joint disease. Impression: No sign of acute fracture. Elbow x-ray: Attestation: I have reviewed the pertinent imaging results. Radiologist's impression: Final Report: Indication: Injury and pain Technique: Left elbow 3 views Comparison: None Findings: Degenerative changes are present. There is no fracture. The alignment is normal. No joint effusion. CT scan - head: Attestation: I have reviewed the pertinent imaging results. Radiologist's impression: INDICATION: Fall COMPARISON: none TECHNIQUE: A CT volumetric acquisition was performed of the brain without IV contrast. Please note that all CT scans at this facility use dose modulation, iterative reconstruction, and/or weight-based dosing when appropriate to reduce radiation dose to as low as reasonably achievable. FINDINGS: Generalized cortical atrophy is present. Vascular calcifications noted. No intracranial hemorrhage or mass effect. No midline shift or hydrocephalus. Patchy opacification of the ethmoid sinuses and maxillary sinuses. No fracture. IMPRESSION: No intracranial hemorrhage. Chest x-ray: Attestation: I have reviewed the pertinent imaging results. Radiologist's impression: Chest 2 views COMPARISON: 02/20/2019 FINDINGS: Reticulonodular densities are present within both lung bases. Cardiomegaly. Aortic tortuosity. No pleural effusion. No vertebral body compression fracture. IMPRESSION: CHF suspected Shoulder x-ray: Attestation: I have reviewed the pertinent imaging results. Radiologist's impression: Technique: Left shoulder 3 views. Comparison: None. Findings: Type 2 acromion is present. Chronic ossicle adjacent to the lateral acromion. Narrowing and spurring at the acromioclavicular and glenohumeral joints. No acute fracture. Impression: No sign of acute injury. Dictated by Jas Olvera MD @ 07/20/2023 10:37:27 AM (Electronic Signature) Discharge Plan Discharge Disposition: Home, Self-Care Date of Admission: 07/22/23 12:27 Attending Provider on Discharge: Simona Urbano Consulting Providers: Macario Sharp Primary Care Provider: Rafa Barth Condition: Improved Anticipated Discharge Date/Time: 07/25/23 09:48 Discharge Medications: New metolazone 2.5 mg Tablet 2.5 mg PO DAILY Qty: 30 0RF spironolactone 25 mg Tablet 25 mg PO DAILY Qty: 30 0RF magnesium oxide 400 mg (241.3 mg magnesium) Tablet 400 mg PO DAILY Qty: 30 0RF Continued multivitamin [Multiple Vitamins] Tablet 1 tab PO QAM gabapentin 100 mg capsule 200 mg PO QPM PRN ascorbic acid (vitamin C) [Vitamin C] 250 mg tablet 500 mg PO DAILY cholecalciferol (vitamin D3) 25 mcg (1,000 unit) capsule 25 mcg PO DAILY atorvastatin 20 mg tablet 20 mg PO QPM warfarin 5 mg tablet See Rx Instructions PO DAILY Qty: 135 4RF Protocol: Dose Management Condition: Sunday Dose/Route: 7.5 mg Instruction: 1.5 x 5 mg tablets Condition: Sunday Dose/Route: 7.5 mg Instruction: 1.5 x 5 mg tablets Condition: Sunday Dose/Route: 7.5 mg Instruction: 1.5 x 5 mg tablets Condition: Sunday Dose/Route: 7.5 mg Instruction: 1.5 x 5 mg tablets Condition: Dose/Route: 5 mg Instruction: 1 x 5 mg tablet Condition: Sunday Dose/Route: 7.5 mg Instruction: 1.5 x 5 mg tablets Condition: Sunday Dose/Route: 7.5 mg Instruction: 1.5 x 5 mg tablets Protocol Text: Adjustment Start Date: 06/28/23 INR Value: 2.4 INR Date: 06/28/23 Recheck Date: 07/28/23 Rx Instructions: 5 mg QD except 7.5 mg QWed orally daily; Greene 5 MG, M 5 MG, Tu 5 MG, W 7.5 MG, Th 5 MG, F 5 MG, Sa 5 MG metoprolol succinate 50 mg tablet extended release 24 hr 50 mg PO DAILY Qty: 90 2RF amoxicillin 500 mg capsule 2,000 mg PO ONCE Qty: 8 1RF diltiazem HCl 240 mg capsule,extended release 24hr See Rx Instructions .ROUTE .COMPLEX Qty: 90 1RF Dose Instruction: TAKE ONE CAPSULE BY MOUTH ONCE DAILY Rx Instructions: TAKE ONE CAPSULE BY MOUTH ONCE DAILY Changed potassium chloride 10 mEq capsule, extended release 20 meq PO DAILY Qty: 60 0RF Discontinued metolazone 5 mg tablet 5 mg PO DAILY Discharge Orders: Discharge Order (Routine); Ordered 07/25/23 Ordered By: Simona Urbano Patient Education: Hypokalemia (GEN), Fall Prevention for Older Adults (GEN) Additional Instructions: Your potassium is 3.2 today. We have increased your potassium to 20 mEq - TAKE THIS TWICE DAILY FOR 5 DAYS,then on day six, take 20 mEq ONCE daily until your PCP can recheck your potassium level. We have cut your metolazone dose in half to 2.5 mg once daily. We have added spironolactone to be taken once daily. You do not need any more antibiotics. We will order outpatient PT and OT for you. Follow-up with your PCP early next week. Activity Level: Use Walker Activity Detail: Outpatient PT/OT Discharge Diet: Regular Follow Up Appointments: Rafa Barth MD [Primary Care Provider] - 07/31/23 (Post hospital follow up, hypokalemia, recheck potassium, falls) Forms: [facility] Info Instructions
--- NOTE | 2023-07-25 11:30 | PC.NURSE ---
Discharge. pt is pleasant. he is alert x1. no pain in bed but he has pain in left leg. SL to L wrist patent and SL. Pt is also fall risk due to hx of frequent falls. No loose stool noted this shift. went over discharge with pt and family, went over medications, appointments, instructions and educations. pt went over and signed personal belonging sheet. pt SL was d/c intact. pt got a w/c ride out with all equipment and paperwork.
== END 2023-07-25 11:00 | disposition home or self-care (01) | DRG 194 ==
LOC: ED 18:49 → MEDSURG 18:51
PROVIDERS: Family Medicine; Admitting Provider Family Medicine; Emergency Provider Family Medicine; PCP Family Medicine; Visit Provider Family Medicine
DX: J18.9 Pneumonia, unspecified organism; I48.20 Chronic atrial fibrillation, unspecified; M75.102 Unspecified rotator cuff tear or rupture of left shoulder, not specified as traumatic; R41.0 Disorientation, unspecified; R31.9 Hematuria, unspecified; E87.6 Hypokalemia; Z91.81 History of falling; G47.30 Sleep apnea, unspecified; I71.21 Aneurysm of the ascending aorta, without rupture; G62.9 Polyneuropathy, unspecified; I44.0 Atrioventricular block, first degree; R26.89 Other abnormalities of gait and mobility; E78.5 Hyperlipidemia, unspecified
CPT/HCPCS: 36415; 51798; 70450; 71046; 71260; 73030; 73080; 73200; 73562; 74177; 80048; 80076; 81001; 83605; 83735; 83880; 84132; 84145; 84484; 85025; 85610; 85651; 86140; 87040; 87070; 87075; 87081; 87086; 87205; 87449; 87493; 87631; 87899; 89051; 93005; 94761; 97110; 97116; 97161; 97165; 97530; 97535; 99284; 99285; G0378; A9153; A9270; J0696; J2270; J2543; J3370; J3475; J3480; J7030; J7050; Q9967

== ENCOUNTER 2023-08-01 10:54 | Outpatient (CLI) | payer MEDICARE, BC, SELFPAY | END 2023-08-01 10:55 | disposition home or self-care (01) | PROVIDERS: PCP Family Medicine; Visit Provider Family Medicine | DX: R60.0 Localized edema (principal); Z12.5 Encounter for screening for malignant neoplasm of prostate | CPT/HCPCS: 80048; G0103 ==

== ENCOUNTER 2023-09-16 17:31 | Emergency (ER) | payer MEDICARE, BC, SELFPAY ==
[2023-09-16] VITALS (12 sets, daily range): BP systolic 125–172; BP diastolic 84–98; PULSE 84–88; RESP 14; TEMP 37.1; O2SAT 95–96; BMI 39.2
--- NOTE | 2023-09-16 17:45 | ED_ITS ---
HPI - Fall General Time Seen by Provider: 17:45 Date Seen: 09/16/23 Chief Complaint: Fall/Minor Trauma Stated Complaint: Swollen R hand. Time Seen by Provider: 09/16/23 17:44 Source: patient and RN notes reviewed Mode of arrival: wheelchair Limitations: no limitations History of Present Illness HPI Narrative: This 88-year-old male is brought back by wheelchair after presenting to the ER of his own accord with right hand pain and swelling. He had this injury yesterday, has been icing. Pain has been increasing in his right hand and wrist throughout the day. He is anticoagulated on Coumadin for atrial fibrillation, he states an INR 1-2 weeks ago was 2.9. He took 2 extra-strength Tylenol this morning, 1 at 3:00 p.m. for the pain. The pain has just been increasing, the swelling increasing and he decided to come in. He fell yesterday morning, slipped on the last step and went down on the concrete with his hand. He denies hitting his head, no headache, no loss of consciousness, no neck or back pain. He is not experiencing any chest pain no difficulty breathing, no shortness of breath. No abdominal symptoms. His left arm in both of his legs were not injured. MD complaint: fall Loss of consciousness: No Prolonged down time: no Symptoms prior to fall: none Context: tripped/slipped Related Data Home Medications Medication Instructions Recorded Confirmed multivitamin (Multiple Vitamins 1 tab PO QAM 12/20/21 09/16/23 tablet) ascorbic acid (vitamin C) 250 mg 500 mg PO DAILY 07/20/23 08/08/23 tablet (Vitamin C) cholecalciferol (vitamin D3) 25 25 mcg PO DAILY 07/20/23 09/16/23 mcg (1,000 unit) capsule diltiazem HCl 120 mg 120 mg PO DAILY 09/16/23 09/16/23 capsule,extended release 24 hr metolazone 2.5 mg tablet 5 mg PO DAILY 09/16/23 09/16/23 Previous Rx's Medication Instructions Recorded warfarin 5 mg tablet See Rx Instructions PO DAILY #135 11/07/22 tabs metoprolol succinate 50 mg 50 mg PO DAILY #90 tabs 12/21/22 tablet,extended release 24 hr diltiazem HCl 240 mg See Rx Instructions .Route 07/10/23 capsule,extended release 24 hr .COMPLEX #90 caps potassium chloride 10 mEq 20 meq (2 x 10 mEq) PO DAILY #60 07/25/23 capsule,extended release caps spironolactone 25 mg tablet 25 mg PO DAILY #30 tabs 07/25/23 atorvastatin 20 mg tablet 20 mg PO QPM #90 tabs 08/01/23 spironolactone 25 mg tablet 50 mg (2 x 25 mg) PO QDAY #180 tabs 08/01/23 tamsulosin 0.4 mg capsule 0.4 mg PO QDAY #90 caps 08/01/23 finasteride 5 mg tablet 5 mg PO QDAY #90 tabs 08/02/23 Allergies Allergy/AdvReac Type Severity Reaction Status Date / Time No Known Allergies Allergy Verified 08/08/23 10:39 Review of Systems Status of ROS: Reports: 6 or more systems reviewed and unremarkable except as noted in History and below [facility] Medical History Methicillin resistant Staphylococcus aureus culture positive (12/2014) ?Z22.322 - Carrier or suspected carrier of Methicillin resistant Staphylococcus aureus (ICD-10) Frequent falls ?R29.6 - Repeated falls (ICD-10) Heterotopic ossification of bone ?M89.8X9 - Other specified disorders of bone, unspecified site (ICD-10) Basal cell carcinoma (BCC) ?C44.91 - Basal cell carcinoma of skin, unspecified (ICD-10) 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/13) ?H93.13 - Tinnitus, bilateral (ICD-10) Spinal stenosis of lumbar region without neurogenic claudication (04/17/17) ?M48.061 - Spinal stenosis, lumbar region without neurogenic claudication (ICD-10) Sensorineural hearing loss (SNHL) of both ears (07/29/13) ?H90.3 - Sensorineural hearing loss, bilateral (ICD-10) Seborrheic keratosis ?L82.1 - Other seborrheic keratosis (ICD-10) Seborrheic dermatitis ?L21.9 - Seborrheic dermatitis, unspecified (ICD-10) Sciatica ?M54.30 - Sciatica, unspecified side (ICD-10) Pulmonary nodules ?R91.8 - Other nonspecific abnormal finding of lung field (ICD-10) Insomnia, unspecified (01/01/09) ?G47.00 - Insomnia, unspecified (ICD-10) Erysipelas ?A46 - Erysipelas (ICD-10) Diverticulosis (03/02/10) ?K57.90 - Diverticulosis of intestine, part unspecified, without perforation or abscess without bleeding (ICD-10) Colon polyp (01/01/09) ?K63.5 - Polyp of colon (ICD-10) 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) ?K22.70 - Peter's esophagus without dysplasia (ICD-10) Surgical History Status post transurethral resection of prostate ?Z90.79 - Acquired absence of other genital organ(s) (ICD-10) Status post tonsillectomy and adenoidectomy ?Z90.89 - Acquired absence of other organs (ICD-10) Status post arthroscopy of right knee (01/01/09) ?Z98.890 - Other specified postprocedural states (ICD-10) History of fusion of lumbar spine ?Z98.1 - Arthrodesis status (ICD-10) History of blepharoplasty ?Z98.890 - Other specified postprocedural states (ICD-10) History of arthroplasty of left hip ?Z98.890 - Other specified postprocedural states (ICD-10) Social History Narrative: Lives independently with his , Rebecca. Wishes to be full code. What is your current living situation?: I presently have a place to live Problems where you live: no known problems Problems where you live details: NA In the past 12 months, utilities in danger of being shut off: no In past 12 months, lack of transportation kept you from medical appts, meetings, work, or getting things needed for daily living: no In the past 12 mos, have been you worried that your food would run out before you had money to buy more?: never true In the past 12 mos, the food you bought just didn't last and you didn't have money to buy more?: never true Highest level of school completed/degree received: high school graduate Smoking Status: Former smoker Do you use any of these nicotine containing products: None Second hand tobacco smoke exposure: No How often do you have a drink containing alcohol: monthly or less How many standard drinks containing alcohol do you have on a typical day: 1 or 2 How often do you have six or more drinks on one occasion: Never AUDIT-C Alcohol total score: 1 Non-prescribed substance use: denies use Caffeine: Yes How often does anyone, including family, friends and others, physically hurt you : never How often does anyone, including family, friends and others, insult or talk down to you: never How often does anyone, including family, friends and others, threaten you with harm: never How often does anyone, including family, friends and others, scream or curse at you: never Little interest or pleasure in doing things: more than half the days Feeling down, depressed, or hopeless: several days service: Yes Exam Const: Vital Signs, click to edit/add: Vital Signs - 24 hr 09/16/23 17:35 09/16/23 17:41 09/16/23 17:42 Temperature 98.7 F Pulse Rate 86 85 Pulse Rate [Pulse Oximeter] 85 Respiratory Rate 14 Blood Pressure 172/95 H Blood Pressure [Le ft Upper Arm] 172/95 H Pulse Oximetry 96 96 96 Oxygen Delivery Me thod Room Air 09/16/23 17:45 09/16/23 18:00 09/16/23 18:13 Temperature Pulse Rate 84 85 87 Pulse Rate [Pulse Oximeter] Respiratory Rate Blood Pressure 125/84 Blood Pressure [Le ft Upper Arm] Pulse Oximetry 96 95 95 Oxygen Delivery Me thod 09/16/23 18:15 09/16/23 18:30 09/16/23 18:32 Temperature Pulse Rate 87 88 88 Pulse Rate [Pulse Oximeter] Respiratory Rate Blood Pressure 151/97 H Blood Pressure [Le ft Upper Arm] Pulse Oximetry 96 95 95 Oxygen Delivery Me thod 09/16/23 18:45 Temperature Pulse Rate 88 Pulse Rate [Pulse Oximeter] Respiratory Rate Blood Pressure Blood Pressure [Le ft Upper Arm] Pulse Oximetry 96 Oxygen Delivery Me thod This is a very pleasant 88-year-old male seen in exam room 3, he is alert, interactive, no apparent distress. Breathing easy on room air, able to speak in complete sentences. Lungs are clear, CV sounds regular, soft systolic murmur heard, normal S1-S2, no S3-S4. Abdomen is soft, nontender, no masses noted. His face and scalp are atraumatic. No midline tenderness of his neck. Has no complaints within his left arm or either of his legs for acute trauma. His right hand and wrist up into the mid forearm are ecchymotic and swollen. There is some mild warmth. He has so much swelling on the dorsum of his hand that he states it hurts to fully extend his fingers. He denies any numbness or tingling of these fingers, there is normal cap refill, the end of his digits are warm, nail bed seemed to have good coloration. He is very ecchymotic and swollen throughout his wrist. There was so much ecchymosis and swelling throughout the wrist and dorsum of the hand and swelling into all of his 5 digits on this hand that difficult to assess any pinpoint pain. He had superficial abrasion on the distal dorsal right 4th finger, has a bandage on the proximal phalanx of the 5th finger. No active bleeding anywhere at this time. Documenting provider has reviewed patient's vital signs: yes Course Course ED Course: We will obtain x-rays of his wrist and hand to see if there is underlying fracture. Consultations Consultation #1: Did review with Lucille MARIN from orthopedics. Will place splint as reviewed and have him follow up with orthopedics this week. This was reviewed with the patient. They did want to know if this would require surgery. I reviewed with them in most cases, yes, surgery would be done. Ultimately, the orthopedist will review this with them. We did discuss agent morbidity and how that can confound surgical cases. Patient understands, he understands that the orthopedist will ultimately talk to them about this decision making. Time: 18:30 Vital Signs Vital signs: Initial Vital Signs Temperature 98.7 F 09/16/23 17:35 Temperature Source Temporal Artery Scan 09/16/23 17:35 Pulse Rate 85 09/16/23 17:35 Pulse Rhythm Regular 09/16/23 17:35 Respiratory Rate 14 09/16/23 17:35 Blood Pressure 172/95 H 09/16/23 17:35 Blood Pressure Mean 120 H 09/16/23 17:35 Blood Pressure Position Supine 09/16/23 17:35 Pulse Oximetry 96 09/16/23 17:35 Oxygen Delivery Method Room Air 09/16/23 17:35 Vital Signs Temperature 98.7 F 09/16/23 17:35 Pulse Rate 85 09/16/23 17:35 Respiratory Rate 14 09/16/23 17:35 Blood Pressure 172/95 H 09/16/23 17:35 Pulse Oximetry 96 09/16/23 17:35 Oxygen Delivery Method Room Air 09/16/23 17:35 Temperature 98.7 F 09/16/23 17:35 Pulse Rate 88 09/16/23 18:45 Respiratory Rate 14 09/16/23 17:35 Blood Pressure 151/97 H 09/16/23 18:32 Pulse Oximetry 96 09/16/23 18:45 Oxygen Delivery Method Room Air 09/16/23 17:35 MDM - Fall Imaging Data XR right hand and wrist: Attestation: I have reviewed the pertinent imaging results. My impression: Oblique mildly comminuted 5th metatarsal fracture on my preliminary review. Radiologist's impression: Patient: KRISTINE SIMPSON Facility:?[facility] Patient ID:?[id number] Site Patient ID:?[id number]. Site :?[id number] Study:?XRay Extremity Right HAND 3V-09/16/2023 6:10:09 PM Ordering Physician:FATOUMATA Final Report: INDICATION: Trauma. TECHNIQUE: Right hand radiographs, 3 views. COMPARISON: None. FINDINGS: Acute, comminuted, spiral fracture of the left 5th metacarpal shaft. No definite intra-articular extension. There is apex volar angulation. Moderate overlying soft tissue edema involving the dorsum of the left hand. Additionally, there is an acute, nondisplaced, comminuted fracture of the 4th middle phalangeal base, with likely intra-articular extension. Limited evaluation of the distal aspects of the digits due to patient positioning. The carpal arcs appear maintained. The scaphoid appears intact. Moderate diffuse osteoarthritic degeneration. No radiopaque foreign bodies. IMPRESSION: 1. Acute comminuted spiral fracture of the left 5th metacarpal shaft. 2. Acute, nondisplaced, comminuted fracture of the 4th middle phalangeal base, with likely intra-articular extension. Dictated by Noam Abel MD @ 09/16/2023 6:27:36 PM (Electronic Signature) Discharge Plan Discharge Clinical Impression: Fracture of fifth metacarpal bone of right hand Qualifiers: Encounter type: initial encounter Fracture type: closed Metacarpal location: shaft Fracture alignment: displaced Qualified Code(s): S62.326A - Displaced fracture of shaft of fifth metacarpal bone, right hand, initial encounter for closed fracture Fracture of phalanx of finger of right hand Qualifiers: Encounter type: initial encounter Finger: ring finger Fracture type: closed Phalanx: middle Fall Qualifiers: Encounter type: initial encounter Qualified Code(s): W19.XXXA - Unspecified fall, initial encounter Patient Disposition: Home, Self-Care Condition: Stable Instructions: Finger Fracture (ED), Hand Fracture (ED), Fall Prevention for Older Adults (ED) Additional Instructions: Need to ice and elevate this arm/hand as much as possible to get swelling down, this is very important. Tylenol per bottle directions as needed for pain control. You will need to keep this splint dry. Call the [facility] tomorrow morning, phone number is [phone]. They will get you a follow-up appointment this week. Activity Level: Activity as Tolerated Prescriptions: No Action spironolactone 25 mg tablet 50 mg PO QDAY Qty: 180 3RF tamsulosin 0.4 mg capsule 0.4 mg PO QDAY Qty: 90 0RF atorvastatin 20 mg tablet 20 mg PO QPM Qty: 90 3RF multivitamin [Multiple Vitamins] Tablet 1 tab PO QAM ascorbic acid (vitamin C) [Vitamin C] 250 mg tablet 500 mg PO DAILY cholecalciferol (vitamin D3) 25 mcg (1,000 unit) capsule 25 mcg PO DAILY spironolactone 25 mg Tablet 25 mg PO DAILY Qty: 30 0RF potassium chloride 10 mEq capsule, extended release 20 meq PO DAILY Qty: 60 0RF metolazone 2.5 mg Tablet 5 mg PO DAILY diltiazem HCl 120 mg capsule,extended release 24hr 120 mg PO DAILY warfarin 5 mg tablet See Rx Instructions PO DAILY Qty: 135 4RF Protocol: Dose Management Condition: Sunday Dose/Route: 7.5 mg Instruction: 1.5 x 5 mg tablets Condition: Sunday Dose/Route: 7.5 mg Instruction: 1.5 x 5 mg tablets Condition: Sunday Dose/Route: 7.5 mg Instruction: 1.5 x 5 mg tablets Condition: Sunday Dose/Route: 7.5 mg Instruction: 1.5 x 5 mg tablets Condition: Dose/Route: 5 mg Instruction: 1 x 5 mg tablet Condition: Sunday Dose/Route: 7.5 mg Instruction: 1.5 x 5 mg tablets Condition: Sunday Dose/Route: 7.5 mg Instruction: 1.5 x 5 mg tablets Protocol Text: Adjustment Start Date: 06/28/23 INR Value: 2.4 INR Date: 06/28/23 Recheck Date: 07/28/23 Rx Instructions: 5 mg QD except 7.5 mg QWed orally daily; Greene 5 MG, M 5 MG, Tu 5 MG, W 7.5 MG, Th 5 MG, F 5 MG, Sa 5 MG metoprolol succinate 50 mg tablet extended release 24 hr 50 mg PO DAILY Qty: 90 2RF diltiazem HCl 240 mg capsule,extended release 24hr See Rx Instructions .ROUTE .COMPLEX Qty: 90 1RF Dose Instruction: TAKE ONE CAPSULE BY MOUTH ONCE DAILY Rx Instructions: TAKE ONE CAPSULE BY MOUTH ONCE DAILY finasteride 5 mg tablet 5 mg PO QDAY Qty: 90 3RF Follow Up/Referrals: Rafa Barth MD [Primary Care Provider] - Stand Alone Forms: [facility] Info Instructions Procedures Orthopedic Splinting/Casting Injury #1: Side: right Upper Extremity Injury Location: forearm, wrist and hand Upper extremity immobilizer: ulnar gutter (of forearm to 4th/5th fingers ) Applied by clinician: /DO Conclusion: patient tolerated procedure
--- NOTE | 2023-09-16 17:49 | XR_ITS ---
Patient: KRISTINE SIMPSON Facility:?[facility] Patient ID:?[id number] Site Patient ID:?[id number]. Site :?[id number] Study:?XRay-Extremity Right HAND 3V-09/16/2023 6:10:09 PM Ordering Physician:FATOUMATA Final Report: INDICATION: Trauma. TECHNIQUE: Right hand radiographs, 3 views. COMPARISON: None. FINDINGS: Acute, comminuted, spiral fracture of the left 5th metacarpal shaft. No definite intra-articular extension. There is apex volar angulation. Moderate overlying soft tissue edema involving the dorsum of the left hand. Additionally, there is an acute, nondisplaced, comminuted fracture of the 4th middle phalangeal base, with likely intra-articular extension. Limited evaluation of the distal aspects of the digits due to patient positioning. The carpal arcs appear maintained. The scaphoid appears intact. Moderate diffuse osteoarthritic degeneration. No radiopaque foreign bodies. IMPRESSION: 1. Acute comminuted spiral fracture of the left 5th metacarpal shaft. 2. Acute, nondisplaced, comminuted fracture of the 4th middle phalangeal base, with likely intra-articular extension. Dictated by Noam Abel MD @ 09/16/2023 6:27:36 PM Signed by:?Noam Abel MD @09/16/2023 6:27:36 PM (Electronic Signature)
--- OUTSIDE RECORDS SUMMARY | 2023-09-16 18:00 | XMS_ITS | Clinical Summary ---
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 Max acetaminophen dose: 4000mg in 24 hrs. Active metOLazone (ZAROXOLYN) 5 mg tablet Take 5 mg by mouth once daily. 2 Active cholecalciferol (Vitamin D) 1,000 unit capsule Take 1 Capsule (1,000 units) by mouth once daily. 0 2 Active vit C,X-Iu-peahy-lute in-zeaxan (PreserVision AREDS-2) capsule Take 1 Capsule by mouth once daily. 0 2 Active bisacodyL (DULCOLAX) 10 mg suppositoryIndica tions:Constipatio n, acute Insert 1 Suppository (10 mg) rectally once daily if needed (constipation). 4 Suppository 3 Active ammonium lactate 12% (LACHYDRIN) 12 % creamIndications: Xerosis cutis Apply topically to affected area(s) two times daily. 140 g 3 3 Active potassium chloride (MICRO-K) 10 mEq Controlled-releas e capsuleIndication s:Hypokalemia Take 2 Capsules (20 mEq) by mouth once daily with a meal. 0 3 Active finasteride (PROSCAR) 5 mg tablet Take 5 mg by mouth once daily. 4 Active dilTIAZem CD (CARDIZEM CD) 120 mg extended release 24 hr capsuleIndication s:Longstanding persistent atrial fibrillation (HC) Take 1 Capsule (120 mg) by mouth once daily. 90 Capsule 4 Active spironolactone (ALDACTONE) 25 mg tablet Take 1 Tablet (25 mg) by mouth once daily. 4 Active CPAPIndications:O SA (obstructive sleep apnea) Resmed CPAP machine for home use at pressure 14 cmw epr 3, CPAP mask- mask of choice, fit to comfort one per 3 months 1 Each 4 Active warfarin (COUMADIN) 5 mg tabletIndications :Anticoagulation monitoring, INR range 2-3,Chronic atrial fibrillation (HC) Take by mouth 5 mg (5 mg x 1) daily in the evening OR as directed 4 Active amoxicillin (AMOXIL) 500 mg capsule Take 500 mg by mouth one time if needed. prior to dental appointments 3 Active polyethylene glycoL (MIRALAX) 17 gram/scoop powderIndications :Constipation, acute Mix 1 scoop (17 g) in liquid then take by mouth once daily if needed for Constipation. 4 Active VITAMIN C 1,000 MG TAB Once daily 08/23/19 24 Discontinu ed(*Med complete/R egimen complete/L evel of care change) CPAP As directed 08/30/19 Discontinu ed(*Med complete/R egimen complete/L evel of care change) Xpppf-5-DMG-EPA-F anat Oil 1,000 mg (120 mg-180 mg) cap Take by mouth. 08/23/19 24 Discontinu ed(*Med complete/R egimen complete/L evel of care change) diltiazem CD (CARDIZEM CD) 240 mg extended release 24 hr capsule Take 240 mg by mouth once daily. 08/22/19 Discontinu ed(*Medica tion adjustment ) atorvastatin (LIPITOR) 20 mg tablet Take 20 mg by mouth at bedtime. 2 08/28/19 24 Discontinu ed(*Patien t states no longer taking) zolpidem (AMBIEN) 10 mg tablet Take 10 mg by mouth at bedtime. 2 08/23/19 24 Discontinu ed(*Patien t states no longer taking) gabapentin (NEURONTIN) 100 mg capsule Take 100 mg by mouth at bedtime. 0 2 08/23/19 24 Discontinu ed(*Med complete/R egimen complete/L evel of care change) polyethylene glycoL (MIRALAX) 17 gram/scoop powderIndications :Constipation, acute Mix 1 scoop (17 g) in liquid then take by mouth once daily. 289 g 3 09/06/19 24 Discontinu ed(*Medica tion adjustment ) warfarin (COUMADIN) 5 mg tabletIndications :Chronic atrial fibrillation (HC),Anticoagulat ion monitoring, INR range 2-3 TAKE 5MG BY MOUTH ON SUN/SUN/SUN/SUN/ T AND 7.5MG ON SUNDAY/SUNDAY 104 Tablet 3 08/22/19 Discontinu ed(Reorder (E-cancel not sent)) spironolactone (ALDACTONE) 25 mg tablet Take 50 mg by mouth once daily. 4 08/28/19 Discontinu ed(*Medica tion adjustment ) tamsulosin (FLOMAX) 0.4 mg capsule Take 0.4 mg by mouth. 4 08/28/19 Discontinu ed(*Allerg ic/Adverse Rxn/Side Effects) magnesium oxide (MAG-OX 400) 400 mg tablet Take 400 mg by mouth once daily. 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, idiopathic 09/10/2023 Diverticulosis of colon 09/10/2023 Macular degeneration 09/10/2023 Polyneuropathy 09/10/2023 Pedal edema 09/06/2023 Longstanding persistent atrial fibrillation 08/03 Anticoagulation monitoring, INR range 2-3 2023 Depression, recurrent 08/04/2022 Obesity, morbid 08/04/2022 Chronic [...] 2 years VASOVAGAL SYNCOPE ASCENDING AORTIC ANEURYSM Overview: Documented in previous clinic notes as thoracic aneurysm 5.1 on last measurement with undetermined last imaging OBSTRUCTIVE SLEEP APNEA BPH without urinary obstruction Resolved Problems Problem Noted Date Diagnosed Date Resolved Date Anticoagulation monitoring, INR range 2-3 07/25/2022 12/21/2022 Encounters Date Type Department Care Team Description 09/14/2023 Anticoagulation (warfarin) [facility] [address] [place] [address] 1[facility] [place] Anticoagulation 09/13/2023 12:45 PM CDT Orders Only [facility] [address] [place] [address] Lab[facility] [place] [facility] 09/13/2023 Travel 09/05/2023 10:40 AM CDT Office Visit [facility] [address] [place] [address] Amanda Lopes, DO Follow Up (08/28/2023 apppointment. on heavy drugs can they be changed lower dosage ) 09/05/2023 Orders Only [facility] Scanner 1 scan: (1-Ord) INCOMING RECORDS-LABS, [facility], 09/05/2023 09/05/2023 Orders Only [facility] Scanner 1 scan: (1-Ord) INCOMING RECORDS-LABS, [facility], 09/05/2023 09/05/2023 Orders Only [facility] Staff, Other Clinical 1 scan: (1-Ord) [facility] 09/05/2023 Orders Only [facility] Staff, Other Clinical 1 scan: (1-Ord) [facility] 09/05/2023 Orders Only [facility] Staff, Other Clinical 1 scan: (1-Ord) [facility] 09/05/2023 Orders Only [facility] Staff, Other Clinical 1 scan: (1-Ord) [facility] 09/05/2023 Orders Only [facility] Staff, Other Clinical 1 scan: (1-Ord) [facility] 09/05/2023 Orders Only [facility] Staff, Other Clinical 1 scan: (1-Ord) [facility] 09/05/2023 Orders Only [facility] Staff, Other Clinical 1 scan: (1-Ord) [facility] 09/05/2023 Orders Only [facility] Staff, Other Clinical 1 scan: (1-Ord) [facility] 09/05/2023 Orders Only [facility] Staff, Other Clinical 1 scan: (1-Ord) [facility] 09/05/2023 Orders Only [facility] Staff, Other Clinical 1 scan: (1-Ord) [facility] 09/05/2023 Orders Only [facility] Staff, Other Clinical 1 scan: (1-Ord) [facility] 09/05/2023 Orders Only [facility] Staff, Other Clinical 1 scan: (1-Ord) [facility] 09/05/2023 Orders Only [facility] Staff, Other Clinical 1 scan: (1-Ord) [facility] 09/05/2023 Orders Only [facility] Staff, Other Clinical 1 scan: (1-Ord) [facility] 09/05/2023 Orders Only [facility] Staff, Other Clinical 1 scan: (1-Ord) [facility] 09/05/2023 Orders Only [facility] Staff, Other Clinical 1 scan: (1-Ord) [facility] 09/05/2023 Orders Only [facility] Staff, Other Clinical 1 scan: (1-Ord) [facility] 09/05/2023 Orders Only [facility] Staff, Other Clinical 1 scan: (1-Ord) [facility] 09/05/2023 Orders Only [facility] Staff, Other Clinical 1 scan: (1-Ord) [facility] 09/05/2023 Orders Only [facility] Staff, Other Clinical 1 scan: (1-Ord) [facility] 09/05/2023 Orders Only [facility] Staff, Other Clinical 1 scan: (1-Ord) [facility] 09/05/2023 Orders Only [facility] Staff, Other Clinical 1 scan: (1-Ord) [facility] 09/05/2023 Orders Only [facility] Staff, Other Clinical 1 scan: (1-Ord) [facility] 09/05/2023 Orders Only [facility] Staff, Other Clinical 1 scan: (1-Ord) [facility] 09/05/2023 Orders Only [facility] Staff, Other Clinical 1 scan: (1-Ord) [facility] 09/05/2023 Orders Only [facility] Staff, Other Clinical 1 scan: (1-Ord) [facility] 09/05/2023 Orders Only [facility] Staff, Other Clinical 1 scan: (1-Ord) [facility] 09/05/2023 Orders Only [facility] Staff, Other Clinical 1 scan: (1-Ord) [facility] 09/05/2023 Orders Only [facility] Staff, Other Clinical 1 scan: (1-Ord) [facility] 09/05/2023 Orders Only [facility] Staff, Other Clinical 1 scan: (1-Ord) [facility] 09/05/2023 Orders Only [facility] Staff, Other Clinical 1 scan: (1-Ord) [facility] 09/05/2023 Orders Only [facility] Staff, Other Clinical 1 scan: (1-Ord) [facility] 09/05/2023 Orders Only [facility] Staff, Other Clinical 1 scan: (1-Ord) [facility] 09/05/2023 Travel 08/31/2023 Orders Only [facility] Scanner 1 scan: (1-Ord) INCOMING RECORDS-LABS, [facility], 08/31/2023 08/31/2023 Orders Only [facility] Scanner 1 scan: (1-Ord) [facility], 08/31/2023 08/31/2023 Orders Only [facility] Scanner 1 scan: (1-Ord) INCOMING [facility], 08/31/2023 08/31/2023 Orders Only [facility] Scanner 1 scan: (1-Ord) INCOMING [facility], 08/31/2023 08/31/2023 Orders Only [facility] Scanner 1 scan: (1-Ord) INCOMING [facility], 08/31/2023 08/31/2023 Orders Only [facility] Scanner 1 scan: (1-Ord) INCOMING [facility], 08/31/2023 08/31/2023 Orders Only [facility] Scanner 1 scan: (1-Ord) INCOMING [facility], 08/31/2023 08/31/2023 Orders Only [facility] Scanner 1 scan: (1-Ord) INCOMING [facility], 08/31/2023 08/31/2023 Orders Only [facility] Scanner 1 scan: (1-Ord) INCOMING [facility], 08/31/2023 08/31/2023 Orders Only [facility] Scanner 1 scan: (1-Ord) INCOMING [facility], 08/31/2023 08/31/2023 Orders Only [facility] Scanner 1 scan: (1-Ord) INCOMING [facility], 08/31/2023 08/31/2023 Orders Only [facility] Scanner 1 scan: (1-Ord) INCOMING [facility], 08/31/2023 08/31/2023 Orders Only [facility] Scanner 1 scan: (1-Ord) INCOMING [facility], 08/31/2023 08/31/2023 Orders Only [facility] Scanner 1 scan: (1-Ord) INCOMING [facility], 08/31/2023 08/30/2023 8:00 AM CDT Office Visit [address] [place] [address] Esau Lemus MD Sleep Follow-up 08/30/2023 7:45 AM CDT Orders Only [facility] [address] [place] [address] Lab[place] [facility] 08/30/2023 Telephone [facility] [address] [place] [address] Esau Lemus MD Other (message to sleep provider) 08/30/2023 Anticoagulation (warfarin) [address] [address] 1, [facility] Anticoagulation 08/30/2023 Telephone [facility] [place] [address] Macario Power MD Results 08/30/2023 Travel 08/28/2023 3:30 PM CDT Ancillary Procedure [address] [place] [address] 08/28/2023 2:25 PM CDT Office Visit [address] [place] [address] Macario Power MD General Illness/Other (Been going on for about 6 weeks to 2 months/Shortness of breath, dizziness, sleeping most of the day, feel funny like spacing out, feels like heart rate slows down/Feels like he is losing his memory/Fell Jul 18 was in Hospital on for 5 days/2 weeks ago feel twice wasn't seen/) 08/28/2023 Travel 08/26/2023 Orders Only [facility] Scanner 1 scan: (1-Ord) CASEY, THERAPY REPORT, 08/26/2023 08/22/2023 11:30 AM CDT Office Visit [facility] [place] [address] Amanda Lopes, Fatigue (feels tired most of the time/); Coordination Problems (fell Jul 18) 08/22/2023 Telephone [facility] [address] [place] [address] Amanda Lopes DO Anticoagulation (BENJI Clarity) 08/22/2023 Anticoagulation (warfarin) [facility] [address] [facility] [address] [facility] [place] [facility]ticoagulation (Transfer back to [facility]) 08/22/2023 Telephone [facility] [address] [place] [address] Aditi Jackson MD Anticoagulation (AC standing lab orders) 08/22/2023 Travel 07/23/2023 Lab Requisition [facility] [phone] Luis Miguel Pa MD from Last 3 Months Immunizations Name Administration Dates Next Due COVID-19 vaccine (YAMAPBio NTech 30mcg/0.3mL) PF MDV 03/18/2021,08/14/2020,07/24/2020 Influenza, High-dose Inactivated 019,04/17/2018,03/16/2017,2015,03/29/2015 Influenza, High-dose Quadriv alent Inactivated 03/28/2023,03/08/2022,03/10/2021,2019 Influenza, IIV3 (Age >=3 years) 04/20/2008 Influenza, [...] of Communication with Friends and Fami ly 0 08/28/2023 Alcohol Use Answer Date Recorded How often do you have a drink containing alcohol ? 2 07/25/2022 How many drinks containing a lcohol do you have on a typical day when you are drinking? 0 07/25/2022 How often do you have five or more drinks on one occasion? 0 07/25/2022 Financial Resource Strain Answer Date R ecorded Difficulty of Paying Living Expenses 3 08/28/2023 Difficulty of Paying Living Expenses Not on file 08/28/2023 Food Insecurity Answer Date Recorded Worried About Running Out of Food in the Last Ye ar 1 08/28/2023 Transportation Needs Answer Date Record ed Lack of Transportation (Medical) 1 08/28/2023 Housing Stability Answer Date Recorded Unable to Pay for Housing in the Last Year 1 08/28/2023 Sex and Gender Information Value Date Recorded Sex Assigned at Not on file Gender Identity Not on file Sexual Orientation Not on file Obstetrics History Last Filed Vital Signs Vital Sign Reading Time Taken Comments Blood Pressure 104/68 09/05/2023 10:43 AM CDT Pulse 67 09/05/2023 10:43 AM CDT Temperature 36.8 ??C (98.2 ??F) 04/20/2017 9:20 AM CS T Respiratory Rate 16 04/20/2017 9:20 AM JAVA J[employer]EE TECHNICAL LEAD Oxygen Saturation 97% 09/05/2023 10: 43 AM CDT Inhaled Oxygen Concentration - - Weight 106.3 kg (234 lb 6.4 oz) 024 10:43 AM CDT Height 169.5 cm (5' 6.73) 08/30/2023 7:52 AM CD T Body Mass Index 37.01 08/30/2023 7:52 AM CDT Plan of Treatment Upcoming Encounters Date Type Department Care Team (Late st Contact Info) Description 09/20/2023 1:30 PM CDT Orders Only [facility] [address] [place] [address] [place] 12/04/2023 10:00 AM CDT Office Visit [facility] [address] [place] [address] Esau Lemus MD [address] [place] [address] Health Maintenance Due Date Last Done Comments Zoster (shingles) series for age 50+ (1 of 2) 1986 Medicare Wellness for age 65+ 2001 Pneumococcal series for age 65+ (2 of 2 - PPSV23 or PCV20) 06/23/2015 04/28/2015 Tetanus booster 01/23/2022 01/24/2012, 04/18/2007 COVID-19 vaccine series ( season) 2023 03/18/2021, 08/14/2020, 07/24/2020 Depression screening for age 12+ 04/13/2023 04/13/20, 04/13/2022 Influenza for age 65+ 02/03/2024 03/28/2023 , 03/08/2022, 03/10/2021, Additional history exists BMI (ht and wt on same day) for age 18+ 08/29/2024 08/30/2023, 08/11/2022, 04/13/2022 Tdap Completed 01/24/2012 Medical Devices Implanted Type Area Transport Conductor Device Identifier Shelf Expiration Date Model / Serial / Lot Vincent Lmesther 70x5.5mm [facility] 3d Cvd Titnm - [id number] Implanted:Qty: 2 on 04/17/2017 by Carlos A Del Castillo MD at [facility] Spine Implants N/A: Lumbar Vertebrae Medtronic Spine/Ortho [id number] / / Bone Matrix 6cc Jerome Dbf Putty Dbm - [id number] Implanted:Qty: 1 on 04/17/2017 by Carlos A Del Castillo MD at [facility] N/A: Lumbar Vertebrae Medtronic Spine/Ortho 01/15/2019 [id number] / / [id number] Cnnctr Nadia Heath Ts 3dx Offsettitnm - [id number] Implanted:Qty: 1 on 04/17/2017 by Carlos A Del Castillo MD at [facility] N/A: Lumbar Vertebrae Medtronic Spine/Ortho [id number]# / / Bone Matrix 6cc Jerome Dbf Putty Dbm - [id number] Implanted:Qty: 1 on 04/17/2017 by Carlos A Del Castillo MD at [facility] N/A: Lumbar Vertebrae Medtronic Spine/Ortho 01/15/2019 [id number] / / [id number] Bone 1-4mm 60cc Medtronic Chips Canclls Frozen - [id number] Implanted:Qty: 1 on 04/17/2017 by Carlos A Del Castillo MD at [facility] N/A: Lumbar Vertebrae Medtronic Spine/Ortho 06/17/2021 [id number] / [id number] / [id number] Spacer Lmbr [id number] Capstone Tlif Titnm Coating - [id number] Implanted:Qty: 1 on 04/17/2017 by Carlos A Del Castillo MD at [facility] N/A: Lumbar Vertebrae Medtronic Spine/Ortho 09/24/2023 [id number]# / / [id number] Spacer Lmbr [id number] Capstone Tlif Titnm Coating - [id number] Implanted:Qty: 1 on 04/17/2017 by Carlos A Del Castillo MD at [facility] N/A: Lumbar Vertebrae Medtronic Spine/Ortho 08/16/2024 [id number]# / / [id number] Screw Lmbr Post 7.5x50mm Tsrh 3dx Og Thin Va - [id number] Implanted:Qty: 3 on 04/17/2017 by Carlos A Del Castillo MD at [facility] N/A: Lumbar Vertebrae Medtronic Spine/Ortho [id number] # / / Screw Lmbr Post 7.5x45mm Tsrh 3dx Og Thin Va - [id number] Implanted:Qty: 3 on 04/17/2017 by Carlos A Del Castillo MD at [facility] N/A: Lumbar Vertebrae Medtronic Spine/Ortho [id number] # / / Set Screw Lmbr Tsrh 3dx - [id number] Implanted:Qty: 6 on 04/17/2017 by Carlos A Del Castillo MD at [facility] N/A: Lumbar Vertebrae Medtronic Spine/Ortho [id number]# / / Cnnctr Lmbr Sm Tsrh 3dx Offsettitnm - [id number] Implanted:Qty: 5 on 04/17/2017 by Carlos A Del Castillo MD at [facility] N/A: Lumbar Vertebrae Medtronic Spine/Ortho [id number]# / / Procedures Procedure Name Priority Date/Time Associated Diagnosis Comments BASIC METABOLIC PANEL Routine 09/13/2023 12:28 PM CDT LAYNE (dyspnea on exertion) Longstanding persistent atrial fibrillation (HC) PROTIME-INR STAT 09/13/2023 12:28 PM CDT Longstanding persistent atrial fibrillation (HC) SCAN CORRESP-LABORATORY RESULTS 09/05/2023 4:45 PM CDT SCAN CORRESP-LABORATORY RESULTS 09/05/2023 4:45 PM CDT SCAN CORRESP-LABORATORY RESULTS 09/05/2023 4:45 PM CDT SCAN CORRESP-LABORATORY RESULTS 09/05/2023 4:45 PM CDT SCAN CORRESP-LABORATORY RESULTS 09/05/2023 4:45 PM CDT SCAN CORRESP-LABORATORY RESULTS 09/05/2023 4:45 PM CDT SCAN CORRESP-LABORATORY RESULTS 09/05/2023 4:45 PM CDT SCAN CORRESP-LABORATORY RESULTS 09/05/2023 4:45 PM CDT SCAN CORRESP-LABORATORY RESULTS 09/05/2023 4:45 PM CDT SCAN CORRESP-LABORATORY RESULTS 09/05/2023 4:45 PM CDT SCAN CORRESP-LABORATORY RESULTS 09/05/2023 4:45 PM CDT SCAN CORRESP-LABORATORY RESULTS 09/05/2023 4:45 PM CDT SCAN CORRESP-LABORATORY RESULTS 09/05/2023 4:45 PM CDT SCAN CORRESP-IMAGING 09/05/2023 4:45 PM CDT SCAN CORRESP-IMAGING 09/05/2023 4:45 PM CDT SCAN CORRESP-LABORATORY RESULTS 09/05/2023 4:13 PM CDT SCAN CORRESP-LABORATORY RESULTS 09/05/2023 4:13 PM CDT SCAN CORRESP-LABORATORY RESULTS 09/05/2023 4:13 PM CDT SCAN CORRESP-LABORATORY RESULTS 09/05/2023 4:13 PM CDT SCAN CORRESP-LABORATORY RESULTS 09/05/2023 4:13 PM CDT SCAN CORRESP-LABORATORY RESULTS 09/05/2023 4:13 PM CDT SCAN CORRESP-LABORATORY RESULTS 09/05/2023 4:13 PM CDT SCAN CORRESP-LABORATORY RESULTS 09/05/2023 4:13 PM CDT SCAN CORRESP-LABORATORY RESULTS 09/05/2023 4:13 PM CDT SCAN CORRESP-LABORATORY RESULTS 09/05/2023 4:13 PM CDT SCAN CORRESP-LABORATORY RESULTS 09/05/2023 4:13 PM CDT SCAN CORRESP-LABORATORY RESULTS 09/05/2023 4:13 PM CDT SCAN CORRESP-LABORATORY RESULTS 09/05/2023 4:13 PM CDT SCAN CORRESP-LABORATORY RESULTS 09/05/2023 4:13 PM CDT SCAN CORRESP-LABORATORY RESULTS 09/05/2023 4:13 PM CDT SCAN CORRESP-LABORATORY RESULTS 09/05/2023 4:13 PM CDT SCAN CORRESP-IMAGING 09/05/2023 4:13 PM CDT SCAN CORRESP-IMAGING 09/05/2023 4:13 PM CDT SCAN CORRESP-LABORATORY RESULTS 09/05/2023 12:00 AM CDT SCAN CORRESP-LABORATORY RESULTS 09/05/2023 12:00 AM CDT SCAN CORRESP-EKG RESULTS 08/31/2023 12:00 AM CDT SCAN CORRESP-LABORATORY RESULTS 08/31/2023 12:00 AM CDT SCAN CORRESP-LABORATORY RESULTS 08/31/2023 12:00 AM CDT SCAN CORRESP-LABORATORY RESULTS 08/31/2023 12:00 AM CDT SCAN CORRESP-LABORATORY RESULTS 08/31/2023 12:00 AM CDT SCAN CORRESP-LABORATORY RESULTS 08/31/2023 12:00 AM CDT SCAN CORRESP-LABORATORY RESULTS 08/31/2023 12:00 AM CDT SCAN CORRESP-LABORATORY RESULTS 08/31/2023 12:00 AM CDT SCAN CORRESP-LABORATORY RESULTS 08/31/2023 12:00 AM CDT SCAN CORRESP-LABORATORY RESULTS 08/31/2023 12:00 AM CDT SCAN CORRESP-LABORATORY RESULTS 08/31/2023 12:00 AM CDT SCAN CORRESP-LABORATORY RESULTS 08/31/2023 12:00 AM CDT SCAN CORRESP-LABORATORY RESULTS 08/31/2023 12:00 AM CDT SCAN CORRESP-LABORATORY RESULTS 08/31/2023 12:00 AM CDT INR,POCT Routine 08/30/2023 7:44 AM CDT Longstanding persistent atrial fibrillation (HC) XR CHEST 2 VIEWS PA AND LATERAL Routine 08/28/2023 3:58 PM CDT LAYNE (dyspnea on exertion) VITAMIN D 25 (DEFICIENCY) Routine 08/28/2023 3:38 PM CDT Vitamin D deficiency TSH WITH REFLEX Routine 08/28/2023 3:38 PM CDT Fatigue, unspecified type CBC W PLT NO DIFF Routine 08/28/2023 3:3 8 PM CDT Dizziness BASIC METABOLIC PANEL Routine 08/28/2023 3:38 PM CDT Dizziness SCAN-DIAGNOSTIC REPORT 08/26/2023 12:00 AM CDT INR,POCT Routine 08/22/2023 12:56 PM CDT Longstanding persistent atrial fibrillation (HC) LEGIONELLA AND PNEUMOCOCCAL URINE ANTIGEN Routine 07/22/2023 12:15 PM JAVA J2EE TECHNICAL LEAD from Last 3 Months Results * (ABNORMAL) PROTIME-INR (09/13/2023 12:28 PM CDT) INR 2.9(H) <1.3 09/13/2023 9:24 PM CDT [facility] PROTIME 30.9(H) 10.3 - 12.3 sec 09/13/2023 9:24 PM CDT [facility] Blood BLOOD SPECIMEN / Unknown Venipuncture / Unknown 09/13/2023 12:28 PM CDT 09/13/2023 12:30 PM CDT Narrative [facility] - 09/13/2023 9:24 PM CDT ?Therapeutic Range 2.0-3.0 for most anticoagulated patients 2.5-3.5 or 4.0 for high risk patients The INR is only used for patients on stable oral anticoagulant therapy. It makes no significant contribution to the diagnosis or treatment of patients whose Protime is prolonged for other reasons. INR results are increased when heparin levels exceed 1.0 U/mL, which corresponds to an aPTT >125 seconds if the patient is on UFH. Amandaslava Perez Marianne BAUER HEMATOLOGY [facility] [address] [place] [address], * (ABNORMAL) BASIC METABOLIC PANEL (09/13/2023 12:28 PM CDT) Only the most recent of2 resultswithin the time period is included. SODIUM 136 136 - 145 mmol/L 09/13/2023 10:[address] [facility] POTASSIUM 4.3 3.5 - 5.1 mmol/L 09/13/2023 10:[address] [facility] CHLORIDE 98 98 - 107 mmol/L 09/13/2023 10:[address] [facility] CO2,TOTAL 21(L) 22 - 29 mmol/L 09/13/2023 10:[address] [facility] ANION GAP 17 5 - 18 09/13/2023 10:[address] [facility] GLUCOSE 116(H) 70 - 99 mg/dL 09/13/2023 10:[address] [facility] CALCIUM 9.3 8.8 - 10.2 mg/dL 09/13/2023 10:[address] [facility] BUN 23 8 - 23 mg/dL 09/13/2023 10:09 PM [facility] LABORATORY CREATININE 1.13 0.70 - 1.20 mg/dL 09/13/2023 10:[address] [facility] BUN/CREAT RATIO 20 10 - 20 10:[address] [facility] eGFR 63(L) >90 mL/min/1.7 3m2 09/13/2023 10:[address] [facility] Comment:As of 2021, eG FR is calculated by the CKD-EPI creatinine equation without race adjustment. ??eGFR can be influenced by muscle mass, exercise, and diet. ??The reported eGFR is an estimation only and is only applicable if the renal function is stable. Blood BLOOD SPECIMEN / Unknown Venipuncture / Unknown 09/13/2023 12:28 PM CDT 09/13/2023 12:30 PM CDT Amanda Lopes DO CHEMISTRY Performing Organization Address City/[facility]/ZIP Co de Phone Number [facility] [address] [place] [address], * SCAN CORRESP-LABORATORY RESULTS (09/05/2023 4:45 PM CDT) Only the most recent of44 resultswithin the time period is included. Narrative 09/05/2023 4:45 PM CDT Ordered by an unspecified provider. Other Clinical Staff OTHER * SCAN CORRESP-IMAGING (09/05/2023 4:45 PM CDT) Only the most recent of4 resultswithin the time period is included. Anatomical Region Laterality Modality Other Narrative 09/05/2023 4:45 PM CDT Ordered by an unspecified provider. Other Clinical Staff OTHER * SCAN CORRESP-EKG RESULTS (08/31/2023 12:00 AM CDT) Scanner OTHER * (ABNORMAL) INR,POCT (08/30/2023 7:44 AM CDT) Only the most recent of2 resultswithin the time period is included. INR 3.2(H) <1.3 08/30/2023 7:50 AM CDT [facility] Blood BLOOD SPECIMEN / Unknown 08/30/2023 7:44 AM CDT 08/30/2023 7:50 AM CDT Narrative [facility] - 08/30/2023 7:50 AM CDT ?Therapeutic Range 2.0-3.0 for most anticoagulated patients 2.5-3.5 or 4.0 for high risk patients Amanda Lopes DO LABORATORY [facility] [address] [place] [address], * XR CHEST 2 VIEWS PA AND LATERAL (08/28/2023 3:58 PM CDT) Anatomical Region Laterality Modality CHEST, THORAX, Lung, HEART Compu benji Radiography 08/29/2023 9:43 AM CDT Impressions 08/29/2023 9:43 AM CDT Stable chest x-ray. No evidence of acute pulmonary disease. Dictated by Luis Miguel Aguiar MD @ 08/29/2023 9:43:01 AM (Electronically Signed) Narrative 08/29/2023 9:43 AM CDT For Patients: ??As a result of the Cures Act, medical imaging exams and procedure reports are released immediately into your electronic medical record. ??You may view this report before your referring provider. ??If you have questions, please contact your health care provider. INDICATION: Dyspnea on exertion. Comparison: 07/25/2022. FINDINGS: PA and lateral views of the chest were obtained. The cardiac silhouette and pulmonary vasculature are within normal limits. There is stable scarring in the left lung base. The lungs are otherwise clear. Procedure Note Luis Miguel Aguiar MD - 08/29/2023 For Patients: As a result of the Cures Act, medical imagingexams and procedure reports are released immediately into your electronicmedical record. You may view this report before your referring provider.If you have questions, please contact your health care provider. INDICATION: Dyspnea on exertion. Comparison: 07/25/2022. FINDINGS: PA and lateral views of the chest were obtained. The cardiac silhouetteand pulmonary vasculature are within normal limits. There is stablescarring in the left lung base. The lungs are otherwise clear. IMPRESSION: Stable chest x-ray. No evidence of acute pulmonary disease. Dictated by Luis Miguel Aguiar MD @ 08/29/2023 9:43:01 AM (Electronically Signed) Macario Power MD GENERAL IMAGING * TSH WITH REFLEX (08/28/2023 3:38 PM CDT) Pathologist [facility] TSH 2.21 0.27 - 4.20 uIU/mL 08/29/2023 2:18 PM CDT [facility] Blood BLOOD SPECIMEN / Unknown Venipuncture / Unknown 08/28/2023 3:38 PM CDT 08/28/2023 3:45 PM CDT Narrative [facility] - 08/29/2023 2:18 PM CDT In Adults, TSH values between 5.00 and 10.00 uIU/ml do not necessarily indicate the presence of Hypothyroidism. Correlation with clinical findings such as presence of goiter and/or Thyroperoxidase (TPO) Antibody may be helpful. For more information please refer to KAREN 2004; 291: [phone]. Macario Power MD CHEMISTRY Performing Organization Address [facility] Co de Phone Number [facility] [address] [place] [address] * VITAMIN D 25 (DEFICIENCY) (08/28/2023 3:38 PM CDT) Pathologist [facility] VITAMIN D TOTAL 28.3 20.0 - 80.0 ng/mL 08/29/2023 2:18 PM CDT [facility] Blood BLOOD SPECIMEN / Unknown Venipuncture / Unknown 08/28/2023 3:38 PM CDT 08/28/2023 3:45 PM CDT Narrative [facility] - 08/29/2023 2:18 PM CDT ? Vitamin D Status Deficiency: ? <20 ng/mL Insufficiency: ?20-29 ng/mL Sufficiency: ?30-80 ng/mL Possible Toxicity: ??>80 ng/mL Based on [place] of Medicine recommendations Biotin supplements may cause clinically significant interference for this test assay. ??If interference is suspected, it is strongly recommended that biotin is discontinued for at least one week prior to retesting. Macario Power MD SEND OUTS Performing Organization Address [facility]/ZIP Co de Phone Number [facility] [address] [address], [place] * (ABNORMAL) CBC W PLT NO DIFF (08/28/2023 3:38 PM CDT) WHITE BLOOD COUNT 8.9 4.5 - 11.0 thou/cu mm 08/28/2023 3:51 PM CDT [facility] RED BLOOD COUNT 4.37 4.30 - 5.90 mil/cu mm 08/28/2023 3:51 PM CDT [facility] HEMOGLOBIN 12.9(L) 13.5 - 17.5 g/dL 08/28/2023 3:51 PM CDT [facility] HEMATOCRIT 38.7 37.0 - 53.0 % 08/28/2023 3:51 PM CDT [facility] MCV 89 80 - 100 fL 08/28/2023 3:51 PM CDT [facility] MCH 29.5 26.0 - 34.0 pg 08/28/2023 3:51 PM CDT [facility] MCHC 33.3 32.0 - 36.0 g/dL 08/28/2023 3:51 PM CDT [facility] RDW 14.9 11.5 - 15.5 % 08/28/2023 3:51 PM CDT [facility] PLATELET COUNT 258 140 - 440 thou/cu mm 08/28/2023 3:51 PM CDT [facility] MPV 10.0 6.5 - 11.0 fL 08/28/2023 3:51 PM CDT [facility] Blood BLOOD SPECIMEN / Unknown Venipuncture / Unknown 08/28/2023 3:38 PM CDT 08/28/2023 3:45 PM CDT Macario Power MD HEMATOLOGY [facility] [address] [place] [address], [place] [phone] * SCAN-DIAGNOSTIC REPORT (08/26/2023 12:00 AM CDT) Scanner OTHER * LEGIONELLA AND PNEUMOCOCCAL URINE ANTIGEN (07/22/2023 12:15 PM [employer] TECHNICAL LEAD) STREP PNEUMO ANTIGEN Negative 07/23/2023 4:32 PM [employer] TECHN[employer] LEAD [facility] Comment:Presumptive negative for pneumococcal pneumonia, suggesting no current or recent pneumococcal infection. Infection due to S. pneumoniae cannot be ruled out since the antigen present in the sample may be below the detection limit of the test. LEGIONELLA ANTIGEN Negative 07/23/2023 4:32 PM [employer] TECHNICAL LEAD [facility] Comment:Negative for L.pneum ophila serogroup 1 antigen, suggesting no recent or current infection. Infection due to Legionella cannot be ruled out since other serogroups and species may cause disease, antigen may not be present in urine in early infection, and the level of antigen present may be below the detection limit of the test. Low test sensitivity in patients with mild pneumonia. Urine URINE SPECIMEN / Unknown Client Collect / Unknown 07/22/2023 12:15 PM [employer] TECHNICAL LEAD 07/23/2023 2:20 PM [employer] TECH[employer]ICAL LEAD Luis Miguel Pa MD [facility]OLOG[facility] [address] [place] [address], from Last 3 Months Additional Health Concerns Infection Onset Date Last [...] 12/03/14, right ring 04/12/2017 04/12/2017 Advance Directives * DNR (Latest Code Status on File) Date Activated Date Inactivated Comments 04/17/2017 5:37 PM 04/20/2017 1:08 PM DNR after the first 48 hours post operative phase. Question Answer Comments Code Status Discussion: Discussed * Full Code Date Activated Date Inactivated Comments 04/17/2017 10:39 AM 04/17/2017 5:09 PM Question Answer Comments Code Status Discussion: Not Discussed Care Teams Tank Welder Relationship Specialty Start Date End Date Amanda Lopes DO [address] [place] [address] PCP - General Family Practice 08/22/23
== END 2023-09-16 19:10 | disposition home or self-care (01) ==
PROVIDERS: Emergency Provider Family Medicine; PCP Family Medicine
DX: S62.607A Fracture of unspecified phalanx of left little finger, initial encounter for closed fracture (principal); S62.655A Nondisplaced fracture of middle phalanx of left ring finger, initial encounter for closed fracture; W10.9XXA Fall (on) (from) unspecified stairs and steps, initial encounter
CPT/HCPCS: 29125; 73130; 99283

== ENCOUNTER 2023-11-12 10:15 | Outpatient (RCR) | payer MEDICARE, BC, SELFPAY ==
--- NOTE | 2023-09-24 14:15 | OT.OPOE ---
OT Outpatient Ortho Eval OT Outpatient Ortho Eval* Start: 09/24/23 10:47 Freq: Status: Active Protocol: Document 09/24/23 10:51 JENHernando (Rec: 09/24/23 14:12 MAKENNA [id number]) E-signed By Jana Peralta, OTR/L, CLT OT OP Ortho Eval Details Complexity Complexity Medium Insurance Information Insurance Information Medicare B Outpatient History/Precautions Current Condition/Medical Diagnosis Referring Provider Dr. Renny Linton Treatment Diagnosis M79.641:Pain in R hand, M25. 641:Stiffness in R hand &R60.0 Localized Edema Date of Onset 09/15/23 Other Precautions Medical DX: S62.609A - Fracture of unspecified phalanx of unspecified finger, initial encounter for closed fracture S62.306A - Unspecified fracture of fifth metacarpal bone, right hand, initial encounter for closed fracture S62.609A - Fracture of unspecified phalanx of unspecified finger, initial encounter for closed fracture Other Conditions Methicillin resistant Staphylococcus aureus culture positive (12/2014) Z22.322 - Carrier or suspected carrier of Methicillin resistant Staphylococcus aureus (ICD-10) Frequent falls R29.6 - Repeated falls (ICD-10 ) Heterotopic ossification of bone M89.8X9 - Other specified disorders of bone, unspecified site (ICD-10) Basal cell carcinoma (BCC) C44.91 - Basal cell carcinoma of skin, unspecified (ICD-10) 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/13) H93.13 - Tinnitus, bilateral ( ICD-10) Spinal stenosis of lumbar region without neurogenic claudication (04/17/17) M48.061 - Spinal stenosis, lumbar region without neurogenic claudication (ICD- 10) 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 (07/29/13) H90.3 - Sensorineural hearing loss, bilateral (ICD-10) Seborrheic keratosis L82.1 - Other seborrheic keratosis (ICD-10) Seborrheic dermatitis L21.9 - Seborrheic dermatitis, unspecified (ICD-10) Sciatica M54.30 - Sciatica, unspecified side (ICD-10) Pulmonary nodules R91.8 - Other nonspecific abnormal finding of lung field (ICD-10) Insomnia, unspecified () G47.00 - Insomnia, unspecified (ICD-10) Erysipelas A46 - Erysipelas (ICD-10) Diverticulosis (03/02/10) K57.90 - Diverticulosis of intestine, part unspecified, without perforation or abscess without bleeding (ICD-10) Colon polyp (01/01/09) K63.5 - Polyp of colon (ICD-10 ) 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) K22.70 - Peter's esophagus without dysplasia (ICD-10) Surgical History (Reviewed @ 18:18 by Yue Pichardo MD) Status post transurethral resection of prostate Z90.79 - Acquired absence of other genital organ(s) (ICD-10 ) Status post tonsillectomy and adenoidectomy Z90.89 - Acquired absence of other organs (ICD-10) Status post arthroscopy of right knee (01/01/09) Z98.890 - Other specified postprocedural states (ICD-10) History of fusion of lumbar spine Z98.1 - Arthrodesis status ( ICD-10) History of blepharoplasty Z98.890 - Other specified postprocedural states (ICD-10) History of arthroplasty of left hip Medical/Functional History Medical History Reviewed Yes Prior Level of Function/Mobility Patient is a retired [employer] ( this is his second fall this year). He ambulates w/o an assistive device. Social History Employment Status Retired Current Occupation Retired [employer] Other Critical Job Demands Lives independently with his , Rebecca Naidu Subjective Subjective Subjective 88-year-old patient presented to the [facility] ED on with right hand pain and swelling. Injury occurred the day prior on 09/15/23 and has been icing but the pain has been increasing in his right hand and wrist throughout the day. He is anticoagulated on Coumadin for atrial fibrillation but denies hitting his head. He fell ( slipped on the last step and went down on the concrete with his hand): denies hitting his head, no headache, no loss of consciousness, no neck or back pain. Pain Assessment Pain Present Pain Present Pain Reported Location Right Hand Description Tightness,Pressure,Sharp Intensity 8 Goniometric Comments Goniometric Comments Goniometric Comments R wrist extension: 11 degrees, flexion, 22 degrees radial deviation 9 degrees and ulnar deviation 25 degrees R hand: 5th digit DIP 19 degrees, PIP 50, MCP 60 degrees 4th digits DIP 20 degrees, PIP 35 degrees and MCP 50 degrees OT Objective Data Observations/Posture/Limb Appearance Objective Observations R hand No erythema, induration or other cutaneous changes, 2+ radial pulse, Neurologic intact distally Digits pink, warm, brisk cap refill Ecchymosis throughout the hand and wrist. Significant swelling throughout the hand and wrist. Abrasion overlying the DIP joint of the ring finger and PIP joint of the small finger. Tenderness: severely tender over the fracture sites Skin/Wounds/Edema Comments R wrist circumferential measurement 22 cm's (L wrist/ non-effective side 19 cm's) MP's of the R hand ( circumferential measurement): 24.3 cm's R digit circumferential measurements: 5th digit: 8.5 cm's PIP and 5. 9 cm's DIP 4th digit: 9 cm's PIP and 7.9 cm's DIP 3rd digit: 8.5 cm's PIP, 7.6 cm's DIP 2nd digit: 8.4 cm's PIP and 6. 6 DIP Thumb: 8.1 cm's and 10.1 cm's Additional Information Objective Additional Information Imagining copied from chart ( from ED visit on 09/16/23): FINDINGS: Acute, comminuted, spiral fracture of the left 5th metacarpal shaft. No definite intra-articular extension. There is apex volar angulation . Moderate overlying soft tissue edema involving the dorsum of the left hand. Additionally, there is an acute, nondisplaced, comminuted fracture of the 4th middle phalangeal base, with likely intra-articular extension. Limited evaluation of the distal aspects of the digits due to patient positioning. The carpal arcs appear maintained. The scaphoid appears intact. Moderate diffuse osteoarthritic degeneration. No radiopaque foreign bodies. IMPRESSION: 1. Acute comminuted spiral fracture of the left 5th metacarpal shaft. 2. Acute, nondisplaced, comminuted fracture of the 4th middle phalangeal base, with likely intra-articular extension. OT Problems Problems Problems Decreased Strength,Decreased Range of Motion,Decreased Dexterity,Pain,Decreased Coordination,Sensory Sensitivity,Lifting,Gripping, Pinching Problems Comments Edema in the R hand/all 5 digits and wrist Other Problems Writing,Opening Containers, Dressing,Fasteners Patient Potential Good Assessment Assessment Assessment 88-year-old R hand dominant male patient had a FOOSH injury 09/15/23, resulting in fractures of the R hand 4th and 5th digits. Patient presented to the ED the next day 09/16/23 and had x-rays. He was then seen by ORTHO on with a conservative plan : (copied from provider's note in chart: I put out his fractures. I helped him understand the pros and cons of both nonoperative and operative consideration. The ring finger middle phalanx fracture should do well non operatively given its minimally displaced state. However, the 5th metacarpal fracture is more significantly displaced and shortened and comminuted. This may have a hard time to achieve union spontaneously. However, he notes that he is able to move his hand and fingers with minimal discomfort. This is minor toggling of the digits here in the office today. However, given his age, heart history, and other morbidity, he elects for the nonoperative route at this time. Therefore , I recommend placing the patient in a splint today until he can be seen for an Orthoplast splint. He declines a splint today. I will provide the patient with an occupational therapy referral today for Orthoplast splint fashioning. We will provide him with Tubigrip today (size H). I would like to see the patient back in 4-5 weeks for clinical reassessment and repeat x-rays, three views of the right hand.). OT PLAN: modalities if/as needed, splinting, following ortho guidelines/protocol for AROM and advancing program as patient progresses, development of HEP, reducing pain and edema for increased comfort. Patient's was present with patient at today' s apt, they both were receptive to the information presented today, patient will be back in the clinic tomorrow for a splint to be made. Occupational Therapy Treatment Plan - OP Potential Rehabilitation Potential Good Set Goals Goals Set with Patient Yes Goals Goals 1. Pt will demonstrate pain- free saddle maker and pinch strength comparable to the uninvolved side in order to improve functional grasp, hold, reach, and lifting ability needed to complete self-care, leisure tasks, and work activities. ( unable to measure saddle maker strength on day of eval due to digit fractures). 2. Through activity participation in skilled therapy sessions, and consistency in performing a customized HEP, patient will improve capacity of tendons and muscles to manage load in order to have less pain with ADLs, work, leisure activities and IADLs. 3. Patient will self-report a reduction in R hand/digit pain from 8/10 to <4/10 3 consecutive days in a row. 4. Patient will improve R wrist AROM in order to open doors with his dominant hand ( on EVAL: 09/24/23: R wrist extension: 11 degrees, flexion , 22 degrees radial deviation 9 degrees and ulnar deviation 25 degrees). 5. Patient will have a loss of edema in the R (dominant) hand/digits in order to have increased functional use of his hand for self feeding, oral cares and leisure activities. ON EVAL: 09/24/23: R wrist circumferential measurement 22 cm's (L wrist/ non-effective side 19 cm's) MP's of the R hand ( circumferential measurement): 24.3 cm's R digit circumferential measurements: 5th digit: 8.5 cm's PIP and 5. 9 cm's DIP 4th digit: 9 cm's PIP and 7.9 cm's DIP 3rd digit: 8.5 cm's PIP, 7.6 cm's DIP 2nd digit: 8.4 cm's PIP and 6. 6 DIP Thumb: 8.1 cm's and 10.1 cm's Target Date 8 weeks Treatment Plan Treatment Plan Evaluation,Edema Control,Joint Mobilization,Manual Therapy, Splinting,Wound Care/Scar Management,Therapeutic Exercise,Therapeutic Activities,Self Care/Home Management,Education Expected Frequency 1-2x Week Expected Duration 8-10 Weeks Home Program Home Program Home Program Initiated Home Program Specifics R wrist flexion/extension, radial and ulnar deviation R hand digit AROM to tolerance multiple times per day (active muscle pumping/make a fist (open/close)) multiple times per day. Educated patient and on elevating the R hand (using pillows) above the level of his heart for edema reduction. Recertification Information Recertification Information Initial Certification Date 09/24/23 Recertification Due Date 12/23/23 Click To Default 'Per treatment plan' Per treatment plan Continued Plan of Care and Interventions Per treatment plan Provider Signature Shows Agreement With POC & Medical Necessity Physician Comment/Change Comment or Changes Physician NPI Number #
== END 2024-03-11 23:59 | disposition home or self-care (01) ==
PROVIDERS: PCP Family Medicine; Visit Provider Orthopaedic Surgery Sports Medicine
DX: S62.306A Unspecified fracture of fifth metacarpal bone, right hand, initial encounter for closed fracture (principal); S62.606A Fracture of unspecified phalanx of right little finger, initial encounter for closed fracture; M79.641 Pain in right hand; M25.641 Stiffness of right hand, not elsewhere classified; R60.0 Localized edema; Z51.89 Encounter for other specified aftercare
CPT/HCPCS: 97110; 97140; 97166; L3808; X5282

== ENCOUNTER 2025-04-03 08:52 | Emergency (ER) | payer MEDICARE, BC, SELFPAY ==
--- OUTSIDE RECORDS SUMMARY | 2013-11-25 05:00 | XMS_ITS | Continuity of Care Document ---
Author Organization Manuel [facility] Address [address] [facility] [address] [place] [address] Phone Care Team Providers Care Aircraft Inspector Name Role Phone Unavailable Unavailable Unavailable Allergies, [...] Lo Osm Contr Mat (200-249mg) Offic/outpt E&m [facility] Mod-hi 45 1 Advance Directives Directive Yes / No Effective Date File Name No Information Encounters Encounter Description Practice Location Reason(s) For Visit Diagnoses Date Provider Providers Copied on Encounter LIZ JacksonC, [address] [facility], [place], [place], [address], [place] tel:[phone] [facility] No Information 4 No Information Referring Provider: Carlos A James, [address] [facility] 600, [place], [address]. tel:[phone] DORETHA Jackson, [address] [facility] [address], [place], [place], [address], tel:[phone] [facility] No Information 3 No Information Referring Provider: Carlos A James, [address] [place] [address] 600, [place], [address]. tel:[phone] Offic/outpt E&m [facility] Mod-hi 2 Manuel, LIZ, [address] [facility] [address], [place], [place], [address], tel:[phone] [facility] No Information 3 Sen Mix. [facility] [place], [address]. tel:[phone] Referring Provider: Carlos A James, [address], [place], [address]. tel:[phone] DORETHA Jackson, [address] [facility] [address], [place], [place], [address], tel:[phone] [facility] No Information 2 Wilfred Ritter. [address], [place], [place], [address]. tel:[phone] Referring Provider: Carlos A James, [address], [place], [address]. tel:[phone] Offic/outpt E&m Estab Low-mod [facility], [address] [facility] [address], [place], [place], [address], [place] tel:[phone] [facility] No Information 2 Sen Mix. [address] [place] [address], [address]. tel:[phone] Referring Provider: Carlos A James, [address] [place] [address] [address], [place], [address]. tel:[phone] Offic/outpt E&m Estab Mod-hi [address] [facility], [address] [facility] [address], [place], [place], [address], [place] tel:[phone] [facility] No Information 2 Sen Mix. [address] [place] [address], [address]. tel:[phone] Referring Provider: Carlos A James, [address] [place] [address] [address], [place], [address]. tel:[phone] [facility], [address] [facility] [address], [place], [place], [address], [place] tel:[phone] [facility] No Information [address] [facility], [address], [place], [address], [place]. tel:[phone] Referring Provider: Carlos A James, [address], [place], [address]. tel:[phone] Offic/outpt E&m Estab Low-mod Manuel, [facility], [address], [place], [place], [address], [place] tel:[phone] [facility] No Information 1 Marty BRUCE Ginger. [address] [facility] [address], [facility] [place], [address], [place]. tel:[phone] Referring Provider: Carlos A James, [address], [place], [address]. tel:[phone] Manuel, [facility], [address] [facility] [address], [place], [place], [address], [place] tel:[phone] [facility] No Information 1 Bennett Mark. [address], [place], [place], [address], [place]. tel:[phone] Referring Provider: Carlos A James, [address], [place], [address]. tel:[phone] Manuel, [facility], [address] [facility] [address], [place], [place], [address], [place] tel:[phone] [facility] No Information 1 Bennett Mark. [address], [place], [place], [address], [place]. tel:[phone] Referring Provider: Carlos A James, [address], [place], [address]. tel:[phone] Offic/outpt E&m [place] Mod-hi 45 Manuel, [facility], [address], [place], [place], [address], [place] tel:[phone] [facility] No Information 1 Marty BRUCE Ginger. [address], [facility], [place], [address], [place]. tel:[phone] Referring Provider: Carlos A Del Castillo MD J, [address] [facility] [address], [place], [address]. tel:[phone] Family History Family Member Type Diagnosis Age At Onset No Information Payers Payer name Insurance type Covered republican ID Meena mcintosh(s) Blue Cross Medicare 16 [id number] Social History Type Description Quantity Date Captured [...]
--- OUTSIDE RECORDS SUMMARY | 2013-11-25 05:00 | XMS_ITS | Continuity of Care Document ---
Author Organization Manuel [facility] Address [address] [facility] [address] [place] [address] Phone Care Team Providers Care Special Event Assistant Name Role Phone Unavailable Unavailable Unavailable Allergies, Adverse Reactions, Alerts Substance Reaction Status Criticality No Known Drug Allergies Active No I nformation No Known Drug Allergies Active No I nformation Medications Medication Instructions Dosage Effective Dates (start - stop) Status Comments Jantoven 5 mg Tab take 1 tablet (5MG) by oral route every day 5 MG - Active diltiazem ER 180 mg Cap take 1 capsule (180MG) by oral route every day 180 MG - Active omeprazole 20 mg Cap, Delayed Release take 1 capsule (20MG) by oral route every day before a meal 20 MG - Active metoprolol succinate ER 50 mg 24 hr Tab take 1 tablet (50MG) by oral route every day 50 MG - Active zolpidem 10 mg Tab take 1 tablet (10MG) by oral route every day at bedtime 10 MG - Active Procedures Procedure Date Epid/SAB [...] Lo Osm Contr Mat (200-249mg) Offic/outpt E&m [facility] Mod-hi 45 1 Advance Directives Directive Yes / No Effective Date File Name No Information Encounters Encounter Description Practice Location Reason(s) For Visit Diagnoses Date Provider Providers Copied on Encounter LIZ JacksonC, [address] [facility], [place], [place], [address], [place] tel:[phone] [facility] No Information 4 No Information Referring Provider: Carlos A James, [address] [facility] 600, [place], [address]. tel:[phone] DORETHA Jackson, [address] [facility] 220, [place], [place], [address], tel:[phone] [facility] No Information 3 No Information Referring Provider: Carlos A James, [address] [place] [address] 600, [place], [address]. tel:[phone] Offic/outpt E&m [facility] Mod-hi 2 Manuel, LIZ, [address] [facility] [address], [place], [place], [address], tel:[phone] [facility] No Information 3 Sen Mix. [facility] [place], [address]. tel:[phone] Referring Provider: Carlos A James, [address], [place], [address]. tel:[phone] DORETHA Jackson, [address] [facility] [address], [place], [place], [address], tel:[phone] [facility] No Information 2 Wilfred Ritter. [address], [place], [place], [address]. tel:[phone] Referring Provider: Carlos A James, [address], [place], [address]. tel:[phone] Offic/outpt E&m Estab Low-mod [facility], [address] [facility] [address], [place], [place], [address], [place] tel:[phone] [facility] No Information [address] Sen Mix. [address] [place] [address], [address]. tel:[phone] Referring Provider: Carlos A James, [address] [place] [address] [address], [place], [address]. tel:[phone] Offic/outpt E&m Estab Mod-hi 2 [facility], [address] [facility] [address], [place], [place], [address], [place] tel:[phone] [facility] No Information 2 Sen Mix. [address] [place] [address], [address]. tel:[phone] Referring Provider: Carlos A James, [address] [place] [address] [address], [place], [address]. tel:[phone] [facility], [address] [facility] [address], [place], [place], [address], [place] tel:[phone] [facility] No Information 1 Ceci Dey. [address] [facility], [address], [place], [address], [place]. tel:[phone] Referring Provider: Carlos A James, [address], [place], [address]. tel:[phone] Offic/outpt E&m Estab Low-mod Manuel, [facility], [address], [place], [place], [address], [place] tel:[phone] [facility] No Information 1 Marty BRUCE Ginger. [address] [facility] [address], [facility] [place], [address], [place]. tel:[phone] Referring Provider: Carlos A James, [address], [place], [address]. tel:[phone] Manuel, [facility], [address] [facility] [address], [place], [place], [address], [place] tel:[phone] [facility] No Information 1 Bennett Mark. [address], [place], [place], [address], [place]. tel:[phone] Referring Provider: Carlos A James, [address], [place], [address]. tel:[phone] Manuel, [facility], [address] [facility] [address], [place], [place], [address], [place] tel:[phone] [facility] No Information 1 Bennett Mark. [address], [place], [place], [address], [place]. tel:[phone] Referring Provider: Carlos A James, [address], [place], [address]. tel:[phone] Offic/outpt E&m New Mod-hi 45 Manule, [facility], [address], [place], [place], [address], [place] tel:[phone] [facility] No Information 1 Marty BRUCE Ginger. [address], [facility], [place], [address], [place]. tel:[phone] Referring Provider: Carlos A Del Castillo MD J, [address] [facility] [address], [place], [address]. tel:[phone] Family History Family Member Type Diagnosis Age At Onset No Information Payers Payer name Insurance type Covered democrat ID Meena mcintosh(s) Blue Cross Medicare 16 [id number] Social History Type Description Quantity Date Captured [...]
--- OUTSIDE RECORDS SUMMARY | 2025-04-03 08:55 | XMS_ITS | Clinical Summary ---
Author Organization [facility] Address [address] [place] [id number] Care Team Providers Care Barber Shop Manager Name Role Phone Amanda Lopes DO Primary Care Provider Pradeep Alvarez MD Unavailable Allergies No known active allergies Medications acetaminophen (TYLENOL) 325 mg tablet Take by mouth 3 times daily if needed. Max acetaminophen dose: 4000mg in 24 hrs. Active cholecalciferol (Vitamin D) 1,000 unit capsule Take 1 Capsule (1,000 units) by mouth once daily. 0 022 Active vit C,L-Gv-kldku-lut ein-zeaxan (PreserVision AREDS-2) capsule Take 1 Capsule by mouth once daily. 0 022 Active bisacodyL (DULCOLAX) 10 mg suppositoryIndic ations:Constipat ion, acute Insert 1 Suppository (10 mg) rectally once daily if needed (constipation). 4 Suppository 023 Active ammonium lactate 12% (LACHYDRIN) 12 % creamIndications :Xerosis cutis Apply topically to affected area(s) two times daily. 140 g 3 023 Active polyethylene glycoL (MIRALAX) 17 gram/scoop powderIndication s:Constipation, acute Mix 1 scoop (17 g) in liquid then take by mouth once daily if needed for Constipation. 024 Active metOLazone (ZAROXOLYN) 5 mg tabletIndication s:Pedal edema,Thoracic aortic aneurysm (TAA), unspecified part, unspecified whether ruptured Take 1 Tablet (5 mg) by mouth once daily. 90 Tablet 3 024 Active potassium chloride (KLOR-CON M10) 10 mEq extended-release tablet (part/cryst)Suze cations:Pedal edema,Hypokalemi a Take 2 Tablets (20 mEq) by mouth once daily with a meal. 180 Tablet 3 024 Active triamcinolone 0.5 % creamIndications :Dermatitis Apply topically to affected area(s) three times daily. 15 g 2 024 Active CPAPIndications: MELVI (obstructive sleep apnea) Resmed CPAP machine for home use at pressure 16 cmw epr 3, CPAP mask- mask of choice, fit to comfort one per 3 months 1 Each 024 Active amoxicillin 500 mg capsuleIndicatio ns:Indication present for endocarditis prophylaxis Take 4 Capsules (2,000 mg) by mouth one time if needed (endocarditis prophylaxis). prior to dental appointments 4 Capsule 2 025 Active tamsulosin 0.4 mg capsuleIndicatio ns:BPH with obstruction/lowe r urinary tract symptoms Take 1 Capsule (0.4 mg) by mouth once daily after a meal. 90 Capsule 3 025 Active finasteride 5 mg tabletIndication s:Urine frequency Take 1 Tablet (5 mg) by mouth once daily. Take 5 mg by mouth once daily. 90 Tablet 1 025 Active docosahexaenoic acid/epa (FISH OIL ORAL) Take by mouth. Activ e multivit-min/fol ic/vit K/lycop (MEN'S MULTIVITAMIN ORAL) Take by mouth. Activ e traMADoL (ULTRAM) 50 mg tabletIndication s:Spinal stenosis, lumbar region, without neurogenic claudication,Shiela makenzie osteoarthritis of right knee Take 1 Tablet (50 mg) by mouth every 8 hours if needed for Pain. 15 Tablet 025 Active metoprolol succinate (TOPROL XL) 50 mg sustained-releas e tabletIndication s:Thoracic aortic aneurysm (TAA), unspecified part, unspecified whether ruptured TAKE ONE TABLET BY MOUTH ONCE DAILY 90 Tablet 025 Active warfarin (COUMADIN) 5 mg tabletIndication s:Longstanding persistent atrial fibrillation (HC),Anticoagula tion monitoring, INR range 2-3 TAKE BY MOUTH 7.5 mg (5 mg x 1.5) every Sat; 5 mg (5 mg x 1) all other days IN THE EVENING OR DIRECTED 100 Tablet 025 Active spironolactone 25 mg tabletIndication s:Thoracic aortic aneurysm (TAA), unspecified part, unspecified whether ruptured TAKE ONE TABLET BY MOUTH ONCE DAILY 90 Tablet 025 Active spironolactone 25 mg tabletIndication s:Thoracic aortic aneurysm (TAA), unspecified part, unspecified whether ruptured TAKE ONE TABLET BY MOUTH ONCE DAILY 90 Tablet 025 03/10 Discontinued Active Problems Problem Noted Date Diagnosed Date Nocturia 03/16/2025 Elevated PSA 12/01/2024 Prostate nodule 08/11/2024 BPH with obstruction/lower urinary tract symptom s 08/11/2024 Urinary frequency 08/11/2024 Hx of non-ST elevation myocardial infarction (NS EUNICE) 09/10/2023 MRSA carrier 09/10/2023 Insomnia, idiopathic 09/10/2023 Diverticulosis of colon 09/10/2023 Macular degeneration 09/10/2023 Polyneuropathy 09/10/2023 Pedal edema 09/06/2023 Longstanding persistent atrial fibrillation 08/03 Anticoagulation monitoring, INR range 2-3 2023 Chronic atrial fibrillation 04/13/2022 Overview (04/13/2022): Since 2011. On warfarin. History of left hip replacement 05/22/2018 Primary osteoarthritis of right hip 05/22/2018 Trochanteric bursitis of both hips 05/22/2018 Spinal stenosis, lumbar azalia on, without neurogenic claudication 04/17/2017 Sensorineural hearing loss, bilateral 07/29/2013 Subjective tinnitus 07/29/2013 Peter's esophagus 03/16/2010 Overview (03/16/2010): EGD 03/2010 Peter's esophagus, repeat EGD in 2 years VASOVAGAL SYNCOPE ASCENDING AORTIC ANEURYSM Overview (09/06/2023): Documented in previous clinic notes as thoracic aneurysm 5.1 on last measurement with undetermined last imaging MELVI 11/07/2005 AHI- 81 BPH without urinary obstruction Resolved Problems Problem Noted Date Diagnosed Date Resolved Date Depression, recurrent 08/04/20222023 Obesity, morbid 08/04/2022 02/01/2024 Anticoagulation monitoring, INR range 2-3 07/25/2022 12/21/2022 Encounters Date Type Department Care Team Description 04/01/2025 Nurse Triage [facility] [address] [place] [address] Amanda Lopes DO Hip Pain/problem 04/01/2025 Telephone [facility] [address] [place] [address] Amanda Lopes DO Procedure (X-RAY of hips and back) 03/30/2025 Telephone [facility] [address] [place] [address] Amanda Lopes DO Anticoagulation (Annual re-enrollment /) 03/16/2025 10:00 AM CDT Office Visit [address] [phone] Pradeep Alvarez MD Recheck (bladder diaries and PSA lab results) 03/16/2025 Travel 03/11/2025 1:45 PM CDT Orders Only [address] [phone] Mirna Ruggiero <No scans attached> 03/11/2025 Travel 03/09/2025 Refill [facility] [address] [place] [address] Amanda Lopes DO Refill Request (Spironolactone) 02/25/[address] [address] Esau Lemus MD 02/24/2025 9:00 AM CDT Orders Only [facility] [address] [place] [address] Lab, [place] Lab 02/24/2025 Orders Only [facility] Scanner 1 scan: (1-Ord) RESMED, COMPLIANCE REPORT, 02/24/2025 02/24/2025 Telephone [facility] [address] [facility] [place] [address] Amanda Lopes DO Anticoagulation (Last AC Review ) 02/24/[address] [facility] [address] [place] [phone] Mami Estes PA <No scans attached> 02/24/[address] [facility] [address] [place] [phone] Pradeep Alvarez MD Appointment Request (Lab and urology) 02/24/2025 Anticoagulation (warfarin) [facility] [address] [place] [address] Nurse, [facility] Anticoag Anticoagulation 02/24/2025 Travel 02/23/2025 Orders Only [facility] Scanner 1 scan: (1-Ord) RESMED, COMPLIANCE REPORT, 02/23/2025 02/18/2025 3:30 PM CDT Office Visit [facility] [address] [place] [address] Amanda Lopes DO Medication Management; Urinary Problem (frequency is getting worse) 02/18/2025 Travel 02/01/2025 Refill [facility] [address] [place] [address] Amanda Lopes DO Refill Request (Metoprolol Succinate, Warfarin) 01/13/2025 11:45 AM CDT Orders Only [facility] [address] [place] [address] [facility] [place] <No scans attached> 01/13/2025 Anticoagulation (warfarin) [facility] [address] [place] [address] Nurse, g Anticoag Anticoagulation 01/13/2025 Travel from Last 3 Months Immunizations Immunization Administration Dates Next Due COVID-19 vaccine ([employer] NTSeamless 30mcg/0.3mL) SALVADOR STEPHEN 03/18/2021,08/14/2020,07/24/2020 INFLUENZA, IIV3 PF (AGE >= 6 MO) 05/21/2009 Influenza, High-dose Inactivated 019,04/17/2018,03/16/2017,2015,03/29/2015 Influenza, High-dose Quadriv alent Inactivated 03/28/2023,03/08/2022,03/10/2021,2019 Influenza, IIV3 (Age >=3 years) 04/20/2008 Influenza, IIV4 02/13/2017 Influenza, Inactivated IIV3 (Age 65+ Years) Preserv Free 04/02/2024 Pneumococcal Poly,23-Valent (Pneumovax) 01/23/2024 Pneumococcal conj 13-Valent (Prevnar 13) 04/28/2015 Td, Preservative Free (age > = 7 Years) 04/18/2007 Tdap 01/24/2012 Social History Tobacco Use Types Packs/Day Years Used Date Smoking Tobacco: Never Smokeless Tobacco: Never Tobacco Cessation:Counseling Given: Not Answered Alcohol Use Standard Drinks/Week Comments Not Currently 0 (1 standard drink = 0.6 oz pur e alcohol) PHQ-2 Answer Date Recorded PHQ-2 TOTAL SCORE 1 02/01/2024 Social Connections Answer Date Recorded Do you often feel lonely or isolated from those around you? 0 12/29/2024 Alcohol Use Answer Date Recorded How often do you have a drink containing alcohol ? 2 07/25/2022 How many drinks containing a lcohol do you have on a typical day when you are drinking? 0 07/25/2022 How often do you have five or more drinks on one occasion? 0 07/25/2022 Financial Resource Strain Answer Date R ecorded Difficulty of Paying Living Expenses 3 12/29/2024 Difficulty of Paying Living Expenses Not on file 12/29/2024 Food Insecurity Answer Date Recorded Do you worry your food will run out before you are able to buy more? 1 12/29/2024 Transportation Needs Answer Date Record ed Does lack of transportation keep you from medica l appointments? 1 12/29/2024 Does lack of transportation keep you from work, meetings or getting things that you need? 1 12/29/2024 Housing Stability Answer Date Recorded What is your housing situation today? 1 12/29/2024 Utilities Answer Date Recorded Do you have trouble paying f or utilities (for example, heat, electricity, water, phone)? 1 12/29/2024 Sex and Gender Information Value Date Recorded Sex Assigned at Not on file Legal Sex Male 6:34 AM SINGING WAITER OR WAITRESS Gender Identity Not on file Sexual Orientation Not on file Obstetrics History Last Filed Vital Signs Vital Sign Reading Time Taken Comments Blood Pressure 138/82 03/16/2025 9:43 AM CDT Pulse 72 03/16/2025 9:40 AM CDT Temperature 36.8 C (98.2 F) 04/20/2017 9:20 AM SINGING WAITER OR WAITRESS Respiratory Rate 16 04/20/2017 9:20 AM SINGING WAITER OR WAITRESS Oxygen Saturation 97% 02/18/2025 3:22 PM CDT Inhaled Oxygen Concentration - - Weight 106.6 kg (235 lb) 02/18/2025 3:22 PM CDT Height 167.6 cm (5' 6) 04/24/2024 1:56 PM SINGING WAITER OR WAITRESS Body Mass Index 37.93 04/24/2024 1:56 PM SINGING WAITER OR WAITRESS Plan of Treatment Upcoming Encounters Date Type Department Care Team (Late st Contact Info) Description 04/06/2025 1:50 PM SINGING WAITER OR WAITRESS Office Visit [facility] [address] [place] [address] Amanda Lopes DO [address] [place] [address] 04/14/2025 1:00 PM SINGING WAITER OR WAITRESS Orders Only [facility] [address] [place] [address] [facility], [place] Health Maintenance Due Date Last Done Comments Zoster (shingles) series for age 50+ (1 of 2) 1986 RSV vaccine for adults or (1 - 1-dose 75+ series) 2011 Tetanus booster 01/23/2022 01/24/2012, 04/18/2007 Depression screening for age 12+ 01/31/2025 02/01/2024, 04/13/2022, 04/13/2022 Medicare Wellness for age 65+ 02/01/2025 02/01/2024 Influenza Vaccine (#1) 2025 , 04/01/2019, 04/17/2018, Additional history exists BMI (ht and wt on same day) for age 18+ 04/24/2025 04/24/2024, 02/01/2024, 08/30/2023, Additional history exists Pneumococcal series for age 50+ Completed 01/23/2024, 04/28/2015 Hepatitis B series for 19+ Aged Out N o longer eligible based on patient's age to complete this topic Medical Devices Implanted Type Area Air Sampling And Monitoring Device Identifier Shelf Expiration Date Model / Serial / Lot Vincent Lmbr 70x5.5mm Tsrh 3d Cvd Titnm - [id number] Implanted:Qty: 2 on 04/17/2017 by Carlos A Del Castillo MD at [facility] Spine Implants N/A: Lumbar Vertebrae Medtronic Spine/Ortho [id number] / / Bone Matrix 6cc Aspen Dbf Putty Dbm - [id number] Implanted:Qty: 1 on 04/17/2017 by Carlos A Del Castillo MD at [facility] N/A: Lumbar Vertebrae Medtronic Spine/Ortho 01/15/2019 [id number]# / / [id number] Cnnctr Nadia Heath Tsrh 3dx Offsettitnm - [id number] Implanted:Qty: 1 on 04/17/2017 by Carlos A Del Castillo MD at [facility] N/A: Lumbar Vertebrae Medtronic Spine/Ortho [id number]# / / Bone Matrix 6cc Aspen Dbf Putty Dbm - [id number] Implanted:Qty: 1 on 04/17/2017 by Carlos A Del Castillo MD at [facility] N/A: Lumbar Vertebrae Medtronic Spine/Ortho 01/15/2019 [id number] / / [id number] Bone 1-4mm 60cc Medtronic Chips Canclls Frozen - [id number] Implanted:Qty: 1 on 04/17/2017 by Carlos A Del Castillo MD at [facility] N/A: Lumbar Vertebrae Medtronic Spine/Ortho 06/17/2021 [id number]# / [id number] / [id number] Spacer Lmbr [id number] Capstone Tlif Titnm Coating - [id number] Implanted:Qty: 1 on 04/17/2017 by Carlos A Del Castillo MD at [facility] N/A: Lumbar Vertebrae Medtronic Spine/Ortho 09/24/2023 [id number]# / / [id number] Spacer Lmbr 02b61es Capstone Tlif Titnm Coating - [id number] Implanted:Qty: 1 on 04/17/2017 by Carlos A Del Castillo MD at [facility] N/A: Lumbar Vertebrae Medtronic Spine/Ortho 08/16/2024 [id number]# / / [id number] Screw Lmbr Post 7.5x50mm Tsrh 3dx Og Thin Va - [id number] Implanted:Qty: 3 on 04/17/2017 by Carlos A Del Castillo MD at [facility] N/A: Lumbar Vertebrae Medtronic Spine/Ortho [id number] # / / Screw Lmbr Post 7.5x45mm Tsrh 3dx Og Thin Va - [id number] Implanted:Qty: 3 on 04/17/2017 by Carlos A Del Castillo MD at [facility] N/A: Lumbar Vertebrae Medtronic Spine/Ortho [id number] # / / Set Screw Lmbr Tsrh 3dx - [id number] Implanted:Qty: 6 on 04/17/2017 by Carlos A Del Castillo MD at [facility] N/A: Lumbar Vertebrae Medtronic Spine/Ortho [id number]# / / Cnnctr Lmbr Sm Tsrh 3dx Offsettitnm - [id number] Implanted:Qty: 5 on 04/17/2017 by Carlos A Del Castillo MD at [facility] N/A: Lumbar Vertebrae Medtronic Spine/Ortho [id number]# / / Procedures Procedure Name Priority Date/Time Associated Diagnosis Comments PSA TOTAL Routine 03/11/2025 1:58 PM CDT Elevated PSA INR,POCT Routine 02/24/2025 8:36 AM CDT Longstanding persistent atrial fibrillation (HC) Anticoagulation monitoring, INR range 2-3 SCAN-DIAGNOSTIC REPORT 02/24/2025 12:00 AM CDT SCAN-DIAGNOSTIC REPORT 02/23/2025 12:00 AM CDT INR,POCT Routine 01/13/2025 10:41 AM CDT Longstanding persistent atrial fibrillation (HC) Anticoagulation monitoring, INR range 2-3 from Last 3 Months Results * (ABNORMAL) PSA TOTAL (03/11/2025 1:58 PM CDT) PSA, TOTAL 5.73(H) < OR = 4.00 ng/mL 03/12/2025 4:50 AM CDT [employer] [facility] Comment: The total PSA value from this assay system is standardized against the WHO standard. The test result will be approximately 20% lower when compared to the equimolar-standardized total PSA (Era Jasmin). Comparison of serial PSA results should be interpreted with this fact in mind. This test was performed using the Siemens chemiluminescent method. Values obtained from different assay methods cannot be used interchangeably. PSA levels, regardless of value, should not be interpreted as absolute evidence of the presence or absence of disease. Blood BLOOD SPECIMEN / Unknown [facility] / Unknown 03/11/2025 1:58 PM CDT 03/11/2025 1:59 PM CDT Pradeep Alvarez MD CHEMISTRY Final Result [facility] [id number] [place] [address], * (ABNORMAL) INR - POCT [18309.2] - Standing Order (02/24/2025 8:36 AM CDT) Only the most recent of2 resultswithin the time period is included. INR 2.4(H) ratio 02/24/2025 8:[address] [facility] Comment: INRs >2.9 may be falsely elevated in patients receiving either unfractionated Heparin or Low Molecular Weight Heparin. Follow up testing in a hospital laboratory may be helpful if clinically indicated. INR results of > or = 5.0 should be verified using the standard venipuncture procedure. Reference Range 0.9-1.1 Moderate-intensity Warfarin Therapy 2.0-3.0 Higher-intensity Warfarin Therapy 3.0-4.0 PROTHROMBIN TIMEP 29.4(H) 10.5 - 13.1 sec 02/24/2025 8:[address] [facility] Comment: Point of care fingerstick Prothrombin Time/INR results may vary from venous Prothrombin Time/INR methodologies. Any results exhibiting inconsistency with the patient's clinical status should be repeated using a venous Prothrombin Time/INR method. Blood BLOOD SPECIMEN / Unknown [facility] / Unknown 02/24/2025 8:36 AM CDT 02/24/2025 8:36 AM CDT us Amanda Lopes DO LABORATORY Final Resul t [facility] [address] [address], [place] [phone] [facility] [address] [place] [address], [place] [phone] * SCAN-DIAGNOSTIC REPORT (02/24/2025 12:00 AM CDT) us Scanner OTHER Final Result * SCAN-DIAGNOSTIC REPORT (02/23/2025 12:00 AM CDT) us Scanner OTHER Final Result from Last 3 Months Additional Health Concerns [...] #1 +MRSA 12/03/14, right ring 04/12/2017 04/12/2017 Insurance MEDICARE PART A HB ONLY MEDICARE PART B HB ONLY [employer] [place] [employer] HB ONLY [employer] [place] [employer] MR PB ONLY Advance Directives * DNR (Latest Code Status on File) Date Activated Date Inactivated Comments 04/17/2017 5:37 PM 04/20/2017 1:08 PM DNR after the first 48 hours post operative phase. Question Answer Comments Code Status Discussion: Discussed * Full Code Date Activated Date Inactivated Comments 04/17/2017 10:39 AM 04/17/2017 5:09 PM Question Answer Comments Code Status Discussion: Not Discussed Care Teams Barber Shop Manager Relationship Specialty Start Date End Date Amanda Lopes DO [facility] [place] [address] PCP - General Family Practice 08/22/23 Pradeep Alvarez MD [address] [facility] [place] [address] Surgery - Urology 08/11/24
[2025-04-03 08:59] VITALS: BP 154/90; PULSE 79; RESP 18; TEMP 36.4; O2SAT 97
--- NOTE | 2025-04-03 09:22 | CRLHL7_ITS ---
For Patients: As a result of the Cures Act, medical imaging exams and procedure reports are released immediately into your electronic medical record. You may view this report before your referring provider. If you have questions, please contact your health care provider. INDICATION: Low back pain not otherwise described. COMPARISON: 05/15/2022 TECHNIQUE: AP, lateral and coned lumbosacral lateral views of the lumbar spine. FINDINGS: Redemonstration of posterior interbody lumbosacral fusion from L4 through S1 with posterior paraspinal rods, bilateral pedicle screws and intervertebral disc spacing devices. Unchanged alignment without significant spondylolisthesis. Well-maintained vertebral body heights. Chronic mild L1 inferior endplate anterior wedge compression deformity. Chronic unchanged advanced disc degeneration is noted at contiguous levels of the imaged lower thoracic spine. A left hip arthroplasty is again noted incidentally, incompletely included in the field of view. IMPRESSION: Stable exam compared to 05/15/2022 without specific findings to explain the clinical history. Additional findings as above. Dictated by Jonathan Scruggs MD @ 04/03/2025 9:55:27 AM (Electronically Signed)
--- NOTE | 2025-04-03 09:57 | ED.BACK ---
HPI - Back Pain/Injury General Chief Complaint: Back Injury/Pain Stated Complaint: R side pain radiating into leg/spine Time Seen by Provider: 04/03/25 09:10 History of Present Illness HPI Narrative: Patient is an 89-year-old gentleman who comes in today with acute on chronic low back pain. He has a known history of lumbar spine pain and is status post surgical intervention in the past. He has some radiculopathy down his right leg is still ambulatory. He is taking Tylenol at home which is not adequate. Patient does take Coumadin and has been therapeutic for his atrial fibrillation. No other concerning symptoms such as bowel or bladder symptoms no fevers no chills no night sweats. Patient is unable to get comfortable at night. He states that the pain started when he was helping his sons with harvest and was bouncing on the tractor. Related Data Home Medications ?Medication ?Instructions ?Recorded ?Confirmed multivitamin (Multiple Vitamins 1 tab PO QAM 12/20/21 07/01/24 tablet) ascorbic acid (vitamin C) 250 mg 500 mg PO DAILY 07/20/23 07/01/24 tablet (Vitamin C) cholecalciferol (vitamin D3) 25 25 mcg PO DAILY 07/20/23 07/01/24 mcg (1,000 unit) capsule metolazone 5 mg tablet 5 mg PO DAILY 07/01/24 07/01/24 potassium chloride 10 mEq 20 meq PO 3XD 07/01/24 07/01/24 tablet,extended release(part/cryst) triamcinolone acetonide 0.5 % applic topical 3XD 07/01/24 07/01/24 topical cream Previous Rx's ?Medication ?Instructions ?Recorded warfarin 5 mg tablet See Rx Instructions PO DAILY #135 11/07/22 tabs spironolactone 25 mg tablet 25 mg PO DAILY #30 tabs 07/25/23 atorvastatin 20 mg tablet 20 mg PO QPM #90 tabs 08/01/23 finasteride 5 mg tablet 5 mg PO QDAY #90 tabs 08/02/23 metoprolol succinate 50 mg 50 mg PO DAILY #90 tabs 10/02/23 tablet,extended release 24 hr Allergies Allergy/AdvReac Type Severity Reaction Status Date / Time No Known Allergies Allergy Verified 04/03/25 09:06 Review of Systems Status of ROS: Reports: 10 or more systems reviewed and unremarkable except as noted in History and below [facility] Medical History Methicillin resistant Staphylococcus aureus culture positive (12/2014) ?Z22.322 - Carrier or suspected carrier of Methicillin resistant Staphylococcus aureus (ICD-10) Frequent falls ?R29.6 - Repeated falls (ICD-10) Heterotopic ossification of bone ?M89.8X9 - Other specified disorders of bone, unspecified site (ICD-10) Basal cell carcinoma (BCC) ?C44.91 - Basal cell carcinoma of skin, unspecified (ICD-10) 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/13) ?H93.13 - Tinnitus, bilateral (ICD-10) Spinal stenosis of lumbar region without neurogenic claudication (04/17/17) ?M48.061 - Spinal stenosis, lumbar region without neurogenic claudication (ICD-10) Sensorineural hearing loss (SNHL) of both ears (07/29/13) ?H90.3 - Sensorineural hearing loss, bilateral (ICD-10) Seborrheic keratosis ?L82.1 - Other seborrheic keratosis (ICD-10) Seborrheic dermatitis ?L21.9 - Seborrheic dermatitis, unspecified (ICD-10) Sciatica ?M54.30 - Sciatica, unspecified side (ICD-10) Pulmonary nodules ?R91.8 - Other nonspecific abnormal finding of lung field (ICD-10) Insomnia, unspecified (01/01/09) ?G47.00 - Insomnia, unspecified (ICD-10) Erysipelas ?A46 - Erysipelas (ICD-10) Diverticulosis (03/02/10) ?K57.90 - Diverticulosis of intestine, part unspecified, without perforation or abscess without bleeding (ICD-10) Colon polyp (01/01/09) ?K63.5 - Polyp of colon (ICD-10) 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) ?K22.70 - Peter's esophagus without dysplasia (ICD-10) Surgical History History of ptosis repair ?Z98.890 - Other specified postprocedural states (ICD-10) Status post transurethral resection of prostate ?Z90.79 - Acquired absence of other genital organ(s) (ICD-10) Status post tonsillectomy and adenoidectomy ?Z90.89 - Acquired absence of other organs (ICD-10) Status post arthroscopy of right knee (01/01/09) ?Z98.890 - Other specified postprocedural states (ICD-10) History of fusion of lumbar spine ?Z98.1 - Arthrodesis status (ICD-10) History of blepharoplasty ?Z98.890 - Other specified postprocedural states (ICD-10) History of arthroplasty of left hip (06/09/09) ?Z98.890 - Other specified postprocedural states (ICD-10) Social History Narrative: Lives independently with his , Rebecca. Wishes to be full code. What is your current living situation?: I presently have a place to live Problems where you live: no known problems Problems where you live details: NA In the past 12 months, utilities in danger of being shut off: no In past 12 months, lack of transportation kept you from medical appts, meetings, work, or getting things needed for daily living: no In the past 12 mos, have been you worried that your food would run out before you had money to buy more?: never true In the past 12 mos, the food you bought just didn't last and you didn't have money to buy more?: never true Highest level of school completed/degree received: high school graduate Smoking Status: Former smoker Do you use any of these nicotine containing products: None Second hand tobacco smoke exposure: No How often do you have a drink containing alcohol: monthly or less How many standard drinks containing alcohol do you have on a typical day: 1 or 2 How often do you have six or more drinks on one occasion: Never AUDIT-C Alcohol total score: 1 Non-prescribed substance use: denies use Caffeine: Yes How often does anyone, including family, friends and others, physically hurt you: never How often does anyone, including family, friends and others, insult or talk down to you: never How often does anyone, including family, friends and others, threaten you with harm: never How often does anyone, including family, friends and others, scream or curse at you: never service: Yes Exam Narrative: Exam Narrative: EXAM GENERAL: Patient appears comfortable and well. EYES: No scleral icterus. ENT: Tympanic membranes and oropharynx normal. THYROID: no thyroid nodules or thyrom no focal defects. LYMPH: No supraclavicular or cervical lymphadenopathy. SKIN: Visible skin seen during exam normal or with benign process only. EXT: No dependent lower extremity pedal edema. HEART: Regular rate and rhythm with no murmurs, rubs, or gallops. LUNGS: Clear to auscultation bilaterally with no crackles or wheezes. ABD: Soft, non tender, non distended. PSYCH: Good eye contact, speech is not pressured. Neurologic cranial nerves 2-12 Grossly intact no focal defects. Const: Vital Signs, click to edit/add: Vital Signs - 24 hr 04/03/25 08:59 Temperature 97.5 F L Pulse Rate [Right Pulse Oximeter] 79 Respiratory Rate 18 Blood Pressure [Ri ght Upper Arm] 154/90 H Pulse Oximetry 97 Oxygen Delivery Me thod Room Air Course Vital Signs Vital signs: Initial Vital Signs Temperature 97.5 F L 04/03/25 08:59 Temperature Source Temporal Artery Scan 04/03/25 08:59 Pulse Rate 79 04/03/25 08:59 Pulse Rhythm Regular 04/03/25 08:59 Pulse Strength 3+ Normal 04/03/25 08:59 Respiratory Rate 18 04/03/25 08:59 Blood Pressure 154/90 H 04/03/25 08:59 Blood Pressure Mean 111 H 04/03/25 08:59 Blood Pressure Position Sitting 04/03/25 08:59 Pulse Oximetry 97 04/03/25 08:59 Oxygen Delivery Method Room Air 04/03/25 08:59 Vital Signs Temperature 97.5 F L 04/03/25 08:59 Pulse Rate 79 04/03/25 08:59 Respiratory Rate 18 04/03/25 08:59 Blood Pressure 154/90 H 04/03/25 08:59 Pulse Oximetry 97 04/03/25 08:59 Oxygen Delivery Method Room Air 04/03/25 08:59 Temperature 97.5 F L 04/03/25 08:59 Pulse Rate 79 04/03/25 08:59 Respiratory Rate 18 04/03/25 08:59 Blood Pressure 154/90 H 04/03/25 08:59 Pulse Oximetry 97 04/03/25 08:59 Oxygen Delivery Method Room Air 04/03/25 08:59 MDM - Back Pain/Injury MDM Narrative Medical decision making narrative: Patient seen examined. I do not seen acute neurologic issues. His x-ray on my review shows chronic osteoarthritis with previous fusion. He has no neurologic symptoms on exam and is otherwise medically stable. He does take anticoagulation I will avoid anti-inflammatories at this time. Did prescribe limited number of [place] to be taken as directed without ice and he does have close outpatient follow-up with his primary physician in approximately 3 days. Discharge Plan Discharge Clinical Impression: Low back pain Patient Disposition: Home, Self-Care Condition: Stable Instructions: Acute Low Back Pain (ED) Additional Instructions: [place] as directed no driving ice pack 4 times a day follow-up with your doctor as scheduled next week. Activity Level: No Restrictions Discharge Diet: Regular Prescriptions: No Action atorvastatin 20 mg tablet 20 mg PO QPM Qty: 90 3RF metolazone 5 mg tablet 5 mg PO DAILY triamcinolone acetonide 0.5 % cream topical 3XD potassium chloride 10 mEq tablet,ER particles/crystals 20 meq PO 3XD multivitamin [Multiple Vitamins] Tablet 1 tab PO QAM ascorbic acid (vitamin C) [Vitamin C] 250 mg tablet 500 mg PO DAILY cholecalciferol (vitamin D3) 25 mcg (1,000 unit) capsule 25 mcg PO DAILY spironolactone 25 mg Tablet 25 mg PO DAILY Qty: 30 0RF warfarin 5 mg tablet See Rx Instructions PO DAILY Qty: 135 4RF Protocol: Dose Management Condition: Sunday Dose/Route: 7.5 mg Instruction: 1.5 x 5 mg tablets Condition: Sunday Dose/Route: 7.5 mg Instruction: 1.5 x 5 mg tablets Condition: Sunday Dose/Route: 7.5 mg Instruction: 1.5 x 5 mg tablets Condition: Sunday Dose/Route: 7.5 mg Instruction: 1.5 x 5 mg tablets Condition: Dose/Route: 5 mg Instruction: 1 x 5 mg tablet Condition: Sunday Dose/Route: 7.5 mg Instruction: 1.5 x 5 mg tablets Condition: Sunday Dose/Route: 7.5 mg Instruction: 1.5 x 5 mg tablets Protocol Text: Adjustment Start Date: 06/28/23 INR Value: 2.4 INR Date: 06/28/23 Recheck Date: 07/28/23 Rx Instructions: 5 mg QD except 7.5 mg QWed orally daily; [place] 5 MG, M 5 MG, Tu 5 MG, W 7.5 MG, Th 5 MG, F 5 MG, Sa 5 MG finasteride 5 mg tablet 5 mg PO QDAY Qty: 90 3RF metoprolol succinate 50 mg tablet extended release 24 hr 50 mg PO DAILY Qty: 90 2RF Follow Up/Referrals: Amanda Lopes DO [Primary Care Provider, Family Practice] Stand Alone Forms: MyHealth Info Instructions
== END 2025-04-03 10:12 | disposition home or self-care (01) ==
PROVIDERS: Emergency Provider Internal Medicine; PCP Family Medicine
DX: M54.50 Low back pain, unspecified (principal); G89.29 Other chronic pain
CPT/HCPCS: 72100; 99283; 99284

== ENCOUNTER 2025-04-10 08:54 | Outpatient (CLI) | payer MEDICARE, BC, SELFPAY | END 2025-04-10 08:55 | disposition home or self-care (01) | LOC: AMB 04-15 17:48 | PROVIDERS: PCP Family Medicine; Visit Provider Internal Medicine | DX: S09.90XA Unspecified injury of head, initial encounter (principal); W18.30XA Fall on same level, unspecified, initial encounter; Y92.000 Kitchen of unspecified non-institutional (private) residence as the place of occurrence of the external cause | CPT/HCPCS: A0425; A0429 ==

== ENCOUNTER 2025-04-10 09:37 | Emergency (ER) | payer MEDICARE, BC, SELFPAY ==
--- OUTSIDE RECORDS SUMMARY | 2013-11-25 04:00 | XMS_ITS | Continuity of Care Document ---
Author Organization Manuel [facility] Address [address] [facility] [address] [place] [address] Phone Care Team Providers Care Manager Package Name Role Phone Unavailable Unavailable Unavailable Allergies, Adverse Reactions, Alerts Substance Reaction Status Criticality No Known Drug Allergies Active No I nformation No Known Drug Allergies Active No I nformation Medications Medication Instructions Dosage Effective Dates (start - stop) Status Comments omeprazole 20 mg Cap, Delayed Release take 1 capsule (20MG) by oral route every day before a meal 20 MG - Active diltiazem ER 180 mg Cap take 1 capsule (180MG) by oral route every day 180 MG - Active Jantoven 5 mg Tab take 1 tablet (5MG) by oral route every day 5 MG - Active zolpidem 10 mg Tab take 1 tablet (10MG) by oral route every day at bedtime 10 MG - Active metoprolol succinate ER 50 mg 24 hr Tab take 1 tablet (50MG) by oral route every day 50 MG - Active Procedures Procedure Date Epid/SAB Lumbosacral Fluoroscopic Guidance For Needle Placeme nt - Spine Inj Anes Epidur; Lumb/sac 1 Le 13 Mod cs by same phys, 5 yrs + Epidurography Lo Osm Contr Mat (200-249mg) Depomedrol 80mg IV Admin Kit Fluoroscopy Radiation Exposure Documente d Offic/outpt E&m Estab Mod-hi 2 13 Patient Non Tobacco User Back Pain & Function Assessed 3 Physical Examination Low Back Pain Not C omplete Patient NOT Screened for Alcohol Use Sep Counseling Pt With Low Back Pain 2012 Advise Against Bed Rest Current Med Dosages Verified & Documente d Screen for depression not performed Pain Assessment And Follow Up Plan Docum ented QA DONE RF Lumbar/Sacral Single Level 2 RF Lumbar/Sacral Addtl Level Mod cs by same phys, 5 yrs + IV Cons Sed each addl 15M Marcaine 30ml IV Admin Kit Lactate Ringers 1000 Offic/outpt E&m Estab Low-mod 2 Offic/outpt E&m Estab Mod-hi 2 12 Epid/SAB Lumbosacral Fluoro Needle - Spine Lo Osm Contr Mat (200-249mg) Depomedrol 80mg Marcaine (1 mL = 1 Unit) Offic/outpt E&m Estab Low-mod 1 Fluoro Needle - Spine Lo Osm Contr Mat (200-249mg) Depomedrol 80mg Marcaine (1 mL = 1 Unit) Lumbar MB addl level Lumbar MB single level Mod cs by same phys, 5 yrs + Fluoro Needle - Spine Marcaine (1 mL = 1 Unit) 1000 LR (Ringers) IV Admin Kit Lumbar MB addl level Lumbar MB addl level Inj Anes Facet Jt; Lumb/sac-3rd Level Au Inj Anes Facet Jt; Lumb/sac-1st Level Au Inj Anes Facet Jt; Lumb/sac-2nd Level Au Lo Osm Contr Mat (200-249mg) Inj Anes Facet Jt; Lumb/sac-2nd Level Au Inj Anes Facet Jt; Lumb/sac-3rd Level Au Inj Anes Facet Jt; Lumb/sac-1st Level Au Marcaine (1 mL = 1 Unit) Lo Osm Contr Mat (200-249mg) Offic/outpt E&m [facility] Mod-hi 45 1 Advance Directives Directive Yes / No Effective Date File Name No Information Encounters Encounter Description Practice Location Reason(s) For Visit Diagnoses Date Provider Providers Copied on Encounter LIZ JacksonC, [address] [facility], [place], [place], [id number], [place] tel:[phone] [facility] No Information 4 No Information Referring Provider: Carlos A James, [address] [facility] [address], [place], [address]. tel:[phone] DORETHA Jackson, [address] [facility] [address], [place], [place], [address], tel:[phone] [facility] No Information 3 No Information Referring Provider: Carlos A James, [address] [place] [address] [address], [place], [address]. tel:[phone] Offic/outpt E&m [facility] Mod-hi 2 Manuel, LIZ, [address] [facility] [address], [place], [place], [address], tel:[phone] [facility] No Information 3 Sen Mix. [facility] [place], [address]. tel:[phone] Referring Provider: Carlos A James, [address], [place], [address]. tel:[phone] DORETHA Jackson, [address] [facility] [address], [place], [place], [address], tel:[phone] [facility] No Information 2 Wilfred Ritter. [address], [place], [place], [id number]. tel:[phone] Referring Provider: Carlos A James, [address], [place], [address]. tel:[phone] Offic/outpt E&m Estab Low-mod [facility], [address] [facility] [address], [place], [place], [address], [place] tel:[phone] [facility] No Information 2 Sen Mix. [address] [place] [address], [address]. tel:[phone] Referring Provider: Carlos A James, [address] [place] [address] [address], [place], [address]. tel:[phone] Offic/outpt E&m Estab Mod-hi 2 [facility], [address] [facility], [place], [place], [address], [place] tel:[phone] [facility] No Information 2 Sen Mix. [address] [place] [address], [address]. tel:[phone] Referring Provider: Carlos A James, [address] [place] [address] [address], [place], [address]. tel:[phone] [facility], [address] [facility] [address], [place], [place], [address], [place] tel:[phone] [facility] No Information 1 Ceci Dey. [address] [facility], [address], [place], [address], [place]. tel:[phone] Referring Provider: Carlos A James, [address], [place], [address]. tel:[phone] Offic/outpt E&m Estab Low-mod Manuel, [facility], [address], [place], [place], [address], [place] tel:[phone] [facility] No Information 1 Marty BRUCE Ginger. [address] [facility] [address], [facility] [place], [address], [place]. tel:[phone] Referring Provider: Carlos A James, [address], [place], [address]. tel:[phone] Manuel, [facility], [address] [facility] [address], [place], [place], [address], [place] tel:[phone] [facility] No Information 1 Bennett Mark. [address], [place], [place], [address], [place]. tel:[phone] Referring Provider: Carlos A James, [address], [place], [address]. tel:[phone] Manuel, [facility], [address] [facility], [place], [place], [address], [place] tel:[phone] [facility] No Information 1 Bennett Mark. [address], [place], [place], [address], [place]. tel:[phone] Referring Provider: Carlos A James, [address], [place], [address]. tel:[phone] Offic/outpt E&m [place] Mod-hi 45 Manuel, [facility], [address], [place], [place], [address], [place] tel:[phone] [facility] No Information 1 Marty BRUCE Ginger. [address], [facility], [place], [address], [place]. tel:[phone] Referring Provider: Carlos A Del Castillo MD J, [address] [facility] [address], [place], [address]. tel:[phone] Family History Family Member Type Diagnosis Age At Onset No Information Payers Payer name Insurance type Covered green party ID Meena mcintosh(s) Blue Cross Medicare 16 [id number] Social History Type Description Quantity Date Captured Comments Alcohol Use Details 2 drinks occasionally Caffeine Use Details coffee 2 cups per day Tobacco Use Status No Information Smoking Status Never Smoker Sex Male Vital Signs Date / Time: Height Weight BMI Pulse Rate Blood Pressure Temperature Respiratory Rate Body Surface Area Head Circumference Head Circ. Percentile Wt./Sancho. Percentile BMI percentile Pulse Ox Inhaled Ox 9:45 AM 68 /min 132/82 mm[Hg] 98.00 F 16 /min 95 % 10:26 AM 68 /min 157/95 mm[Hg] 12 /min 96 % 10:32 AM 67 /min 128/82 mm[Hg] 16 /min 96 % 10:37 AM 65 /min 127/75 mm[Hg] 16 /min 98 % 10:42 AM 66 /min 134/83 mm[Hg] 16 /min 96 % 10:21 AM 68 /min 160/95 mm[Hg] 16 /min 96 % Chief Complaint And Reason For Visit No Information Reason For Referral Reason For Referral No Information History Of Present Illness Encounter Date Complaint History Of Prese nt Illness No Information Functional Status Date Functional Assessmen t Pain Score 06/13 Instructions Date Instruction Additional Infor mation No Information Assessments Type Assessment Date No Information Patient Care Teams Name Effective Dates (start - stop) Status Members No Information
--- OUTSIDE RECORDS SUMMARY | 2025-04-10 09:39 | XMS_ITS | Clinical Summary ---
Author Organization [facility] Address [address] [place] [id number] Care Team Providers Care Floor Surfacer Name Role Phone Amanda Lopes DO Primary Care Provider Pradeep Alvarez MD Unavailable Allergies No known active allergies Medications acetaminophen (TYLENOL) 325 mg tablet Take by mouth 3 times daily if needed. Max acetaminophen dose: 4000mg in 24 hrs. Active cholecalciferol (Vitamin D) 1,000 unit capsule Take 1 Capsule (1,000 units) by mouth once daily. 0 022 Active vit C,R-Ra-jglyo-lute in-zeaxan (PreserVision AREDS-2) capsule Take 1 Capsule by mouth once daily. 0 022 Active bisacodyL (DULCOLAX) 10 mg suppositoryIndica tions:Constipatio n, acute Insert 1 Suppository (10 mg) rectally once daily if needed (constipation). 4 Suppository 023 Active ammonium lactate 12% (LACHYDRIN) 12 % creamIndications: Xerosis cutis Apply topically to affected area(s) two times daily. 140 g 3 023 Active polyethylene glycoL (MIRALAX) 17 gram/scoop powderIndications :Constipation, acute Mix 1 scoop (17 g) in liquid then take by mouth once daily if needed for Constipation. 024 Active metOLazone (ZAROXOLYN) 5 mg tabletIndications :Pedal edema,Thoracic aortic aneurysm (TAA), unspecified part, unspecified whether ruptured Take 1 Tablet (5 mg) by mouth once daily. 90 Tablet 3 024 Active potassium chloride (KLOR-CON M10) 10 mEq extended-release tablet (part/cryst)Indic ations:Pedal edema,Hypokalemia Take 2 Tablets (20 mEq) by mouth once daily with a meal. 180 Tablet 3 024 Active triamcinolone 0.5 % creamIndications: Dermatitis Apply topically to affected area(s) three times daily. 15 g 2 024 Active CPAPIndications:O SA (obstructive sleep apnea) Resmed CPAP machine for home use at pressure 16 cmw epr 3, CPAP mask- mask of choice, fit to comfort one per 3 months 1 Each 024 Active amoxicillin 500 mg capsuleIndication s:Indication present for endocarditis prophylaxis Take 4 Capsules (2,000 mg) by mouth one time if needed (endocarditis prophylaxis). prior to dental appointments 4 Capsule 2 025 Active tamsulosin 0.4 mg capsuleIndication s:BPH with obstruction/lower urinary tract symptoms Take 1 Capsule (0.4 mg) by mouth once daily after a meal. 90 Capsule 3 025 Active finasteride 5 mg tabletIndications :Urine frequency Take 1 Tablet (5 mg) by mouth once daily. Take 5 mg by mouth once daily. 90 Tablet 1 025 Active docosahexaenoic acid/epa (FISH OIL ORAL) Take by mouth. Activ e multivit-min/foli c/vit K/lycop (MEN'S MULTIVITAMIN ORAL) Take by mouth. Activ e traMADoL (ULTRAM) 50 mg tabletIndications :Spinal stenosis, lumbar region, without neurogenic claudication,Prim emerald osteoarthritis of right knee Take 1 Tablet (50 mg) by mouth every 8 hours if needed for Pain. 15 Tablet 025 Active metoprolol succinate (TOPROL XL) 50 mg sustained-release tabletIndications :Thoracic aortic aneurysm (TAA), unspecified part, unspecified whether ruptured TAKE ONE TABLET BY MOUTH ONCE DAILY 90 Tablet 025 Active spironolactone 25 mg tabletIndications :Thoracic aortic aneurysm (TAA), unspecified part, unspecified whether ruptured TAKE ONE TABLET BY MOUTH ONCE DAILY 90 Tablet Active HYDROcodone-aceta minophen (5-325 mg/tablet)Indicat ions:Acute midline low back pain with right-sided sciatica,Lumbosac ral radiculopathy at L3 Take 1 Tablet by mouth 4 times daily if needed for Pain. Max acetaminophen dose: 4000 mg in 24 hrs. 60 Tablet Active warfarin (COUMADIN) 5 mg tabletIndications :Longstanding persistent atrial fibrillation (HC),Anticoagulat ion monitoring, INR range 2-3 TAKE BY MOUTH 2.5 mg (5 mg x 0.5) every Sunday; 5 mg (5 mg x 1) all other days IN THE EVENING OR DIRECTED Active warfarin (COUMADIN) 5 mg tabletIndications :Longstanding persistent atrial fibrillation (HC),Anticoagulat ion monitoring, INR range 2-3 TAKE BY MOUTH 7.5 mg (5 mg x 1.5) every Sun; 5 mg (5 mg x 1) all other days IN THE EVENING OR DIRECTED 100 Tablet 2024 Disconti nued(Reo rder (E-cance l not sent)) HYDROcodone-aceta minophen (5-325 mg/tablet) 2024 Disconti nued(*Me dication adjustme nt) Active Problems Problem Noted Date Diagnosed Date [...] Encounters Date Type Department Care Team Description 04/07/2025 Telephone [facility] [address] [place] [address] Amanda Lopes DO Lab (Lab orders needed) 04/06/2025 3:15 PM FINGERNAIL FORMER Ancillary Procedure [facility] [address] [place] [address] Arrived 04/06/2025 1:50 PM FINGERNAIL FORMER Office Visit [facility] [address] [place] [address] Amanda Lopes DO Hip Pain/problem (right side hip pain/Jun 2009 Dr. Menendez [facility]); Back Pain (lower back pain/back surgery-zia Le 04/17/2017); Immunization/Injectio n 04/06/2025 Anticoagulation (warfarin) [facility] [address] [place] [address] Nurse, [facility] Anticoagulation 04/06/2025 Travel 04/03/2025 Orders Only [facility] Scanner 1 scan: (1-Ord) [facility], LUMBAR SPINE 2-3V, 04/03/2025 04/01/2025 Nurse Triage [facility] [address] [facility] [address] Amanda Lopes DO Hip Pain/problem 04/01/2025 Telephone [facility] [address] [facility] [place] [address] Amanda Lopes DO Procedure (X-RAY of hips and back) 03/30/2025 Telephone [facility] [address] [place] [address] Amanda Lopes DO Anticoagulation (Annual re-enrollment /) 03/16/2025 10:00 AM CDT Office Visit [address] [address] Pradeep Alvarez MD Recheck (bladder diaries and PSA lab results) 03/16/2025 Travel 03/11/2025 1:45 PM CDT Orders Only [address] [place] [address] Lab, [place] <No scans attached> 03/11/2025 Travel 03/09/2025 Refill [facility] [address] [facility] [place] [address] Amanda Lopes DO Refill Request (Spironolactone) 02/25/2025 Telephone [facility] [address] [facility] [address] Esau Lemus MD 02/24/2025 9:00 AM CDT Orders Only [address] [place] [address] Lab, [place] Lab 02/24/2025 Orders Only [facility] Scanner 1 scan: (1-Ord) CASEY, COMPLIANCE REPORT, 02/24/2025 02/24/2025 Telephone [facility] [address] [facility] [place] [address] Amanda Lopes DO Anticoagulation (Last AC Review ) 02/24/2025 Orders Only [address] [place] [address] Mami Estes PA <No scans attached> 02/24/2025 Telephone [facility] [address] [place] [address] Pradeep Alvarez MD Appointment Request (Lab and urology) 02/24/2025 Anticoagulation (warfarin) [facility] [address] [place] [address] Nurse, [facility] Anticoag Anticoagulation 02/24/2025 Travel 02/23/2025 Orders Only [facility] Scanner 1 scan: (1-Ord) CASEY, COMPLIANCE REPORT, 02/23/2025 02/18/2025 3:30 PM CDT Office Visit [facility] [address] [place] [address] Amanda Lopes DO Medication Management; Urinary Problem (frequency is getting worse) 02/18/2025 Travel 02/01/2025 Refill [facility] [address] [place] [address] Amanda Lopes DO Refill Request (Metoprolol Succinate, Warfarin) 01/13/2025 11:45 AM CDT Orders Only [facility] [address] [place] [address] Lab, [place] <No scans attached> 01/13/2025 Anticoagulation (warfarin) [facility] [address] [place] [address] Nurse, [facility] Anticoag Anticoagulation 01/13/2025 Travel from Last 3 Months Immunizations Immunization Administration Dates Next Due COVID-19 vaccine ([email or web address] 30mcg/0.3mL) PFSALVADOR 03/18/2021,08/14/2020,07/24/2020 INFLUENZA, IIV3 PF (AGE >= 6 MO) 05/21/2009 Influenza, High-dose Inactivated 019,04/17/2018,03/16/2017,2015,03/29/2015 Influenza, High-dose Quadriv alent Inactivated 04/02/2024,03/28/2023,03/08/2022,2020,03/17/2020 Influenza, IIV3 (Age >=3 years) 04/20/2008 Influenza, IIV4 02/13/2017 Influenza, Inactivated IIV3 (Age 65+ Years) Preserv Free 04/06/2025,04/02/2024 Influenza, Intradermal, Quad rivalent, Pf 04/01/2019,04/17/2018,03/16/2017,2015,03/29/2015,05/21/2009,04/20/2008 Pneumococcal Poly,23-Valent (Pneumovax) 01/23/2024 Pneumococcal conj 13-Valent (Prevnar 13) 04/28/2015 Td (Age >=7 Years) 04/18/2007 Td, Preservative Free (age > = 7 [...] on file Legal Sex Male 6:34 AM FINGERNAIL FORMER Gender Identity Not on file Sexual Orientation Not on file Obstetrics History Last Filed Vital Signs Vital Sign Reading Time Taken Comments Blood Pressure 123/77 04/06/2025 1:55 PM FINGERNAIL FORMER Pulse 67 04/06/2025 1:55 PM FINGERNAIL FORMER Temperature 36.8 C (98.2 F) 04/20/2017 9:20 AM FINGERNAIL FORMER Respiratory Rate 16 04/20/2017 9:20 AM FINGERNAIL FORMER Oxygen Saturation 98% 04/06/2025 1:55 PM FINGERNAIL FORMER Inhaled Oxygen Concentration - - Weight 107 kg (236 lb) 04/06/2025 1:55 PM FINGERNAIL FORMER Height 167.6 cm (5' 6) 04/24/2024 1:56 PM FINGERNAIL FORMER Body Mass Index 38.09 04/24/2024 1:56 PM FINGERNAIL FORMER Plan of Treatment Upcoming Encounters Date Type Department Care Team (Late st Contact Info) Description 04/10/2025 2:45 PM FINGERNAIL FORMER Orders Only [facility] [address] [place] [address] Lab, [facility] 04/14/2025 1:00 PM FINGERNAIL FORMER Orders Only [facility] [address] [place] [address] Lab, [place] 04/15/2025 9:00 AM FINGERNAIL FORMER Office Visit [facility] [address] [place] [address] Amanda Lopes, [address] [place] [address] Health Maintenance Due Date Last Done Comments Zoster (shingles) series for age 50+ (1 of 2) 1986 RSV vaccine for adults or (1 - 1-dose 75+ series) 2011 Tetanus booster 01/23/2022 01/24/2012, 04/04, 04/18/2007 Depression screening for age 12+ 01/31/2025 02/01/2024, 04/13/2022, 04/13/2022 Medicare Wellness for age 65+ 02/01/2025 02/01/2024 BMI (ht and wt on same day) for age 18+ 04/24/2025 04/24/2024, 02/01/2024, 08/30/2023, Additional history exists Pneumococcal series for age 50+ Completed 01/23/2024, 04/28/2015 Influenza Vaccine Completed 04/06/2025, , 04/01/2019, Additional history exists Hepatitis B series for 19+ Aged Out N o longer eligible based on patient's age to complete this topic Medical Devices Implanted Type Area Linen Grader Device Identifier Shelf Expiration Date Model / Serial / Lot Vincent Lmesther 70x5.5mm [facility] 3d Cvd Titnm - [id number] Implanted:Qty: 2 on 04/17/2017 by Carlos A Del Castillo MD at [facility] Implants N/A: Lumbar Vertebrae Medtronic Spine/Ortho [id number]# / / Bone Matrix 6cc Warwick Dbf Putty Dbm - [id number] Implanted:Qty: 1 on 04/17/2017 by Carlos A Del Castillo MD at [facility] N/A: Lumbar Vertebrae Medtronic Spine/Ortho 01/15/2019 [id number]# / / [id number] Cnnctr Nadia Heath Ts 3dx Offsettitnm - [id number] Implanted:Qty: 1 on 04/17/2017 by Carlos A Del Castillo MD at [facility] N/A: Lumbar Vertebrae Medtronic Spine/Ortho [id number]# / / Bone Matrix 6cc Warwick Dbf Putty Dbm - [id number] Implanted:Qty: 1 on 04/17/2017 by Carlos A Del Castillo MD at [facility] N/A: Lumbar Vertebrae Medtronic Spine/Ortho 01/15/2019 [id number]# / / [id number] Bone 1-4mm 60cc Medtronic Chips Canclls Frozen - [id number] Implanted:Qty: 1 on 04/17/2017 by Carlos A Del Castillo MD at [facility] N/A: Lumbar Vertebrae Medtronic Spine/Ortho 06/17/2021 [id number]# / [id number] / [id number] Spacer Lmbr 47w05tw Capstone Tlif Titnm Coating - [id number] Implanted:Qty: 1 on 04/17/2017 by Carlos A Del Castillo MD at [facility] N/A: Lumbar Vertebrae Medtronic Spine/Ortho 09/24/2023 [id number]# / / [id number] Spacer Lmbr 46t83cc Capstone Tlif Titnm Coating - [id number] Implanted:Qty: 1 on 04/17/2017 by Carlos A Del Castillo MD at [facility] N/A: Lumbar Vertebrae Medtronic Spine/Ortho 08/16/2024 [id number]# / / [id number] Screw Lmbr Post 7.5x50mm Tsrh 3dx Og Thin Va - [id number] Implanted:Qty: 3 on 04/17/2017 by Carlos A Del Castillo MD at [facility] N/A: Lumbar Vertebrae Medtronic Spine/Ortho [id number] # / / Screw Lmbr Post 7.5x45mm Tsrh 3dx Og Thin Va - [id number] Implanted:Qty: 3 on 04/17/2017 by Carlos A Del Castillo MD at [facility] N/A: Lumbar Vertebrae Medtronic Spine/Ortho [id number] # / / Set Screw Lmbr Tsrh 3dx - [id number] Implanted:Qty: 6 on 04/17/2017 by Carlos A Del Castillo MD at [facility] N/A: Lumbar Vertebrae Medtronic Spine/Ortho [id number]# / / Cnnctr Lmbr Sm Tsrh 3dx Offsettitnm - [id number] Implanted:Qty: 5 on 04/17/2017 by Carlos A Del Castillo MD at [facility] N/A: Lumbar Vertebrae Medtronic Spine/Ortho [id number]# / / Procedures Procedure Name Priority Date/Time Associated Diagnosis Comments XR HIP 1 VIEW W PELVIS RIGHT CARMELO 04/06/2025 3:03 PM FINGERNAIL FORMER Hip pain, right PROTIME-INR Routine 04/06/2025 2:50 PM FINGERNAIL FORMER Longstanding persistent atrial fibrillation (HC) Anticoagulation monitoring, INR range 2-3 INR,POCT Routine 04/06/2025 2:38 PM FINGERNAIL FORMER Longstanding persistent atrial fibrillation (HC) Anticoagulation monitoring, INR range 2-3 SCAN-RADIOLOGY REPORT 04/03/2025 12:00 AM CDT PSA TOTAL Routine 03/11/2025 1:58 PM CDT Elevated PSA INR,POCT Routine 02/24/2025 8:36 AM CDT Longstanding persistent atrial fibrillation (HC) Anticoagulation monitoring, INR range 2-3 SCAN-DIAGNOSTIC REPORT 02/24/2025 12:00 AM CDT SCAN-DIAGNOSTIC REPORT 02/23/2025 12:00 AM CDT INR,POCT Routine 01/13/2025 10:41 AM CDT Longstanding persistent atrial fibrillation (HC) Anticoagulation monitoring, INR range 2-3 from Last 3 Months Results * XR HIP 1 VIEW W PELVIS RIGHT (04/06/2025 3:03 PM FINGERNAIL FORMER) Anatomical Region Laterality Modality HIPS, HIPR, Pelvis Computed Radi ography 04/06/2025 3:07 PM FINGERNAIL FORMER Narrative 04/06/2025 3:07 PM FINGERNAIL FORMER For Patients: As a result of the Century Cures Act, medical imaging exams and procedure reports are released immediately into your electronic medical record. You may view this report before your referring provider. If you have questions, please contact your health care provider. Indication: Hip pain, right Technique: Pelvis and right hip 2 views Comparison: 05/16/2018 Findings: Left hip replacement hardware intact. Extensive heterotopic bone about the left hip again noted. Postop changes lower lumbar spine. Narrowing and spurring right hip. No acute fracture. Vascular calcifications. Impression: Mild-moderate degenerative joint disease right hip. Dictated by Jas Olvera MD @ 04/06/2025 3:07:32 PM (Electronically Signed) Procedure Note Jas Olvera MD - 04/06/2025 For Patients: As a result of the Century Cures Act, medical imagingexams and procedure reports are released immediately into your electronicmedical record. You may view this report before your referring provider.If you have questions, please contact your health care provider. Indication: Hip pain, right Technique: Pelvis and right hip 2 views Comparison: 05/16/2018 Findings: Left hip replacement hardware intact. Extensive heterotopic bone about theleft hip again noted. Postop changes lower lumbar spine. Narrowing andspurring right hip. No acute fracture. Vascular calcifications. Impression: Mild-moderate degenerative joint disease right hip. Dictated by Jas Olvera MD @ 04/06/2025 3:07:32 PM (Electronically Signed) us Amanda Lopes DO GENERAL IMAGING Final Resul t * (ABNORMAL) PROTIME-INR [63007.0] - Standing Order (04/06/2025 2:50 PM FINGERNAIL FORMER) INR 4.0(H) <1.3 04/06/2025 10:35 PM FINGERNAIL FORMER [facility] PROTIME 46.4(H) 10.6 - 12.4 sec 04/06/2025 10:35 PM FINGERNAIL FORMER [facility] Blood BLOOD SPECIMEN / Unknown [facility] / Unknown 04/06/2025 2:50 PM FINGERNAIL FORMER 04/06/2025 2:50 PM FINGERNAIL FORMER Narrative [facility] - 04/06/2025 10:35 PM FINGERNAIL FORMER Therapeutic Range 2.0-3.0 for most anticoagulated patients 2.5-3.5 [...] seconds if the patient is on UFH. us Amanda Lopes DO HEMATOLOGY Final Resul t [facility] [address] [place] [address], [place] * INR - POCT [[id number]] - Standing Order (04/06/2025 2:38 PM FINGERNAIL FORMER) Only the most recent of3 resultswithin the time period is included. INR TNP ratio 04/06/2025 2:50 PM FINGERNAIL FORMER [facility] Comment: UNABLE TO REPORT. Out of Range: stat venous INR obtained per protocol to verify result. PROTHROMBIN TIMEP TNP sec 04/06/2025 2:50 PM FINGERNAIL FORMER [facility] Comment: UNABLE TO REPORT. Out of Range: stat venous INR obtained per protocol to verify result. Blood BLOOD SPECIMEN / Unknown [facility] / Unknown 04/06/2025 2:38 PM FINGERNAIL FORMER 04/06/2025 2:38 PM FINGERNAIL FORMER us Amandaslava Perez Detert DO LABORATORY Final Resul t Performing Organization Address City/State/[facility] Co de Phone Number Yumber [facility] [address] [place] [address], [place] [phone] [facility] [address] [place] [address], [place] [phone] * SCAN-RADIOLOGY REPORT (04/03/2025 12:00 AM CDT) Anatomical Region Laterality Modality Other us Scanner OTHER Final Result * (ABNORMAL) PSA TOTAL (03/11/2025 1:58 PM CDT) PSA, TOTAL 5.73(H) < OR = 4.00 ng/mL 03/12/2025 4:50 AM CDT [facility] Comment: The total PSA value from this [...] 1:58 PM CDT 03/11/2025 1:59 PM CDT us Pradeep Alvarez MD CHEMISTRY Final Result [facility] [id number] [place] [address], * SCAN-DIAGNOSTIC REPORT (02/24/2025 12:00 AM CDT) [...] MEDICARE PART B HB ONLY BLUE [facility]OSS [facility] BLUE HB ONLY [facility] [place] BLUE MR PB ONLY Advance Directives * [...] Code Status Discussion: Not Discussed Care Teams Floor Surfacer Relationship Specialty Start Date End Date Amanda Lopes DO [place] [address] PCP - General Family Practice 08/22/23 Pradeep Alvarez MD [address] [place] [address] [place] [address] Surgery - Urology 08/11/24
--- NOTE | 2025-04-10 09:42 | CRLHL7_ITS ---
For Patients: As a result of the Cures Act, medical imaging exams and procedure reports are released immediately into your electronic medical record. You may view this report before your referring provider. If you have questions, please contact your health care provider. INDICATION: Injury COMPARISON: None TECHNIQUE: CT examination of the cervical spine is performed without contrast using spiral technique. Thin axial, sagittal and coronal reconstructions were made. Please note that all CT scans at this facility use dose modulation, iterative reconstruction, and/or weight-based dosing when appropriate to reduce radiation dose to as low as reasonably achievable. FINDINGS: : There is straightening which is probably due to muscle spasm or positioning. Traumatic malalignment Degenerative anterolisthesis of C7 on T1 measuring 2 millimeters. This is not posttraumatic. Moderate to severe degenerative changes mainly at the mid lower cervical spine. No evidence of acute fracture, dislocation or destructive process. IMPRESSION: Straightening. Degenerative changes. No visible acute fracture, dislocation or destructive process. Please note that all CT scans at this facility use dose modulation, iterative reconstruction, and/or weight-based dosing when appropriate to reduce radiation dose to as low as reasonably achievable. Dictated by Lenin Mathis MD @ 04/10/2025 10:08:16 AM (Electronically Signed)
--- NOTE | 2025-04-10 09:43 | CRLHL7_ITS ---
For Patients: As a result of the Century Cures Act, medical imaging exams and procedure reports are released immediately into your electronic medical record. You may view this report before your referring provider. If you have questions, please contact your health care provider. INDICATION: Injury COMPARISON: July 18, 2023 TECHNIQUE: CT examination of the head was performed as axial sections without intravenous contrast. Images were obtained from the vertex of the skull through the skull base. Please note that all CT scans at this facility use dose modulation, iterative reconstruction, and/or weight-based dosing when appropriate to reduce radiation dose to as low as reasonably achievable. FINDINGS: The brain shows no sign of mass lesion, mass effect, hemorrhage, or edema. There are involutional changes. There is mild cortical atrophy and there is mild white matter disease. There is no hydrocephalus. The visualized portions of the orbits are normal in appearance. The osseous structures are normal in appearance with no sign of abnormality in the skull base or calvarium. IMPRESSION: Involutional changes. No acute intracranial posttraumatic findings. Please note that all CT scans at this facility use dose modulation, iterative reconstruction, and/or weight-based dosing when appropriate to reduce radiation dose to as low as reasonably achievable. Dictated by Lenin Mathis MD @ 04/10/2025 10:05:52 AM (Electronically Signed)
[2025-04-10 09:47] VITALS: BP 147/87; PULSE 73; RESP 18; TEMP 36.1; O2SAT 97; BMI 38.1
--- NOTE | 2025-04-10 09:47 | ED.GENADULT ---
HPI - General Adult General Chief complaint: Head Injury/Pain Stated complaint: Fall - hit head Time Seen by Provider: 04/10/25 09:42 Source: patient and EMS Mode of arrival: EMS History of Present Illness HPI narrative: 89-year-old male presenting today after falling at home. He states that he was reaching for something above his head, lost his balance and fell backwards. He fell against a dog gate that had been set up an cracked the gait. He did not lose consciousness. He is complaining of mild neck discomfort. No headache. No nausea or vomiting. No confusion. called EMS. Patient does have a history of atrial fibrillation, is anticoagulated with Coumadin. Related Data Home Medications ?Medication ?Instructions ?Recorded ?Confirmed multivitamin (Multiple Vitamins 1 tab PO QAM 12/20/21 07/01/24 tablet) ascorbic acid (vitamin C) 250 mg 500 mg PO DAILY 07/20/23 07/01/24 tablet (Vitamin C) cholecalciferol (vitamin D3) 25 25 mcg PO DAILY 07/20/23 07/01/24 mcg (1,000 unit) capsule metolazone 5 mg tablet 5 mg PO DAILY 07/01/24 07/01/24 potassium chloride 10 mEq 20 meq PO 3XD 07/01/24 07/01/24 tablet,extended release(part/cryst) triamcinolone acetonide 0.5 % applic topical 3XD 07/01/24 07/01/24 topical cream Previous Rx's ?Medication ?Instructions ?Recorded warfarin 5 mg tablet See Rx Instructions PO DAILY #135 11/07/22 tabs spironolactone 25 mg tablet 25 mg PO DAILY #30 tabs 07/25/23 atorvastatin 20 mg tablet 20 mg PO QPM #90 tabs 08/01/23 finasteride 5 mg tablet 5 mg PO QDAY #90 tabs 08/02/23 metoprolol succinate 50 mg 50 mg PO DAILY #90 tabs 10/02/23 tablet,extended release 24 hr Allergies Allergy/AdvReac Type Severity Reaction Status Date / Time No Known Allergies Allergy Verified 04/03/25 09:06 Review of Systems Status of ROS: Reports: 6 or more systems reviewed and unremarkable except as noted in History and below [facility] Medical History Methicillin resistant Staphylococcus aureus culture positive (12/2014) ?Z22.322 - Carrier or suspected carrier of Methicillin resistant Staphylococcus aureus (ICD-10) Frequent falls ?R29.6 - Repeated falls (ICD-10) Heterotopic ossification of bone ?M89.8X9 - Other specified disorders of bone, unspecified site (ICD-10) Basal cell carcinoma (BCC) ?C44.91 - Basal cell carcinoma of skin, unspecified (ICD-10) 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/13) ?H93.13 - Tinnitus, bilateral (ICD-10) Spinal stenosis of lumbar region without neurogenic claudication (04/17/17) ?M48.061 - Spinal stenosis, lumbar region without neurogenic claudication (ICD-10) Sensorineural hearing loss (SNHL) of both ears (07/29/13) ?H90.3 - Sensorineural hearing loss, bilateral (ICD-10) Seborrheic keratosis ?L82.1 - Other seborrheic keratosis (ICD-10) Seborrheic dermatitis ?L21.9 - Seborrheic dermatitis, unspecified (ICD-10) Sciatica ?M54.30 - Sciatica, unspecified side (ICD-10) Pulmonary nodules ?R91.8 - Other nonspecific abnormal finding of lung field (ICD-10) Insomnia, unspecified (01/01/09) ?G47.00 - Insomnia, unspecified (ICD-10) Erysipelas ?A46 - Erysipelas (ICD-10) Diverticulosis (03/02/10) ?K57.90 - Diverticulosis of intestine, part unspecified, without perforation or abscess without bleeding (ICD-10) Colon polyp (01/01/09) ?K63.5 - Polyp of colon (ICD-10) 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) ?K22.70 - Peter's esophagus without dysplasia (ICD-10) Surgical History History of ptosis repair ?Z98.890 - Other specified postprocedural states (ICD-10) Status post transurethral resection of prostate ?Z90.79 - Acquired absence of other genital organ(s) (ICD-10) Status post tonsillectomy and adenoidectomy ?Z90.89 - Acquired absence of other organs (ICD-10) Status post arthroscopy of right knee (01/01/09) ?Z98.890 - Other specified postprocedural states (ICD-10) History of fusion of lumbar spine ?Z98.1 - Arthrodesis status (ICD-10) History of blepharoplasty ?Z98.890 - Other specified postprocedural states (ICD-10) History of arthroplasty of left hip (06/09/09) ?Z98.890 - Other specified postprocedural states (ICD-10) Social History Narrative: Lives independently with his , Rebecca. Wishes to be full code. What is your current living situation?: I presently have a place to live Problems where you live: no known problems Problems where you live details: NA In the past 12 months, utilities in danger of being shut off: no In past 12 months, lack of transportation kept you from medical appts, meetings, work, or getting things needed for daily living: no In the past 12 mos, have been you worried that your food would run out before you had money to buy more?: never true In the past 12 mos, the food you bought just didn't last and you didn't have money to buy more?: never true Highest level of school completed/degree received: high school graduate Smoking Status: Former smoker Do you use any of these nicotine containing products: None Second hand tobacco smoke exposure: No How often do you have a drink containing alcohol: monthly or less How many standard drinks containing alcohol do you have on a typical day: 1 or 2 How often do you have six or more drinks on one occasion: Never AUDIT-C Alcohol total score: 1 Non-prescribed substance use: denies use Caffeine: Yes How often does anyone, including family, friends and others, physically hurt you: never How often does anyone, including family, friends and others, insult or talk down to you: never How often does anyone, including family, friends and others, threaten you with harm: never How often does anyone, including family, friends and others, scream or curse at you: never service: Yes Exam Narrative: Exam Narrative: Overweight, well-developed patient in no acute distress. Alert and oriented x3. Answers questions appropriately. Mood and affect are appropriate. Thoughts are goal oriented and rational. No tangential or magical thinking noted. Patient speaks in full sentences without needing to catch their breath. GCS is 15. Patient is speaking and breathing without difficulty. There is no obvious significant bleeding noted. HEENT: Normocephalic . Very small abrasion on the top of the scalp. Pupils are equally round reactive to light. Extraocular muscles are intact. Conjunctivae are moist without any icterus noted. Moist mucous membranes. No trauma noted to the inside of the mouth. Neck is soft pain. Cardiovascular: Heart is regular rate and rhythm S1 and S2 are present without any murmurs. Lungs: Clear to auscultation bilaterally no wheezes rhonchi or rales are appreciated. Patient takes deep breaths without any discomfort. Patient has no tenderness to palpation of the anterior, lateral posterior chest wall. Abdomen: Soft and nontender nondistended with normal bowel sounds. Extremities: Bilateral lower extremities show 2+ pitting edema bilaterally. Skin: Well perfused without any obvious rashes. Significant amount of seborrheic keratoses covering his back. Back: Normal appearance. Patient has no tenderness to palpation directly over the cervical, thoracic or lumbar spine. Decreased range of motion at the cervical spine secondary to age and physical ability. Mild discomfort throughout the entire posterior neck. Const: Vital Signs, click to edit/add: Vital Signs - 24 hr 04/10/25 09:47 04/10/25 10:30 04/10/25 11:00 Temperature 97 F L Pulse Rate Pulse Rate [Pulse Oximeter] 73 Respiratory Rate 18 Blood Pressure Blood Pressure [Ri ght Upper Arm] 147/87 H 109/92 H 146/129 H Pulse Oximetry 97 Oxygen Delivery Me thod Room Air 04/10/25 11:29 04/10/25 11:30 04/10/25 11:32 Temperature Pulse Rate 67 67 67 Pulse Rate [Pulse Oximeter] Respiratory Rate Blood Pressure 125/74 Blood Pressure [Ri ght Upper Arm] Pulse Oximetry 97 96 96 Oxygen Delivery Me thod Course Course ED Course: Did proceed with head and neck CT as well as an INR check. INR is therapeutic. Head and neck CT were both unremarkable. Given to discuss results with the patient he stated that he had suddenly developed acute low back pain that was quite sharp and painful. Because of this we did go ahead and proceed with a full spine CT. CT lumbar spine showing no acute pathology. CT thoracic spine showing no acute pathology. Does mention dilated ascending aorta. Patient states that knows that this is present. Upon further discussion, patient states that he does have chronic back pain with exacerbations. Vital Signs Vital signs: Initial Vital Signs Temperature 97 F L 04/10/25 09:47 Temperature Source Temporal Artery Scan 04/10/25 09:47 Pulse Rate 73 04/10/25 09:47 Respiratory Rate 18 04/10/25 09:47 Blood Pressure 147/87 H 04/10/25 09:47 Blood Pressure Mean 107 H 04/10/25 09:47 Blood Pressure Position Supine 04/10/25 09:47 Pulse Oximetry 97 04/10/25 09:47 Oxygen Delivery Method Room Air 04/10/25 09:47 Vital Signs Temperature 97 F L 04/10/25 09:47 Pulse Rate 73 04/10/25 09:47 Respiratory Rate 18 04/10/25 09:47 Blood Pressure 147/87 H 04/10/25 09:47 Pulse Oximetry 97 04/10/25 09:47 Oxygen Delivery Method Room Air 04/10/25 09:47 Temperature 97 F L 04/10/25 09:47 Pulse Rate 67 04/10/25 11:32 Respiratory Rate 18 04/10/25 09:47 Blood Pressure 125/74 04/10/25 11:32 Pulse Oximetry 96 04/10/25 11:32 Oxygen Delivery Method Room Air 04/10/25 09:47 Medications Administered Medications: Discontinued Medications Generic Name Dose Route Start Last Admin Trade Name Freq PRN Reason Stop Dose Admin Fentanyl 50 mcg 04/10/25 10:34 04/10/25 11:06 Fentanyl 100 Mcg/2 Ml Inj IVP 04/10/25 10:35 50 mcg ONCE ONE Administration Medical Decision Making MDM Narrative Medical decision making narrative: 89-year-old male status post fall. No acute pathology found on imaging. Patient has a chronic pain, had 60 tablets of hydrocodone prescribed to him 3 days ago. Lab Data Labs: Lab Results 04/10/25 Range/Units 10:20 INR 2.04 H (0.91-1.10) Imaging Data CT scan - head: Attestation: I have reviewed the pertinent imaging results. Radiologist's impression: TECHNIQUE: CT examination of the head was performed as axial sections without intravenous contrast. Images were obtained from the vertex of the skull through the skull base. Please note that all CT scans at this facility use dose modulation, iterative reconstruction, and/or weight-based dosing when appropriate to reduce radiation dose to as low as reasonably achievable. FINDINGS: The brain shows no sign of mass lesion, mass effect, hemorrhage, or edema. There are involutional changes. There is mild cortical atrophy and there is mild white matter disease. There is no hydrocephalus. The visualized portions of the orbits are normal in appearance. The osseous structures are normal in appearance with no sign of abnormality in the skull base or calvarium. IMPRESSION: Involutional changes. No acute intracranial posttraumatic findings. CT cervical spine: Attestation: I have reviewed the pertinent imaging results. Radiologist's impression: TECHNIQUE: CT examination of the cervical spine is performed without contrast using spiral technique. Thin axial, sagittal and coronal reconstructions were made. Please note that all CT scans at this facility use dose modulation, iterative reconstruction, and/or weight-based dosing when appropriate to reduce radiation dose to as low as reasonably achievable. FINDINGS: : There is straightening which is probably due to muscle spasm or positioning. Traumatic malalignment Degenerative anterolisthesis of C7 on T1 measuring 2 millimeters. This is not posttraumatic. Moderate to severe degenerative changes mainly at the mid lower cervical spine. No evidence of acute fracture, dislocation or destructive process. IMPRESSION: Straightening. Degenerative changes. No visible acute fracture, dislocation or destructive process. CT lumbar spine: Attestation: I have reviewed the pertinent imaging results. Radiologist's impression: Technique: CT of the lumbar spine was performed. Imaging was acquired from the lower thoracic region through the upper sacrum. Contrast was not administered. Sagittal and coronal reformatted imaging was performed. Comparison: None Findings: Bone mineral density is decreased. The height of the vertebral bodies is normal. There is no lytic or blastic lesion and there is no finding of acute fracture, dislocation or destructive process. There are postsurgical changes related to fusion anteriorly and posteriorly at L4, L5 and S1. Associated hardware appears to be intact. There are significant degenerative changes diffusely involving the disc spaces and facet joints. If further imaging is required clinically, consider MRI. Impression: Decreased bone mineral density. Degenerative and postsurgical changes. No visible fracture or acute posttraumatic finding by CT. If further imaging is required clinically, consider MRI. CT thoracic spine: Attestation: I have reviewed the pertinent imaging results. Radiologist's impression: Technique: CT of the thoracic spine was performed. Imaging was acquired from the lower cervical through the upper lumbar region. Contrast was administered. Sagittal and coronal reformatted imaging was performed. Comparison: No prior transaxial studies Findings: Bone mineral density is decreased. There is no visible acute fracture, dislocation or destructive process. 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 This is probably due to diffuse idiopathic skeletal hyperostosis. There is also disc degeneration and facet osteoarthritis Atherosclerotic vascular calcifications incidentally observed. 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 This is only marginally seen though I have no reason to believe that it is currently unstable. Consider follow-up evaluation in the nonacute setting. Impression: 1. No acute posttraumatic findings. 2. Demineralization and degenerative change. 3. Findings of diffuse idiopathic skeletal hyperostosis. 4. Dilated ascending aorta as described in the body of the report Discharge Plan Discharge Clinical Impression: Fall, Aortic dilatation Patient Disposition: Home, Self-Care Condition: Stable Additional Instructions: Imaging today shows no evidence of fractures or breaks. No trauma noted to the inside of the brain, no bleeding. You do have a dilated aorta-which we discussed while you were in the ER. I do recommend that you follow-up with your doctor about this to make sure you are getting appropriate follow-up. Prescriptions: No Action atorvastatin 20 mg tablet 20 mg PO QPM Qty: 90 3RF metolazone 5 mg tablet 5 mg PO DAILY triamcinolone acetonide 0.5 % cream topical 3XD potassium chloride 10 mEq tablet,ER particles/crystals 20 meq PO 3XD multivitamin [Multiple Vitamins] Tablet 1 tab PO QAM ascorbic acid (vitamin C) [Vitamin C] 250 mg tablet 500 mg PO DAILY cholecalciferol (vitamin D3) 25 mcg (1,000 unit) capsule 25 mcg PO DAILY spironolactone 25 mg Tablet 25 mg PO DAILY Qty: 30 0RF warfarin 5 mg tablet See Rx Instructions PO DAILY Qty: 135 4RF Protocol: Dose Management Condition: Sunday Dose/Route: 7.5 mg Instruction: 1.5 x 5 mg tablets Condition: Sunday Dose/Route: 7.5 mg Instruction: 1.5 x 5 mg tablets Condition: Sunday Dose/Route: 7.5 mg Instruction: 1.5 x 5 mg tablets Condition: Sunday Dose/Route: 7.5 mg Instruction: 1.5 x 5 mg tablets Condition: Dose/Route: 5 mg Instruction: 1 x 5 mg tablet Condition: Sunday Dose/Route: 7.5 mg Instruction: 1.5 x 5 mg tablets Condition: Sunday Dose/Route: 7.5 mg Instruction: 1.5 x 5 mg tablets Protocol Text: Adjustment Start Date: 06/28/23 INR Value: 2.4 INR Date: 06/28/23 Recheck Date: 07/28/23 Rx Instructions: 5 mg QD except 7.5 mg QWed orally daily; Greene 5 MG, M 5 MG, Tu 5 MG, W 7.5 MG, Th 5 MG, F 5 MG, Sa 5 MG finasteride 5 mg tablet 5 mg PO QDAY Qty: 90 3RF metoprolol succinate 50 mg tablet extended release 24 hr 50 mg PO DAILY Qty: 90 2RF Follow Up/Referrals: Amanda Lopes DO [Primary Care Provider, Family Practice] Stand Al[facility]: [facility] Info Instructions
--- NOTE | 2025-04-10 10:09 | CRLHL7_ITS ---
For Patients: As a result of the Century Cures Act, medical imaging exams and procedure reports are released immediately into your electronic medical record. You may view this report before your referring provider. If you have questions, please contact your health care provider. Indication: Pain related to trauma. Technique: CT of the lumbar spine was performed. Imaging was acquired from the lower thoracic region through the upper sacrum. Contrast was not administered. Sagittal and coronal reformatted imaging was performed. Comparison: None Findings: Bone mineral density is decreased. The height of the vertebral bodies is normal. There is no lytic or blastic lesion and there is no finding of acute fracture, dislocation or destructive process. There are postsurgical changes related to fusion anteriorly and posteriorly at L4, L5 and S1. Associated hardware appears to be intact. There are significant degenerative changes diffusely involving the disc spaces and facet joints. If further imaging is required clinically, consider MRI. Impression: Decreased bone mineral density. Degenerative and postsurgical changes. No visible fracture or acute posttraumatic finding by CT. If further imaging is required clinically, consider MRI. Please note that all CT scans at this facility use dose modulation, iterative reconstruction, and/or weight-based dosing when appropriate to reduce radiation dose to as low as reasonably achievable. Dictated by Lenin Mathis MD @ 04/10/2025 11:27:32 AM (Electronically Signed)
--- NOTE | 2025-04-10 10:09 | CRLHL7_ITS ---
For Patients: As a result of the Century Cures Act, medical imaging exams and procedure reports are released immediately into your electronic medical record. You may view this report before your referring provider. If you have questions, please contact your health care provider. Indication: Injury with back pain Technique: CT of the thoracic spine was performed. Imaging was acquired from the lower cervical through the upper lumbar region. Contrast was administered. Sagittal and coronal reformatted imaging was performed. Comparison: No prior transaxial studies Findings: Bone mineral density is decreased. There is no visible acute fracture, dislocation or destructive process. 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 This is probably due to diffuse idiopathic skeletal hyperostosis. There is also disc degeneration and facet osteoarthritis Atherosclerotic vascular calcifications incidentally observed. 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 This is only marginally seen though I have no reason to believe that it is currently unstable. Consider follow-up evaluation in the nonacute setting. Impression: 1. No acute posttraumatic findings. 2. Demineralization and degenerative change. 3. Findings of diffuse idiopathic skeletal hyperostosis. 4. Dilated ascending aorta as described in the body of the report Please note that all CT scans at this facility use dose modulation, iterative reconstruction, and/or weight-based dosing when appropriate to reduce radiation dose to as low as reasonably achievable. Dictated by Lenin Mathis MD @ 04/10/2025 11:31:46 AM (Electronically Signed)
[2025-04-10 10:30] VITALS: BP 109/92
[2025-04-10 10:46] LABS: INR 2.04 (0.91-1.10); Prothrombin Time 24.1 Seconds
[2025-04-10 11:00] VITALS: BP 146/129
[2025-04-10 11:29] VITALS: PULSE 67; O2SAT 97
[2025-04-10 11:30] VITALS: PULSE 67; O2SAT 96
[2025-04-10 11:32] VITALS: BP 125/74; PULSE 67; O2SAT 96
== END 2025-04-10 13:18 | disposition home or self-care (01) ==
PROVIDERS: Emergency Provider Family Medicine; PCP Family Medicine
DX: M54.50 Low back pain, unspecified (principal); I77.819 Aortic ectasia, unspecified site; W01.10XA Fall on same level from slipping, tripping and stumbling with subsequent striking against unspecified object, initial encounter
CPT/HCPCS: 36415; 70450; 72125; 72128; 72131; 85610; 96374; 99284; 99285; J3010